=== PATIENT | male | born 1970 ===

== ENCOUNTER 2020-09-03 08:00 | Outpatient (REF) | payer OTHER, SELFPAY ==
[2020-09-03 10:47] LABS: Hematocrit 45.4 % (42-52); Hemoglobin 14.9 g/dl (14.0-18.0); Mean Corpuscular HGB Conc 32.8 g/dl (31.0-36.0); Mean Corpuscular Hemoglobin 30.5 pg (27.0-33.0); Platelet Count 221 X10*3/uL (160-400); Red Blood Count 4.88 X10*6/uL (4.60-5.80); Red Cell Distribution Width 11.9 % (11.0-16.0); White Blood Count 5.5 X10*3/uL (4.8-10.8)
[2020-09-03 11:13] LABS: Alanine Aminotransferase 34 U/L (0-40); Albumin Level 4.5 g/dL (3.5-5.0); Alkaline Phosphatase 68 U/L (39-117); Anion Gap 14 (12-20); Aspartate Amino Transferase 23 U/L (5-37); Bilirubin Direct 0.2 mg/dL (0.0-0.5); Bilirubin Total 0.5 mg/dL (0.0-1.0); Blood Urea Nitrogen 16 mg/dL (9-16); Calcium 9.6 mg/dL (8.4-10.2); Carbon Dioxide 28 mmol/L (22-29); Chloride 104 mmol/L (96-108); Cholesterol 218 mg/dL; Estimated Glomerular Filt Rate 57; Glucose Fasting 105 mg/dL (60-99); HDL Cholesterol 44 mg/dL; LDL Cholesterol Calculated 144 mg/dl; Potassium 4.7 mmol/l (3.3-5.1); Sodium 141 mmol/L (135-145); Total Protein 7.3 g/dL (6.5-8.0); Triglycerides 151 mg/dL
[2020-09-03 11:35] LABS: TSH reflex Free T4 0.81 mIU/mL (0.32-4.0)
== END 2020-09-03 08:01 | disposition home or self-care (01) ==
LOC: HO.WFDLDS 08:00
PROVIDERS: Visit Provider Hospitalist
DX: J45.20 Mild intermittent asthma, uncomplicated (principal); E78.00 Pure hypercholesterolemia, unspecified; E03.9 Hypothyroidism, unspecified
CPT/HCPCS: 36415; 80048; 80061; 80076; 84443; 85027

== ENCOUNTER 2020-09-11 11:48 | Day surgery (SDC) | payer OTHER, SELFPAY ==
--- NOTE | 2020-09-10 09:52 | P.CONAN_ITS ---
Documented by User: Caroline Mejía 09/10/20 09:54 HPI - Anesthesia Eval Consult details Narrative: 50yo M for Upper Endoscopy and Colonoscopy [facility] Past Medical History Medical History Asthma, mild intermittent, well-controlled Chronic GERD Elevated cholesterol Graves' disease Hypothyroidism (acquired) Family History Family History Father Hypertension Mother Family history of thyroid problem Family/Other Depression Bipolar 1 disorder Alcohol abuse Surgical History Surgical History History of tonsillectomy Social History Social History Smoking Status: Never smoker Have you been hit, kicked, punched, or otherwise hurt by someone within the past year? If so, by whom?: No Advance Directives: No Advance Directives Information Provided: Yes Recently lost weight without trying: No Meds Allergies Allergy/AdvReac Type Severity Reaction Status Date / Time latex Allergy Unknown Unknown Verified 09/10/20 10:24 Home Medications Medication Instructions Recorded Confirmed Type albuterol sulfate 90 mcg/actuation INHALATION 08/06/20 History aerosol inhaler atorvastatin 10 mg tablet 10 mg PO DAILY 08/06/20 History beclomethasone dipropionate 80 1 inh INHALATION BID 08/06/20 History mcg/actuation HFA breath activated aerosol levothyroxine 175 mcg tablet 175 mcg PO DAILY 08/06/20 History Exam Exam Date and Time: September 10, 2020 0952 Assessment and Plan Assessment Anesthesia Assessment: Chart Reviewed Documented by User: Iban Leon MD 09/11/20 13:03 [facility] Past Medical History Medical History Asthma, mild intermittent, well-controlled Chronic GERD Elevated cholesterol Graves' disease Hypothyroidism (acquired) Family History Family History Father Hypertension Mother Family history of thyroid problem Family/Other Depression Bipolar 1 disorder Alcohol abuse Surgical History Surgical History History of tonsillectomy Social History Social History Smoking Status: Never smoker Have you been hit, kicked, punched, or otherwise hurt by someone within the past year? If so, by whom?: No Advance Directives: No Advance Directives Information Provided: Yes Recently lost weight without trying: No Meds Allergies Allergy/AdvReac Type Severity Reaction Status Date / Time latex Allergy Unknown Unknown Verified 09/10/20 10:24 Home Medications Medication Instructions Recorded Confirmed Type albuterol sulfate 90 mcg/actuation INHALATION 08/06/20 History aerosol inhaler atorvastatin 10 mg tablet 10 mg PO DAILY 08/06/20 History beclomethasone dipropionate 80 1 inh INHALATION BID 08/06/20 History mcg/actuation HFA breath activated aerosol levothyroxine 175 mcg tablet 175 mcg PO DAILY 08/06/20 History Exam Airway Mallampati Class: II TM Dist: >3cm Neck ROM: Full Loose/Missing/Broken Teeth: No Heart: RRR Lungs: NL Other: AO Assessment and Plan Assessment Anesthesia Assessment: Anesthesia Plan Discussed and Chart Reviewed Final Anesthetic Review NPO: Yes ASA Class: III Final Preanesthetic Review: No Changes in Pt Med Stat, Meds/Allgs Chart Reviewed, Consent Obtained/Reviewed and Anes Risks/Benef Reviewed Patient Risk: Intermediate Procedure Risk: Low Anesthetic Plan Anesthetic Plan: MAC: Disposition: Standard PACU
[2020-09-11 11:58] VITALS: BP 147/78; PULSE 71; RESP 18; TEMP 36.1; O2SAT 99; BMI 34.1
[2020-09-11] MEDS: Lactated Ringers 1,000 ML 100 ML IVCONT (12:18)
--- NOTE | 2020-09-11 13:03 | MHC.SHP ---
Pre-Procedural Eval Section B Chief Complaint: reflux,screening Details of Present Illness: see H&P no changes Relevant Family History (Specify if Yes): No Relevant Social History: None Present Medications: see Short Stay Collaborative assessment Medical History: No relevant PMH History of Previous Operations: No relevant previous surgery Allergies: Allergies Allergy/AdvReac Type Severity Reaction Status Date / Time latex Allergy Unknown Unknown Verified 09/10/20 10:24 Review of Systems Sugical H&P ROS: Negative: Constitution, Cardiovascular, Respiratory, Neurological, Psychiatric, Hem-Onc, Allergic/Immunologic, Gastrointestinal, Genitourinary, Musculoskeletal, Integumentary, Endocrine and Eyes/Ears/Nose/Throat Exam Surgical H&P Exam: Normal: HEENT, Normal: Heart, Normal: Lungs, Normal: Extremities, Normal: Abdomen, Normal: Skin and Normal: Neurological Plan Diagnosis/Plan: Unchanged I have reviewed the history and physical and performed a pertinent physical examination on my patient. No changes have occurred unless specified.
[2020-09-11 13:45] VITALS: BP 86/45; PULSE 75; RESP 16; TEMP 37.5; O2SAT 94
--- NOTE | 2020-09-11 13:52 | PM.OP ---
Brief Operative Note Date of Service: 09/11/20 Pre-op diagnosis: gerd screening Post-op diagnosis: same (colon polyp) Procedure: egd, colon Surgeon: Mauricio Astudillo Anesthesia: MAC Estimated blood loss (mL): 5 Pathology: other (bx, antrum, egj, ti, polyp 40cm) Condition: stable Disposition: PACU
--- NOTE | 2020-09-13 16:03 | OP_ITS ---
SURGEON: Mauricio Astudillo MD INDICATIONS: Gastroesophageal reflux disease and colon cancer screening. PREOPERATIVE DIAGNOSIS: POSTOPERATIVE DIAGNOSIS: PROCEDURE PERFORMED: 1. Upper endoscopy with biopsy. 2. Colonoscopy to the terminal ileum with biopsy. ESTIMATED BLOOD LOSS: COMPLICATIONS: ANESTHESIA: ASSISTANTS: SPECIMENS: MEDICATIONS: Monitored anesthesia care. DESCRIPTION OF PROCEDURE: History and physical performed. The risks and benefits of the procedure were explained to the patient. Informed consent was obtained. The patient was placed in the left lateral decubitus position. The Olympus video gastroscope was introduced into the esophagus, stomach, and duodenum. Examination was performed and the scope was removed. He was repositioned for colonoscopy. A digital rectal exam was performed and was found to be normal. The Olympus pediatric video colonoscope was introduced into the rectum and advanced to the cecum without difficulty. The cecum was identified by transillumination, palpation, and identification of ileocecal valve. Examination was performed and the scope was removed. He tolerated both procedures well, was taken to recovery area in stable condition. FINDINGS: UPPER ENDOSCOPY: Esophagus: The esophagus was normal. There was no evidence of Agee's esophagus or esophagitis. Biopsies were obtained from the EG junction. Stomach: The stomach showed no evidence of masses, ulcers, or polyps. Antral biopsies were obtained to rule out H pylori. Duodenum: The bulb and second portion were normal. COLONOSCOPY: The terminal ileum was normal. There were few areas of mild erythema suspicious for backwash ileitis. Biopsies were obtained from the ileum. The visualized colonic mucosa was within normal limits without evidence of masses or ulcers. At 40 cm from the anal verge, was a less than 5 mm sessile polyp, which was removed with biopsy forceps. No other polyps were identified. Retroflexed examination showed small internal hemorrhoids and some hypertrophic anal papillae. IMPRESSION: 1. Gastroesophageal reflux disease. 2. Colon polyp. 3. Question of mild ileitis. RECOMMENDATION: Follow up the biopsy results. MD MARTA Oh/KATH / [id number]
== END 2020-09-11 23:59 | disposition home or self-care (01) ==
PROVIDERS: PCP Hospitalist; Visit Provider Internal Medicine Gastroenterology
PROC: (CPT 45380; principal; 2020-09-11 13:10)
DX: Z12.11 Encounter for screening for malignant neoplasm of colon (principal); D12.5 Benign neoplasm of sigmoid colon; K64.8 Other hemorrhoids; K62.89 Other specified diseases of anus and rectum; K21.9 Gastro-esophageal reflux disease without esophagitis; J45.20 Mild intermittent asthma, uncomplicated; E78.00 Pure hypercholesterolemia, unspecified; E03.9 Hypothyroidism, unspecified; E05.00 Thyrotoxicosis with diffuse goiter without thyrotoxic crisis or storm; Z79.899 Other long term (current) drug therapy; Z91.040 Latex allergy status
CPT/HCPCS: 45380; 43239; 88305; 88342; J3010

== ENCOUNTER 2021-07-08 10:44 | Outpatient (REF) | payer OTHER, SELFPAY ==
[2021-07-08 14:10] LABS: Hematocrit 43.8 % (42.0-52.0); Hemoglobin 14.3 g/dl (14.0-18.0); Mean Corpuscular HGB Conc 32.6 g/dl (31.0-36.0); Mean Corpuscular Hemoglobin 29.9 pg (27.0-33.0); Mean Corpuscular Volume 91.4 fL (80.0-98.0); Mean Platelet Volume 10.1 fL (9.4-12.4); Platelet Count 226 X10*3/uL (160-400); Red Blood Count 4.79 X10*6/uL (4.60-5.80); Red Cell Distribution Width 12.2 % (11.0-16.0)
[2021-07-08 14:40] LABS: Alanine Aminotransferase 42 U/L (0-40); Albumin Level 4.3 g/dL (3.5-5.0); Alkaline Phosphatase 76 U/L (39-117); Anion Gap 11 (12-20); Aspartate Amino Transferase 24 U/L (5-37); Bilirubin Direct < 0.2 mg/dL (0.0-0.5); Bilirubin Total 0.3 mg/dL (0.0-1.0); Blood Urea Nitrogen 10 mg/dL (9-16); Calcium 9.6 mg/dL (8.4-10.2); Carbon Dioxide 29 mmol/L (22-29); Chloride 103 mmol/L (96-108); Cholesterol 201 mg/dL; Estimated Glomerular Filt Rate > 60; Glucose Fasting 77 mg/dL (60-99); HDL Cholesterol 48 mg/dL; LDL Cholesterol Calculated 122 mg/dl; Potassium 4.8 mmol/L (3.3-5.1); Sodium 138 mmol/L (135-145); Total Protein 6.9 g/dL (6.5-8.0); Triglycerides 157 mg/dL
[2021-07-08 14:51] LABS: TSH reflex Free T4 0.38 uIU/mL (0.32-4.0)
== END 2021-07-08 10:45 | disposition home or self-care (01) ==
LOC: HO.WFDLDS 10:44
PROVIDERS: Visit Provider Hospitalist
DX: Z00.00 Encounter for general adult medical examination without abnormal findings (principal)
CPT/HCPCS: 36415; 80048; 80061; 80076; 84443; 85027

== ENCOUNTER 2023-04-14 10:08 | Outpatient (AMB) | payer OTHER, SELFPAY ==
[2023-04-14 10:13] VITALS: BP 118/62; PULSE 62; RESP 12; TEMP 36.3; O2SAT 99; BMI 31.7
--- NOTE | 2023-04-14 10:13 | MHC.PC.OV ---
Vital Signs 04/14/23 10:13 Height 5 ft 6 in Weight 196 lb 6 oz BMI 31.7 BP 118/62 Blood Pressure Location Rt brachial Position Sitting Respiration 12 Pulse 62 Pulse Source Pulse Oximeter Temp 97.4 F Temp Source Temporal Artery Scan Pulse Oximetry (%) 99 Oxygen Delivery Method Room Air Intake Visit Reasons: Follow up anxiety/depression/TSH Senior Sourcing Manager Required: No Accompanied by: Self / Same As Patient Allergies latex Allergy (Unknown, Verified 04/14/23 10:36) Unknown Medication List - Last Reconciled 04/14/23 by Tony Salazar CNP albuterol sulfate 90 mcg/actuation inhalation atorvastatin 10 mg PO DAILY beclomethasone dipropionate 80 mcg/actuation (Qvar RediHaler) 1 inh inhalation BID PRN 3 months cetirizine (Zyrtec) 10 mg PO DAILY PRN citalopram 20 mg PO DAILY 90 days citalopram 10 mg PO DAILY levothyroxine 175 mcg PO DAILY 1 month [id number] K-lycop 400-20-370 mcg (Men's 50 Plus Multivitamin) 1 tab PO DAILY omega-3 fatty acids (Fish Oil Concentrate) 1,000 mg PO DAILY omeprazole 20 mg PO DAILY Tobacco use date assessed: 04/14/23 Dental Screening Dental Screen Date: 04/14/23 Did you have a dental visit in the last 12 months?: Yes Did you have a dental problem in the last 6 months where you did not have access to dental care?: No Was dental information given to patient?: Patient has dentist HPI HPI Comments History of Present Illness Details 52-year-old male presents for hypothyroidism, anxiety, and depression follow-up. He is on levothyroxine and citalopram. He notes he has been taking his medications as prescribed. He notes that his anxiety and depression symptoms are controlled with Citalopram. He notes he is not followed by a therapist and declines a referral at this time. No acute symptoms at this time. He notes he did not get TSH/T4 blood work done. His last for physical exam and blood work was in 2020. [facility] Medical History Asthma, mild intermittent, well-controlled Chronic GERD Elevated cholesterol Graves' disease Hypothyroidism (acquired) Surgical History History of tonsillectomy Family History Father Hypertension Mother Family history of thyroid problem Family/Other Depression Bipolar 1 disorder Alcohol abuse Social History Housing: House Patient Tobacco Use Status: Former Tobacco user e-Cigarette/Vaping Use: Currently Using (THC Vape) Second Hand Smoke Exposure: No service: Yes Current occupational status: employed Current occupation: RN Current occupational exposures/hazards: No Cognitive needs: No Hearing needs: No Vision needs: No Questionnaire PHQ-9 Over the last 2 weeks, how often have you been bothered by any of the following problems? 1. Little interest or pleasure in doing things: several days 2. Feeling down, depressed, or hopeless: several days 3. Trouble falling or staying asleep, or sleeping too much: several days 4. Feeling tired or having little energy: more than half the days 5. Poor appetite or overeating: several days 6. Feeling bad about yourself - or that you are a failure or have let yourself or your family down: not at all 7. Trouble concentrating on things, such as reading the newspaper or watching television: several days 8. Moving or speaking so slowly that other people could have noticed. Or the opposite - being so fidgety or restless that you have been moving around a lot more than usual: several days 9. Thoughts that you would be better off or of hurting yourself in some way: not at all Total score: 8 Depression Screening Interpretation: Positive Depression Screening Follow-up: Existing condition and In treatment Source: Developed by Drs. Toan Peng, Lala Zeng, Hammad Gipson and colleagues, with an educational mami from [employer]. Thrive Questionnaire Date Thrive assessed: 04/14/23 I am a: Patient What is your living situation today?: I have a steady place to live Within the past 12 months, did the food you bought not last and you didn't have the money to get more?: Never true Within the past 12 months, did you worry whether your food would run out before you got money to buy more?: Never true Do you have trouble paying for medicines?: No Do you have trouble getting transportation to medical appointments?: No Do you have trouble paying your heating and electricity bill?: No Do you have trouble taking care of your child, family member or friend?: No Do you have trouble with day-to-day activities such as bathing, preparing meals, shopping, managing finances, etc.?: No Are you currently unemployed and looking for a job?: No Are you interested in more education?: No Please select the resources that you would like help with: None Currently or been in a relationship where the following occur: no concerns reported AUDIT C Alcohol Use Questionnaire (AUDIT-C) 1. How often do you have a drink containing alcohol?: 2-3 times a week 2. How many drinks containing alcohol do you have on a typical day when you are drinking?: 1 or 2 3. How often do you have six or more drinks on one occasion?: Never Total Score: 3 EMILEE-7 AMB Questionnaire EMILEE-7 Date EMILEE - 7 assessed: 04/14/23 Feeling nervous, anxious, or on edge: 2 = More than half the days Not being able to stop or control worryin = More than half the days Worrying too much about different things: 2 = More than half the days Trouble relaxin = More than half the days Being so restless that it is hard to sit still: 2 = More than half the days Becoming easily annoyed or irritable: 2 = More than half the days Feeling afraid as if something awful might happen: 2 = More than half the days Total EMILEE-7 score (0-4 normal; 5-9 mild; 10-14 moderate; 15-21 severe): 14 Source: Developed by Drs. Toan Peng, Lala Zeng, Hammad Gipson and colleagues, with an educational mami from [employer]. Review of Systems Const Details: Const Denies chills, Denies fatigue, Denies fever(s), Denies headache(s) and Denies weakness ENT Denies dizziness and Denies headache(s) Card Denies chest pain, Denies lightheadedness, Denies dyspnea and Denies other (Palpitations) Resp Denies cough, Denies dyspnea, Denies wheezing and Denies other ( shortness of breath) GI Denies abdominal pain, Denies melena, Denies hematochezia, Denies change in bowel habits, Denies dyspepsia and Denies nausea Denies hematuria and Denies dysuria Musc Denies abnormal gait, Denies myalgias, Denies arthralgias, Denies numbness and Denies tingling Skin/Breast Denies rash, Denies unusual bruising and Denies wounds Neuro Denies abnormal gait, Denies dizziness, Denies headache(s), Denies memory loss, Denies numbness, Denies Sensory deficit (Neuro), Denies tingling and Denies weakness Psych Denies anxiety, Denies depression, Denies memory loss Endo Denies cold intolerance, Denies fatigue, Denies heat intolerance, Denies polydipsia and Denies polyuria Aller/Immun Denies wheezing Physical exam (Primary Care) Vital Signs: Last Vital Signs Temp 97.4 F 04/14/23 10:13 Pulse 62 04/14/23 10:13 Resp 12 04/14/23 10:13 BP 118/62 04/14/23 10:13 Pulse Ox 99 04/14/23 10:13 Oxygen Delivery Method Room Air 04/14/23 10:13 BMI result Body Mass Index 31.7 Tobacco/Smoking Status: Tobacco use Status Tobacco use date assessed 04/14/23 04/14/23 10:24 Patient Tobacco Use Status Former Tobacco user 04/14/23 10:24 e-Cigarette/Vaping Use Currently Using (THC Vape) 04/14/23 10:24 PHQ-9: PHQ-9 Score PHQ-9: Total score 8 04/14/23 10:26 Depression Screening Interpretation: Positive Depression Screening Follow-up: Existing condition and In treatment Thrive Assessment: Date of Thrive Assessment Date Thrive assessed 04/14/23 04/14/23 10:24 Currently or been in a relationship where the following occur: no concerns reported Const Other: General: no acute distress and well developed Nutritional Appearance: well nourished Orientation/consciousness: patient oriented x3 HENMT Head: Yes normocephalic and Yes atraumatic Eyes General: appearance normal, both eyes and all related structures Pupils: Equal, round and reactive pupils present EOM: EOMs intact bilaterally Resp Effort & Inspection: normal respiratory effort Auscultation: clear to auscultation bilaterally Cardio Rate: regular rate Rhythm: regular rhythm Heart sounds: S1 normal heart sound present, S2 normal heart sound present, no gallops, no murmurs and no rubs GI Palpation (GI): No Abdominal aortic bruit present, Soft to palpation, nontender, No hepatosplenomegaly present and No Rebound tenderness present Auscultation: normal bowel sounds General: Yes no CVA tenderness Back/Spine/Pelvis Back: no CVA tenderness Cervical Spine: cervical ROM normal and No Cervical spine tenderness Thoracic/Lumbar Spine: thoraco-lumbar ROM normal, No pain with thoraco-lumbar ROM, No thoracic spinal tenderness and No lumbar spinal tenderness Extrem General: Yes normal to inspection, No edema and No calf tenderness Skin General: warm and dry. Normal skin color. Normal skin turgor Lesions: no lesions Rashes: no rashes Trauma: no lacerations or abrasions Wounds: no wounds Nails: normal Neuro General: patient oriented x3, gait normal and no focal neuro deficit Cranial nerves: Yes Equal, round and reactive pupils present Cognition (Neuro): normal cognition Gait exam (Neuro): Normal gait present Sensory Exam: No Sensory deficit (Neuro) Psych Appearance: grossly normal Affect: normal affect Attitude: cooperative Thought process: Normal thought process present Assessment and Plan Assessment & Plan (1) Anxiety associated with depression: Code(s): F41.8 - Other specified anxiety disorders Plan: PHQ-9 and EMILEE-7 scores revealed mild depression and moderate anxiety bilateral Citalopram as prescribed Declined talked therapy Routine exercise encouraged Advised to get fasting blood work done before next visit Follow-up in 1-2 months for complete physical exam or return sooner with worsening or new symptoms Verbalized understanding and agreed with treatment plan. (2) Hypothyroidism (acquired): Code(s): E03.9 - Hypothyroidism, unspecified Plan: TSH was normal 06/2021 Encouraged to get TSH/T4 blood work done Continue to take levothyroxine 175 mcg daily as prescribed Verbalized understanding and agreed with treatment plan. (3) Laboratory tests ordered as part of a complete physical exam (CPE): Code(s): Z00.00 - Encounter for general adult medical examination without abnormal findings Plan: Fasting labs ordered as part of a complete physical exam. Advised to fast for at least 10 hours before getting labs drawn. May drink water Verbalized understanding and agreed with treatment plan. Orders: Orders Comprehensive [place]. Panel Fast Today Z00.00 - Encounter for general adult medical examination without abnormal findings Lipid Panel Today Z00.00 - Encounter for general adult medical examination without abnormal findings Complete Blood Count Auto Diff Today Z00.00 - Encounter for general adult medical examination without abnormal findings Coding Level of Care Code Est Pt Level 3 (76051) Diagnoses Anxiety associated with depression F41.8 Hypothyroidism (acquired) E03.9 Laboratory tests ordered as part of a complete physical exam (CPE) Z00.00
== END 2023-04-14 10:53 | disposition home or self-care (01) ==
PROVIDERS: PCP Hospitalist; Visit Provider Nurse Practitioner Family
DX: F41.8 Other specified anxiety disorders (principal); E03.9 Hypothyroidism, unspecified; Z00.00 Encounter for general adult medical examination without abnormal findings
CPT/HCPCS: 99213

== ENCOUNTER 2023-10-18 10:00 | Outpatient (REF) | payer OTHER, SELFPAY ==
[2023-10-18 11:59] LABS: MANUAL DIFF FLAG NO
[2023-10-18 12:01] LABS: Basophils Percent Auto 0.4 % (0-2); Eosinophils Absolute Auto 0.2 X10*3/uL (0.0-0.4); Eosinophils Percent Auto 4.3 % (0-4); Hematocrit 42.9 % (42.0-52.0); Hemoglobin 14.5 g/dl (14.0-18.0); Imm Gran Abs Auto 0.01 X10*3/uL (0.00-0.03); Imm Gran Pct Auto 0.2 % (0.0-0.4); Lymphocytes Absolute Auto 1.5 X10*3/uL (1.2-4.9); Lymphocytes Percent Auto 27.6 % (20-40); Mean Corpuscular HGB Conc 33.8 g/dl (31.0-36.0); Mean Corpuscular Hemoglobin 31.4 pg (27.0-33.0); Mean Corpuscular Volume 92.9 fL (80.0-98.0); Mean Platelet Volume 10.2 fL (9.4-12.4); Monocytes Absolute Auto 0.3 X10*3/uL (0.1-1.2); Monocytes Percent Auto 6.3 % (2-11); Neutrophils Absolute Auto 3.3 x10*3/uL (2.0-8.3); Neutrophils Percent Auto 61.2 % (45-73); Platelet Count 209 X10*3/uL (160-400); Red Blood Count 4.62 X10*6/uL (4.60-5.80); Red Cell Distribution Width 11.9 % (11.0-16.0); White Blood Count 5.4 X10*3/uL (4.8-10.8)
[2023-10-18 12:25] LABS: Alanine Aminotransferase 21 U/L (0-40); Albumin Level 4.1 g/dL (3.5-5.0); Alkaline Phosphatase 56 U/L (39-117); Anion Gap 10 (12-20); Aspartate Amino Transferase 18 U/L (5-37); Bilirubin Total 0.5 mg/dL (0.0-1.0); Blood Urea Nitrogen 11 mg/dL (9-16); Calcium 9.4 mg/dL (8.4-10.2); Carbon Dioxide 27 mmol/L (22-29); Chloride 105 mmol/L (96-108); Cholesterol 186 mg/dL (<200); Estimated Glomerular Filt Rate > 60; Glucose Fasting 98 mg/dL (60-99); HDL Cholesterol 41 mg/dL (>40); LDL Cholesterol Calculated 111 mg/dL (<100); Sodium 138 mmol/L (135-145); Total Protein 7.1 g/dL (6.5-8.0); Triglycerides 172 mg/dL (<150)
[2023-10-18 12:33] LABS: TSH reflex Free T4 0.14 uIU/mL (0.32-4.0)
[2023-10-18 13:19] LABS: Free T4 (Free Thyroxine) 1.38 ng/dL (0.71-1.85)
== END 2023-10-18 10:01 | disposition home or self-care (01) ==
LOC: HO.WFDLDS 10:00
PROVIDERS: Visit Provider Nurse Practitioner Family
DX: Z00.00 Encounter for general adult medical examination without abnormal findings (principal); E03.9 Hypothyroidism, unspecified
CPT/HCPCS: 36415; 80053; 80061; 84439; 84443; 85025

== ENCOUNTER 2023-12-07 08:25 | Outpatient (AMB) | payer OTHER, SELFPAY ==
--- NOTE | 2023-12-07 08:27 | A.OFFPC_ITS ---
Vital Signs 12/07/23 08:42 Height 5 ft 6 in Weight 199 lb BMI 32.1 BP 98/70 Blood Pressure Location Lt brachial Position Sitting Respiration 14 Pulse 72 Pulse Source Pulse Oximeter Temp 98.4 F Temp Source Oral Pulse Oximetry (%) 98 Oxygen Delivery Method Room Air Oxygen Flow Rate 98 Intake Visit Reasons: CPE Intake Note: Physical. Intermittent rashes, and bowel issues. Pulmicort is ineffective, states Qvar worked in the past but insurance didn't cover. Lighter Required: No Allergies latex Allergy (Unknown, Verified 12/07/23 08:42) Unknown Medication List - Last Reconciled 12/07/23 by Tony Salazar CNP albuterol sulfate 90 mcg/actuation 2 puffs inhalation Q4-6H 30 days atorvastatin 10 mg PO DAILY budesonide 90 mcg/actuation (Pulmicort Flexhaler) 2 inhalations inhalation BID cetirizine (Zyrtec) 10 mg PO DAILY PRN citalopram 10 mg PO DAILY 90 days citalopram 20 mg PO DAILY 90 days levothyroxine 150 mcg PO DAILY 30 days zkfjarys-wcj-dzixa-vit K-lycop 400-20-370 mcg (Men's 50 Plus Multivitamin) 1 tab PO DAILY omeprazole 20 mg PO DAILY Tobacco use date assessed: 12/07/23 Dental Screening Dental Screen Date: 12/07/23 Did you have a dental visit in the last 12 months?: Yes Did you have a dental problem in the last 6 months where you did not have access to dental care?: No Was dental information given to patient?: Patient has dentist HPI HPI Comments History of Present Illness Details 53-year-old male presents for an extende d physical exam. He has past medical history significant for asthma, chronic GERD, hypothyroidism, hyperlipidemia, anxiety, and depression. He admits to taking his medications as prescribed without adverse reactions. He notes that is anxiety and depression symptoms are moderately controlled. He states that he has good and bad days. No SI/HI. He reports poorly control asthma after switching to Pulmicort. He notes that Pulmicort is ineffective, Qvar worked well but his health plan stopped covering the medication. He reports episodes of loose stool and diarrhea was twice monthly for the past 4 months; he notes associated ribbon-like stool and poor appetite. No abdominal pain, nausea, vomiting, fluctuance, or bloody stool. He states that he occasionally takes Metamucil capsule in the evenings. Last colonoscopy was with [facility] [place] 4 years ago: Benign polyp He states that he has not received the shingles vaccines He states that he is up-to-date on the flu and covid vaccines [facility] Medical History Asthma, mild intermittent, well-controlled Chronic GERD Elevated cholesterol Graves' disease Hypothyroidism (acquired) Surgical History History of tonsillectomy Family History Father Hypertension Mother Family history of thyroid problem Family/Other Depression Bipolar 1 disorder Alcohol abuse Social History Housing: House Patient Tobacco Use Status: Former Tobacco user Tobacco use type: Cigarette Years Smoked: 20 e-Cigarette/Vaping Use: Currently Using (THC Vape) Second Hand Smoke Exposure: No service: Yes Current occupational status: employed Current occupation: RN Current occupational exposures/hazards: No Cognitive needs: No Hearing needs: No Vision needs: No Questionnaire PHQ-9 Over the last 2 weeks, how often have you been bothered by any of the following problems? 1. Little interest or pleasure in doing things: more than half the days 2. Feeling down, depressed, or hopeless: several days 3. Trouble falling or staying asleep, or sleeping too much: nearly every day 4. Feeling tired or having little energy: nearly every day 5. Poor appetite or overeating: several days 6. Feeling bad about yourself - or that you are a failure or have let yourself or your family down: more than half the days 7. Trouble concentrating on things, such as reading the newspaper or watching television: more than half the days 8. Moving or speaking so slowly that other people could have noticed. Or the opposite - being so fidgety or restless that you have been moving around a lot more than usual: more than half the days 9. Thoughts that you would be better off or of hurting yourself in some way: not at all Total score: 16 Depression Screening Interpretation: Positive Depression Screening Follow-up: Existing condition Depression Screening Done: Yes 94868 - PHQ-9 Billing: Yes Source: Developed by Drs. Toan Peng, Lala Zeng, Hammad Gipson and colleagues, with an educational mami from [employer]. Thrive Questionnaire Date Thrive assessed: 12/07/23 I am a: Patient What is your living situation today?: I have a steady place to live Within the past 12 months, did the food you bought not last and you didn't have the money to get more?: Never true Within the past 12 months, did you worry whether your food would run out before you got money to buy more?: Never true Do you have trouble paying for medicines?: No Do you have trouble getting transportation to medical appointments?: No Do you have trouble paying your heating and electricity bill?: No Do you have trouble taking care of your child, family member or friend?: No Do you have trouble with day-to-day activities such as bathing, preparing meals, shopping, managing finances, etc.?: Yes Are you currently unemployed and looking for a job?: No Are you interested in more education?: No Please select the resources that you would like help with: None Currently or been in a relationship where the following occur: no concerns reported THRIVE Score: 0 AUDIT C Alcohol Use Questionnaire (AUDIT-C) 1. How often do you have a drink containing alcohol?: 2-3 times a week 2. How many drinks containing alcohol do you have on a typical day when you are drinking?: 1 or 2 3. How often do you have six or more drinks on one occasion?: Less than monthly Total Score: 4 EMILEE-7 AMB Questionnaire EMILEE-7 Date EMILEE - 7 assessed: 12/07/23 Feeling nervous, anxious, or on edge: 2 = More than half the days Not being able to stop or control worryin = Nearly every day Worrying too much about different things: 3 = Nearly every day Trouble relaxin = More than half the days Being so restless that it is hard to sit still: 2 = More than half the days Becoming easily annoyed or irritable: 3 = Nearly every day Feeling afraid as if something awful might happen: 2 = More than half the days Total EMILEE-7 score (0-4 normal; 5-9 mild; 10-14 moderate; 15-21 severe): 17 Source: Developed by Drs. Toan Peng, Lala Zeng, Hammad Gipson and colleagues, with an educational mami from [employer]. EMILEE-7 Assessment Billing EMILEE-7 Assessment Tool: EMILEE-7 Assessment 59733 ACT Questionnaire In the past 4 weeks, how much of the time did your asthma keep you from getting as much done at work, school or at home?: Most of the time During the past 4 weeks, how often have you had shortness of breath?: 3-6 times a week During the past 4 weeks, how often did your asthma symptoms wake you up at night or earlier than usual in the morning?: Not at all During the past 4 weeks, how often have you had to use your rescue inhaler or nebulizer medication?: More than 3 times per day (once or twice a day) How would you rate your asthma control during the past 4 weeks?: Poorly controlled ACT Interpretation: Positive Score: 13 Review of Systems Const Details: Denies chills, Denies fatigue, Denies fever(s), Denies headache(s) and Denies weakness HEENT Denies change in vision, Denies dizziness, Denies headache(s), Denies hearing loss, Denies nasal congestion, Denies sinus pain, Denies sinus pressure and Denies sore throat Card Denies chest pain, Denies lightheadedness, Denies dyspnea and Denies other (palpitations) Resp Denies cough, Denies dyspnea and Denies wheezing GI Reports as per HPI Denies hematuria and Denies dysuria Musc Denies abnormal gait, Denies myalgias, Denies arthralgias, Denies numbness and Denies tingling Skin/Breast Denies rash, Denies unusual bruising and Denies wounds Neuro Denies abnormal gait, Denies dizziness, Denies headache(s), Denies memory loss, Denies numbness, Denies Sensory deficit (Neuro), Denies tingling and Denies weak ness Psych Denies anxiety, Denies depression and Denies memory loss Endo Denies cold intolerance, Denies fatigue, Denies heat intolerance, Denies polydipsia and Denies polyuria Charanjit/Lymph Denies easy bleeding and Denies easy bruising Aller/Immun Denies wheezing Physical exam (Primary Care) Tobacco/Smoking Status: Tobacco use Status Tobacco use date assessed 12/07/23 12/07/23 08:41 Patient Tobacco Use Status Former Tobacco user 12/07/23 08:27 Tobacco use type Cigarette 12/07/23 08:41 e-Cigarette/Vaping Use Currently Using (THC Vape) 12/07/23 08:41 Depression Screening Interpretation: Positive Depression Screening Follow-up: Existing condition Thrive Assessment: Date of Thrive Assessment Date Thrive assessed 04/14/23 12/07/23 08:27 Currently or been in a relationship where the following occur: no concerns reported Const Other: General: no acute distress, well developed, alert and awake Nutritional Appearance: well nourished Orientation/consciousness: patient oriented x3 HENMT Head: Yes normocephalic and Yes atraumatic Ears: hearing grossly normal bilaterally and TM's normal bilaterally General nose exam: Normal external nose present and Normal nares present Mouth: Normal oral and palatal mucosa present and moist mucous membranes Teeth and gingiva: dentition normal Throat: Yes oropharynx normal Eyes Pupils: Equal, round and reactive pupils present and Pupil accommodation reflex normal EOM: EOMs intact bilaterally Neck Neck: Yes normal visual inspection, Yes no lymphadenopathy and Yes trachea midline Thyroid: Thyroid normal Carotids: no bruits Lymphatic: no lymphadenopathy noted Chest Chest palpation & inspection: normal inspection of the chest Resp Effort & Inspection: normal respiratory effort Auscultation: clear to auscultation bilaterally Cardio Rate: regular rate Rhythm: regular rhythm Heart sounds: S1 normal heart sound present, S2 normal heart sound present, no gallops, no murmurs and no rubs Bruits: no abdominal aortic bruits and no carotid bruits GI Palpation (GI): No Abdominal aortic bruit present, Soft to palpation, nontender, No hepatosplenomegaly present and No Rebound tenderness present Auscultation: normal bowel sounds General: Yes no CVA tenderness Back/Spine/Pelvis Back: no CVA tenderness Cervical Spine: cervical ROM normal and No Cervical spine tenderness Thoracic/Lumbar Spine: thoraco-lumbar ROM normal, No pain with thoraco-lumbar ROM, No thoracic spinal tenderness and No lumbar spinal tenderness Skin General: warm and dry. Normal skin color. Normal skin turgor Lesions: no lesions Rashes: no rashes Trauma: no lacerations or abrasions Wounds: no wounds Nails: normal Neuro General: patient oriented x3, gait normal and CN's II-XI intact bilaterally Cranial nerves: Yes Equal, round and reactive pupils present Cognition (Neuro): normal cognition Gait exam (Neuro): Normal gait present Motor exam (neuro): 5/5 motor strength present throughout Sensory Exam: No Sensory deficit (Neuro) Deep tendon reflexes (DTR's): Right patellar reflex intensity grade: 2+ and Left patellar reflex intensity grade: 2+ Extrem General: Yes normal to inspection, No edema and No calf tenderness Psych Appearance: grossly normal Affect: normal affect Attitude: cooperative Thought process: Normal thought process present Assessment and Plan Assessment & Plan (1) Normal physical examination, routine: Code(s): Z00.00 - Encounter for general adult medical examination without abnormal findings Plan: No significant physical restrictions or limitations noted Continue current treatment regimen Healthy diet and routine exercise encouraged Follow-up for anxiety and depression in 2 weeks Return sooner with worsening or new symptoms Verbalized understanding and agreed with treatment plan (2) Anxiety associated with depression: Code(s): F41.8 - Other specified anxiety disorders Plan: Reports moderately controlled anxiety and depression symptoms PHQ-9 and EMILEE-7 scores revealed moderately severe depression and severe anxiety respectively Buspirone 7.5 mg twice daily ordered. Advised to take as prescribed Continue to take citalopram 30 mg daily Routine exercise encouraged Follow-up in 2 weeks or return sooner with worsening or new symptoms Verbalized understanding and agreed with treatment plan (3) Poorly controlled intermittent asthma: Code(s): J45.20 - Mild intermittent asthma, uncomplicated Plan: Poorly control asthma after switching to Pulmicort. Pulmicort is ineffective. Qvar worked well but his health plan stopped covering the medication Will reorder Qvar with prior authorization Albuterol inhaler ordered via nebulizer. Advised to use as prescribed Continue use albuterol rescue inhaler as prescribed Continue to use Pulmicort as prescribed until Qvar is processed then discontinue Pulmicort and start Qvar Referred to pulmonology Follow-up with worsening or new symptoms Verbalized understanding and agreed with treatment plan (4) Hypothyroidism (acquired): Code(s): E03.9 - Hypothyroidism, unspecified Plan: Recent TSH level in September is low, 0.14. Levothyroxine was decreased from 175 mcg to 150 mcg daily. He has not gotten TSH blood work done Encouraged to continue to take levothyroxine 150 mcg as prescribed Advised to get TSH blood work done before his next visit Verbalized understanding and agreed with the plan (5) Loose stools: Code(s): R19.5 - Other fecal abnormalities Plan: Reports episodes of loose stool and diarrhea was twice monthly for the past 4 months; he notes associated ribbon-like stool and poor appetite. No abdominal pain, nausea, vomiting, or fluctuance May take Metamucil powder, 2 scoops mix in 8 oz of water 1-2 times daily based on symptoms severity Referred to Gastroenterology Follow-up with worsening or new symptoms Verbalized understanding and agreed with treatment plan (6) Vaccine counseling: Code(s): Z71.85 - Encounter for immunization safety counseling Plan: He has not been vaccinated for the shingles vaccines Instructed on the importance of vaccination and encouraged to get vaccinated for shingles. Informed that he may request the vaccines from the local pharmacy Verbalized understanding and agrees with the plan Orders: Referrals Gastroenterology Referral R19.5 - Other fecal abnormalities Pulmonology Referral J45.20 - Mild intermittent asthma, uncomplicated Medications: New buspirone 7.5 mg PO BID 30 days 60 tabs 3RF Refilled beclomethasone dipropionate 80 mcg/actuation (Qvar RediHaler) 1 inh inhalation BID PRN 31.8 grams 1RF for wheezing Coding Level of Care Code Est Pt Level 5 (53011) Est Pt Prev Care 40-64y(18557) Diagnoses Normal physical examination, routine Z00.00 Anxiety associated with depression F41.8 Poorly controlled intermittent asthma J45.20 Hypothyroidism (acquired) E03.9 Loose stools R19.5 Vaccine counseling Z71.85 Additional Codes EMILEE-7 Assessment Billing - EMILEE-7 Assessment Tool: EMILEE-7 Assessment 81907 ([id number])
[2023-12-07 08:42] VITALS: BP 98/70; PULSE 72; RESP 14; TEMP 36.9; O2SAT 98; BMI 32.1
== END 2023-12-07 09:12 | disposition home or self-care (01) ==
PROVIDERS: PCP Nurse Practitioner Family; Visit Provider Nurse Practitioner Family
DX: Z00.00 Encounter for general adult medical examination without abnormal findings (principal); F41.8 Other specified anxiety disorders; J45.20 Mild intermittent asthma, uncomplicated; E03.9 Hypothyroidism, unspecified; R19.5 Other fecal abnormalities; Z71.85 Encounter for immunization safety counseling
CPT/HCPCS: 99213; 99396

== ENCOUNTER 2023-12-22 10:14 | Outpatient (AMB) | payer OTHER, SELFPAY ==
--- NOTE | 2023-12-22 10:16 | MHC.OFFVIS ---
Vital Signs 12/22/23 10:18 Height 5 ft 6 in Weight 196 lb 4 oz BMI 31.7 BP 122/68 Blood Pressure Location Rt brachial Position Sitting Pulse 71 Pulse Source Pulse Oximeter Pulse Oximetry (%) 96 Oxygen Delivery Method Room Air Intake Visit Reasons: Mild intermittent asthma Allergies latex Allergy (Unknown, Verified 12/22/23 10:20) Unknown HPI HPI Mild intermittent asthma: Details: Jay is a pleasant 53 year old male, former smoker with 15 pack year history, quit 15 years ago with underlying asthma. He was referred by PCP for pulmonary evaluation. He reports diagnosis of asthma in his 20s, he denies any need for inbutation related to respiratory distress. Symptoms have been well controlled in the past on Qvar. Unfortunately, insurance denied coverage in the past and was placed on pulmicort. He reports poor control with pulmicort and notes persistent dyspnea, chest tightness, and intermittent dry cough. He denies any wheezing. He reports using albuterol frequently with moderate effect. He also notes seasonal allergies, using zyrtec and flonase with good effect. He has a cat and two dogs at home. 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 He reports maternal grandmother, heavy smoker, with lung cancer. [facility] Medical History Asthma, mild intermittent, well-controlled Chronic GERD Elevated cholesterol Graves' disease Hypothyroidism (acquired) Surgical History History of tonsillectomy Family History Father Hypertension Mother Family history of thyroid problem Family/Other Depression Bipolar 1 disorder Alcohol abuse Social History Housing: House Patient Tobacco Use Status: Former Tobacco user Tobacco use type: Cigarette Years Smoked: 20 e-Cigarette/Vaping Use: Currently Using (THC Vape) Second Hand Smoke Exposure: No service: Yes Current occupational status: employed Current occupation: RN Current occupational exposures/hazards: No Cognitive needs: No Hearing needs: No Vision needs: No Review of Systems Const Denies chills, Denies excessive sweating, Denies fever(s), Denies headache(s) and Denies night sweats Eyes Denies dry eyes, Denies irritation and Denies itchy eyes ENT Reports Normal hearing present and Denies headache(s) Card Denies chest pain, Denies chest pain at rest, Denies chest pain with activity, Denies claudication, Denies leg edema, Denies dyspnea, Denies orthopnea and Denies paroxysmal nocturnal dyspnea Resp Denies chest congestion, Denies excessive phlegm production, Denies pain on inspiration, Denies pain with cough, Denies dyspnea, Denies stridor and Denies wheezing Musc Denies myalgias Neuro Reports Normal hearing present and Denies headache(s) Endo Denies excessive sweating Charanjit/Lymph Denies lymphadenopathy Aller/Immun Denies itchy eyes, Denies seasonal rhinorrhea and Denies wheezing Physical Exam Vital Signs: Last Vital Signs Pulse 71 12/22/23 10:18 BP 122/68 12/22/23 10:18 Pulse Ox 96 12/22/23 10:18 Oxygen Delivery Method Room Air 12/22/23 10:18 BMI result Body Mass Index 31.7 Const General: cooperative, healthy appearing, comfortable, no acute distress, well developed and alert Nutritional Appearance: obese Orientation/consciousness: patient oriented x3 Limitations: no limitations HEENT Head: Yes normal to inspection, Yes normocephalic and Yes atraumatic Ears: hearing grossly normal bilaterally and external ears normal Eyes General: appearance normal, both eyes and all related structures Eyelids: Yes eyelids normal Sclerae: sclerae normal EOM: EOMs intact bilaterally Neck Neck: Yes normal visual inspection and Yes no lymphadenopathy Lymphatic: no lymphadenopathy noted Chest Chest palpation & inspection: normal inspection of the chest Resp Effort & Inspection: normal respiratory effort, able to speak in complete sentences, no audible wheezes, no cough, no stridor, not tachypneic, no tripod positioning and no use of accessory muscles Auscultation: clear to auscultation bilaterally Cardio Jugular venous distension: no JVD Rate: regular rate Rhythm: regular rhythm Skin Other: warm, dry General skin exam: no rashes or lesions noted Neuro General: patient oriented x3 Cranial nerves: Yes Normal hearing present Cognition (Neuro): normal cognition Gait exam (Neuro): Normal gait present Extrem General: Yes normal to inspection, Yes capillary refill normal, Yes no clubbing, cyanosis or edema and Yes no pedal edema Psych Appearance: grossly normal and well kempt Speech and movement: Normal speech and movement present and Clear speech present Affect: normal affect Attitude: cooperative Thought process: Normal thought process present Thought content: Normal thought content present Insight: Good insight present (Psych) Judgement: Good judgement present (Psych) Assessment & Plan Assessment & Plan (1) Environmental allergies: Code(s): Z91.09 - Other allergy status, other than to drugs and biological substances Category: Medical (2) Asthma: Code(s): J45.909 - Unspecified asthma, uncomplicated Category: Medical Plan Jay's symptoms are likely related to underlying asthma. Will send for PFT to throughly evaluate. Patient tried and failed pulmicort. Reports excellent control previously on Qvar, will attempt to send in. Will also send for RAST testing. All questions were answered and patient is in agreement of plan. Will follow up after to review response to inhaler and results. Orders: Orders Resp Allergy Profile Region I Today Z91.09 - Other allergy status, other than to drugs and biological substances Complete Blood Count Auto Diff Today Z91.09 - Other allergy status, other than to drugs and biological substances Immunoglobulin E Today Z91.09 - Other allergy status, other than to drugs and biological substances PFT pulmonary function test Today J45.909 - Unspecified asthma, uncomplicated Medications: Refilled beclomethasone dipropionate 80 mcg/actuation (Qvar RediHaler) 1 inh inhalation BID 1 ea 6RF Coding Level of Care Code New Pt Level 4 (99823) Diagnoses Environmental allergies Z91.09 Asthma J45.909
[2023-12-22 10:18] VITALS: BP 122/68; PULSE 71; O2SAT 96; BMI 31.7
== END 2023-12-22 10:45 | disposition home or self-care (01) ==
PROVIDERS: PCP Nurse Practitioner Family; Visit Provider Nurse Practitioner Family
DX: Z91.09 Other allergy status, other than to drugs and biological substances (principal); J45.909 Unspecified asthma, uncomplicated
CPT/HCPCS: 99204

== ENCOUNTER → 2023-12-22 10:14 | Outpatient (BNVA) | payer OTHER, SELFPAY | PROVIDERS: PCP Nurse Practitioner Family; Visit Provider Nurse Practitioner Family ==

== ENCOUNTER 2023-12-22 10:57 | Outpatient (REF) | payer OTHER, SELFPAY ==
[2023-12-22 14:34] LABS: MANUAL DIFF FLAG NO
[2023-12-22 14:43] LABS: Basophils Percent Auto 0.3 % (0-2); Eosinophils Absolute Auto 0.2 X10*3/uL (0.0-0.4); Eosinophils Percent Auto 2.8 % (0-4); Hematocrit 44.2 % (42.0-52.0); Hemoglobin 14.8 g/dl (14.0-18.0); Imm Gran Abs Auto 0.01 X10*3/uL (0.00-0.03); Imm Gran Pct Auto 0.2 % (0.0-0.4); Lymphocytes Absolute Auto 1.5 X10*3/uL (1.2-4.9); Lymphocytes Percent Auto 25.6 % (20-40); Mean Corpuscular HGB Conc 33.5 g/dl (31.0-36.0); Mean Corpuscular Hemoglobin 31.6 pg (27.0-33.0); Mean Corpuscular Volume 94.2 fL (80.0-98.0); Mean Platelet Volume 10.1 fL (9.4-12.4); Monocytes Absolute Auto 0.4 X10*3/uL (0.1-1.2); Monocytes Percent Auto 6.2 % (2-11); Neutrophils Absolute Auto 3.8 x10*3/uL (2.0-8.3); Neutrophils Percent Auto 64.9 % (45-73); Platelet Count 239 X10*3/uL (160-400); Red Blood Count 4.69 X10*6/uL (4.60-5.80); Red Cell Distribution Width 12.5 % (11.0-16.0); White Blood Count 5.8 X10*3/uL (4.8-10.8)
[2023-12-22 15:50] LABS: TSH reflex Free T4 0.62 uIU/mL (0.32-4.0)
[2023-12-23 20:28] LABS: Class Alternaria alternata 0; Class Aspergillus fumigatus 0; Class Bermuda Grass 0; Class Birch 0; Class Cat Dander 3; Class Cladosporium herbarum 0; Class Cockroach 0; Class Common Ragweed 0; Class Cottonwood 0; Class Derm. pterony 0; Class Dermatophagoides farinae 0; Class Dog Dander 0/1; Class Elm 0; Class Maple Box Elder 0; Class Mountain Cedar 0; Class Mouse Urine Protein 0; Class Mugwort 0; Class Oak 0; Class Penicillium crysogenum 0; Class Rough Pigweed 0; Class Sheep Sorrel 0; Class Sycamore 0; Class Timothy Grass 0; Class Walnut Tree 0; Class White Ash 0; Class White Mulberry 0; D001 IgE D pteronyssinus <0.10 kU/L; D002 - IgE D farinae <0.10 kU/L; E001 - IgE Cat Dander 4.48 kU/L; E005 - IgE Dog Dander 0.21 kU/L; E072-IgE Mouse Urine <0.10 kU/L; G002 IgE Bermuda Grass <0.10 kU/L; G006 - IgE Timothy Grass <0.10 kU/L; I006-IgE Cockroach, German <0.10 kU/L; Immunoglobulin E 115 kU/L (<OR=114); M001 IgE Penicillium chrysogen <0.10 kU/L; M002 - IgE Cladosporium herbar <0.10 kU/L; M003 - IgE Aspergillus fumigat <0.10 kU/L; M006 - IgE Alternaria alternat <0.10 kU/L; T001 IgE Maple/Box Elder <0.10 kU/L; T003 IgE Common Silver Birch <0.10 kU/L; T006 - IgE Cedar, Mountain <0.10 kU/L; T007 - IgE Oak, White <0.10 kU/L; T008 IgE Elm, American <0.10 kU/L; T010 - IgE Walnut <0.10 kU/L; T011 - IgE Maple Leaf Sycamore <0.10 kU/L; T014 - IgE Cottonwood <0.10 kU/L; T015 - IgE Ash, White <0.10 kU/L; T070 - IgE White Mulberry <0.10 kU/L; W001 - IgE Ragweed, Short <0.10 kU/L; W006 - IgE Mugwort <0.10 kU/L; W014 IgE Pigweed, Common <0.10 kU/L; W018 IgE Sheep Sorrel <0.10 kU/L
== END 2023-12-22 10:58 | disposition home or self-care (01) ==
LOC: HO.WFDLDS 10:57
PROVIDERS: Nurse Practitioner Family; Visit Provider Nurse Practitioner Family
DX: E03.9 Hypothyroidism, unspecified (principal); Z91.09 Other allergy status, other than to drugs and biological substances
CPT/HCPCS: 36415; 82785; 84443; 85025; 86003

== ENCOUNTER 2023-12-27 08:54 | Outpatient (AMB) | payer OTHER, SELFPAY ==
--- NOTE | 2023-12-27 09:03 | A.OFFPC_ITS ---
Vital Signs 12/27/23 09:04 Height 5 ft 6 in Weight 195 lb 6 oz BMI 31.5 BP 124/66 Blood Pressure Location Lt brachial Position Sitting Respiration 14 Pulse 66 Pulse Source Pulse Oximeter Temp 97.4 F Temp Source Temporal Artery Scan Pulse Oximetry (%) 99 Oxygen Delivery Method Room Air Intake Visit Reasons: 2 wks f/u anxiety, depression Game Producer Required: No Accompanied by: Self / Same As Patient Allergies latex Allergy (Unknown, Verified 12/27/23 09:13) Unknown Medication List - Last Reconciled 12/27/23 by Tony Salazar CNP albuterol sulfate 90 mcg/actuation 2 puffs inhalation Q4-6H 30 days atorvastatin 10 mg PO DAILY beclomethasone dipropionate 80 mcg/actuation (Qvar RediHaler) 1 inh inhalation BID buspirone 7.5 mg PO BID 30 days cetirizine (Zyrtec) 10 mg PO DAILY PRN citalopram 10 mg PO DAILY 90 days citalopram 20 mg PO DAILY 90 days levothyroxine 150 mcg PO DAILY 30 days qzirnrki-izb-kqqcf-vit K-lycop 400-20-370 mcg (Men's 50 Plus Multivitamin) 1 tab PO DAILY omeprazole 20 mg PO DAILY Tobacco use date assessed: 12/07/23 Dental Screening Dental Screen Date: 12/27/23 Did you have a dental visit in the last 12 months?: Yes Did you have a dental problem in the last 6 months where you did not have access to dental care?: No Was dental information given to patient?: Patient has dentist HPI HPI Comments History of Present Illness Details 53-year-old male presents for anxiety, d epression, and hypothyroidism follow-up He admits to taking his medications as prescribed without adverse reactions He reports significant anxiety and depression symptoms on current treatment regimen He offers no complaints and denies acute symtpoms at this time [facility] Medical History Asthma, mild intermittent, well-controlled Chronic GERD Elevated cholesterol Graves' disease Hypothyroidism (acquired) Surgical History History of tonsillectomy Family History (Updated 12/27/23 @ 09:10 by KIRTI Sher) Father Hypertension Mother Family history of thyroid problem Family/Other Depression Bipolar 1 disorder Alcohol abuse Other Mental health disorder Social History Household Members: Spouse Both parents involved: No Caregiver staying overnight: No Housing: House Are you a primary critical care specialist to a significant other at home: No Do you presently have visiting nurse or other home services: No 75 years or older and lives alone: No Alcohol intake: current Alcohol intake frequency: a few times a month Alcohol type: beer Patient Tobacco Use Status: Former Tobacco user Tobacco use type: Cigarette Years Smoked: 20 e-Cigarette/Vaping Use: Former Use (THC Vape) Second Hand Smoke Exposure: No service: Yes Current occupational status: employed Current occupation: RN Current occupational exposures/hazards: No Cognitive needs: No Hearing needs: No Vision needs: No Questionnaire PHQ-9 Over the last 2 weeks, how often have you been bothered by any of the following problems? 1. Little interest or pleasure in doing things: more than half the days 2. Feeling down, depressed, or hopeless: more than half the days 3. Trouble falling or staying asleep, or sleeping too much: more than half the days 4. Feeling tired or having little energy: several days 5. Poor appetite or overeating: several days 6. Feeling bad about yourself - or that you are a failure or have let yourself or your family down: several days 7. Trouble concentrating on things, such as reading the newspaper or watching television: several days 8. Moving or speaking so slowly that other people could have noticed. Or the opposite - being so fidgety or restless that you have been moving around a lot more than usual: more than half the days 9. Thoughts that you would be better off or of hurting yourself in some way: not at all Total score: 12 Depression Screening Interpretation: Positive Depression Screening Follow-up: Existing condition and In treatment Depression Screening Done: Yes 28300 - PHQ-9 Billing: Yes Source: Developed by Drs. Toan Peng, Lala Zeng, Hammad Gipson and colleagues, with an educational mami from [employer]. Thrive Questionnaire Date Thrive assessed: 12/07/23 EMILEE-7 AMB Questionnaire EMILEE-7 Date EMILEE - 7 assessed: 12/27/23 Feeling nervous, anxious, or on edge: 1 = Several days Not being able to stop or control worryin = More than half the days Worrying too much about different things: 2 = More than half the days Trouble relaxin = Several days Being so restless that it is hard to sit still: 2 = More than half the days Becoming easily annoyed or irritable: 3 = Nearly every day Feeling afraid as if something awful might happen: 1 = Several days Total EMILEE-7 score (0-4 normal; 5-9 mild; 10-14 moderate; 15-21 severe): 12 Source: Developed by Drs. Toan Peng, Lala Zeng, Hammad Gipson and colleagues, with an educational mami from [employer]. EMILEE-7 Assessment Billing EMILEE-7 Assessment Tool: EMILEE-7 Assessment 32042 Review of Systems Const Details: Const Denies chills, Denies fatigue, Denies fever(s), Denies headache(s) and Denies weakness ENT Denies dizziness and Denies headache(s) Card Denies chest pain, Denies lightheadedness, Denies dyspnea and Denies other (Palpitations) Resp Denies cough, Denies dyspnea, Denies wheezing and Denies other ( shortness of breath) GI Denies abdominal pain, Denies melena, Denies hematochezia, Denies change in bowel habits, Denies dyspepsia and Denies nausea Denies hematuria and Denies dysuria Musc Denies abnormal gait, Denies myalgias, Denies arthralgias, Denies numbness and Denies tingling Skin/Breast Denies rash, Denies unusual bruising and Denies wounds Neuro Denies abnormal gait, Denies dizziness, Denies headache(s), Denies memory loss, Denies numbness, Denies Sensory deficit (Neuro), Denies tingling and Denies weakness Psych Denies anxiety, Denies depression, Denies memory loss Endo Denies cold intolerance, Denies fatigue, Denies heat intolerance, Denies polydipsia and Denies polyuria Aller/Immun Denies wheezing Physical exam (Primary Care) Tobacco/Smoking Status: Tobacco use Status Tobacco use date assessed 12/07/23 12/07/23 08:41 Patient Tobacco Use Status Former Tobacco user 12/07/23 08:27 Tobacco use type Cigarette 04/16/24 08:41 e-Cigarette/Vaping Use Currently Using 12/07/23 08:41 Depression Screening Interpretation: Positive Depression Screening Follow-up: Existing condition and In treatment Thrive Assessment: Date of Thrive Assessment Date Thrive assessed 12/07/23 12/07/23 08:47 Const Other: General: no acute distress and well developed Nutritional Appearance: well nourished Orientation/consciousness: patient oriented x3 HENMT Head: Yes normocephalic and Yes atraumatic Eyes General: appearance normal, both eyes and all related structures Pupils: Equal, round and reactive pupils present EOM: EOMs intact bilaterally Resp Effort & Inspection: normal respiratory effort Auscultation: clear to auscultation bilaterally Cardio Rate: regular rate Rhythm: regular rhythm Heart sounds: S1 normal heart sound present, S2 normal heart sound present, no gallops, no murmurs and no rubs GI Palpation (GI): No Abdominal aortic bruit present, Soft to palpation, nontender, No hepatosplenomegaly present and No Rebound tenderness present Auscultation: normal bowel sounds General: Yes no CVA tenderness Back/Spine/Pelvis Back: no CVA tenderness Cervical Spine: cervical ROM normal and No Cervical spine tenderness Thoracic/Lumbar Spine: thoraco-lumbar ROM normal, No pain with thoraco-lumbar ROM, No thoracic spinal tenderness and No lumbar spinal tenderness Extrem General: Yes normal to inspection, No edema and No calf tenderness Skin General: warm and dry. Normal skin color. Normal skin turgor Neuro General: patient oriented x3, gait normal and no focal neuro deficit Cranial nerves: Yes Equal, round and reactive pupils present Cognition (Neuro): normal cognition Gait exam (Neuro): Normal gait present Sensory Exam: No Sensory deficit (Neuro) Psych Appearance: grossly normal Affect: normal affect Attitude: cooperative Thought process: Normal thought process present Assessment and Plan Assessment & Plan (1) Anxiety associated with depression: Code(s): F41.8 - Other specified anxiety disorders Plan: Reports controlled anxiety and depression symptoms PHQ-9 and EMILEE-7 scores revealed moderate depression and anxiety Continue to take citalopram 30 mg daily and buspirone 7.5 mg twice daily Routine exercise encouraged Follow-up in 4 weeks or return sooner with worsening or new symptoms Verbalized understanding and agreed with treatment plan (2) Hypothyroidism (acquired): Code(s): E03.9 - Hypothyroidism, unspecified Plan: Recent TSH is normal, 0.62 Continue to take levothyroxine as prescribed Will continue to monitor Verbalized understanding and agreed with treatment plan Coding Level of Care Code Est Pt Level 4 (46157) Complex EM visit Add On G2211 Diagnoses Anxiety associated with depression F41.8 Hypothyroidism (acquired) E03.9 Additional Codes EMILEE-7 Assessment Billing - EMILEE-7 Assessment Tool: EMILEE-7 Assessment 27874 ([id number])
[2023-12-27 09:04] VITALS: BP 124/66; PULSE 66; RESP 14; TEMP 36.3; O2SAT 99; BMI 31.5
== END 2023-12-27 09:27 | disposition home or self-care (01) ==
PROVIDERS: PCP Nurse Practitioner Family; Visit Provider Nurse Practitioner Family
DX: F41.8 Other specified anxiety disorders (principal); E03.9 Hypothyroidism, unspecified
CPT/HCPCS: 99214; G2211

== ENCOUNTER 2024-01-01 09:48 | Outpatient (REF) | payer OTHER, SELFPAY ==
[2024-01-01 10:31] VITALS: PULSE 97; RESP 16; O2SAT 98
--- NOTE | 2024-01-01 11:17 | PFT_ITS ---
Flows: FEV1: 104 % of predicted at 3.43 L FVC: 117 % of predicted at 4.88 L FEV1/FVC: 70 % Bronchodilator response: Present Volumes: Total lung capacity: 106 % of predicted at 6.71 L Residual volume: 118 % of predicted at 2.13 L Slow vital capacity: 100 % of predicted at 4.57 L Expiratory reserve volume: 135 % of predicted at 1.53 L Diffusion capacity: Normal Impression: Reversible mild obstructive ventilatory defect with positive bronchodilator response. MTDD
== END 2024-01-01 09:49 | disposition home or self-care (01) ==
LOC: HO.RESP 09:48
PROVIDERS: PCP Nurse Practitioner Family; Visit Provider Nurse Practitioner Family
DX: J45.909 Unspecified asthma, uncomplicated (principal)
CPT/HCPCS: 94010; 94640; 94727; 94729

== ENCOUNTER → 2024-01-01 11:17 | Outpatient (BNV) | payer OTHER, SELFPAY | PROVIDERS: PCP Nurse Practitioner Family; Visit Provider Internal Medicine Pulmonary Disease | DX: J45.909 Unspecified asthma, uncomplicated (principal) | CPT/HCPCS: 94060; 94727; 94729 ==

== ENCOUNTER 2024-02-09 10:30 | Outpatient (AMB) | payer OTHER, SELFPAY ==
--- NOTE | 2024-02-09 10:33 | A.OFFPC_ITS ---
Vital Signs 02/09/24 10:39 Height 5 ft 6 in Weight 193 lb 2 oz BMI 31.2 BP 118/64 Blood Pressure Location Rt brachial Position Sitting Respiration 14 Pulse 86 Pulse Source Pulse Oximeter Temp 97.7 F Temp Source Temporal Artery Scan Pulse Oximetry (%) 99 Oxygen Delivery Method Room Air Intake Visit Reasons: 1 mos anxiety, depression Multi Sensor Operator Required: No Accompanied by: Self / Same As Patient Allergies latex Allergy (Unknown, Verified 02/09/24 10:58) Unknown Medication List - Last Reconciled 02/09/24 by Sofiya Pichardo, [facility]- albuterol sulfate 90 mcg/actuation 2 puffs inhalation Q4-6H 30 days atorvastatin 10 mg PO DAILY beclomethasone dipropionate 80 mcg/actuation (Qvar RediHaler) 1 inh inhalation BID buspirone 7.5 mg PO BID 30 days cetirizine (Zyrtec) 10 mg PO DAILY PRN citalopram 10 mg PO DAILY 90 days citalopram 20 mg PO DAILY 90 days levothyroxine 150 mcg PO DAILY 30 days zlpenzga-tha-hgfpa-vit K-lycop 400-20-370 mcg (Men's 50 Plus Multivitamin) 1 tab PO DAILY omeprazole 20 mg PO DAILY Tobacco use date assessed: 12/07/23 Dental Screening Dental Screen Date: 12/27/23 HPI HPI Comments History of Present Illness Details MT patient here today for 1 month fu of MDD and EMILEE Previous PCP note reviewed Continue to take citalopram 30 mg daily and buspirone 7.5 mg twice daily Since last visit, he thinks the buspar has made a sig improvement Wonders if effecting sleep Only sleeping 5-6 hours at HS usually sleeps> 7 Now using melatonin 3mg OTC to help, tried last night for the first time unsure if really helped or not Denies SI/HI Is drinking 2-3 x week, which is reduction from previous Using cannabis to help mood Plan Continue medications at current doses. Refill sent in for buspirone. Did discuss potentially moving the 2nd dose of buspirone to earlier in the day to see if this will reduce or eliminate the effects on his sleep. At this time he reports that he feels so well he does not wish to do this and he had rather try the melatonin. Advised that that is okay to do. He can follow up with primary care for any adjustments. Reminded that should anything change or you need us sooner he should come back. Otherwise he can have a routine follow up with his primary care in April. [facility] Medical History Graves' disease Elevated cholesterol Asthma, mild intermittent, well-controlled Chronic GERD Hypothyroidism (acquired) Surgical History History of tonsillectomy Family History Father Hypertension Mother Family history of thyroid problem Family/Other Depression Bipolar 1 disorder Alcohol abuse Other Mental health disorder Social History Household Members: Spouse Both parents involved: No Caregiver staying overnight: No Housing: House Are you a primary health care marketing specialist to a significant other at home: No Do you presently have visiting nurse or other home services: No 75 years or older and lives alone: No Alcohol intake: current Alcohol intake frequency: a few times a month Alcohol type: beer Patient Tobacco Use Status: Former Tobacco user Tobacco use type: Cigarette Years Smoked: 20 e-Cigarette/Vaping Use: Former Use (THC Vape) Second Hand Smoke Exposure: No service: Yes Current occupational status: employed Current occupation: RN Current occupational exposures/hazards: No Cognitive needs: No Hearing needs: No Vision needs: No Questionnaire PHQ-9 Over the last 2 weeks, how often have you been bothered by any of the following problems? 1. Little interest or pleasure in doing things: several days 2. Feeling down, depressed, or hopeless: several days 3. Trouble falling or staying asleep, or sleeping too much: more than half the days 4. Feeling tired or having little energy: more than half the days 5. Poor appetite or overeating: several days 6. Feeling bad about yourself - or that you are a failure or have let yourself or your family down: several days 7. Trouble concentrating on things, such as reading the newspaper or watching television: several days 8. Moving or speaking so slowly that other people could have noticed. Or the opposite - being so fidgety or restless that you have been moving around a lot more than usual: several days 9. Thoughts that you would be better off or of hurting yourself in some way: not at all Total score: 10 Depression Screening Interpretation: Negative Depression Screening Done: Yes 58173 - PHQ-9 Billing: Yes Source: Developed by Drs. Toan Peng, Lala Zeng, Hammad Gipson and colleagues, with an educational mami from [employer]). Thrive Questionnaire Date Thrive assessed: 12/07/23 EMILEE-7 AMB Questionnaire EMILEE-7 Date EMILEE - 7 assessed: 02/09/24 Feeling nervous, anxious, or on edge: 2 = More than half the days Not being able to stop or control worryin = Several days Worrying too much about different things: 2 = More than half the days Trouble relaxin = Several days Being so restless that it is hard to sit still: 2 = More than half the days Becoming easily annoyed or irritable: 3 = Nearly every day Feeling afraid as if something awful might happen: 1 = Several days Total EMILEE-7 score (0-4 normal; 5-9 mild; 10-14 moderate; 15-21 severe): 12 Source: Developed by Drs. Toan Peng, Lala Zeng, Hammad Gipson and colleagues, with an educational mami from [employer] EMILEE-7 Assessment Billing EMILEE-7 Assessment Tool: EMILEE-7 Assessment 14227 Review of Systems Const All systems reviewed & are unremarkable except as noted in HPI and below Physical exam (Primary Care) Vital Signs: Last Vital Signs Temp 97.7 F 02/09/24 10:39 Pulse 86 02/09/24 10:39 Resp 14 02/09/24 10:39 BP 118/64 02/09/24 10:39 Pulse Ox 99 02/09/24 10:39 Oxygen Delivery Method Room Air 02/09/24 10:39 BMI result Body Mass Index 31.2 Tobacco/Smoking Status: Tobacco use Status Tobacco use date assessed 12/07/23 02/09/24 10:45 Patient Tobacco Use Status Former Tobacco user 02/09/24 10:45 Tobacco use type Cigarette 02/09/24 10:45 e-Cigarette/Vaping Use Former Use (THC Vape) 02/09/24 10:45 PHQ-9: PHQ-9 Score PHQ-9: Total score 10 02/09/24 10:45 Depression Screening Interpretation: Negative Thrive Assessment: Date of Thrive Assessment Date Thrive assessed 12/07/23 02/09/24 10:45 Const Other: Awake alert oriented Regular rate and rhythm Lung sounds clear to auscultation bilat Mood affect appropriate Assessment and Plan Assessment & Plan (1) Anxiety associated with depression: Code(s): F41.8 - Other specified anxiety disorders Plan: This note is constructed using voice recognition software. While every effort has been made to ensure accuracy in conveyor attendant, still errors may have been included Sometimes, these errors may affect the content or meaning of the given sentence . Total time spent caring for the patient today was 30 minutes. This includes time spent before the visit reviewing the chart, time spent during the visit, and time spent after the visit on documentation Medications: Refilled buspirone 7.5 mg PO BID 30 days 60 tabs 3RF Patient Instructions: Plan Continue medications at current doses. Refill sent in for buspirone. Did discuss potentially moving the 2nd dose of buspirone to earlier in the day to see if this will reduce or eliminate the effects on his sleep. At this time he reports that he feels so well he does not wish to do this and he had rather try the melatonin. Advised that that is okay to do. He can follow up with primary care for any adjustments. Reminded that should anything change or you need us sooner he should come back. Otherwise he can have a routine follow up with his primary care in April. Coding Level of Care Code Est Pt Level 4 (69948) Diagnoses Anxiety associated with depression F41.8 Additional Codes EMILEE-7 Assessment Billing - EMILEE-7 Assessment Tool: EMILEE-7 Assessment 86511 ([id number])
[2024-02-09 10:39] VITALS: BP 118/64; PULSE 86; RESP 14; TEMP 36.5; O2SAT 99; BMI 31.2
== END 2024-02-09 11:05 | disposition home or self-care (01) ==
PROVIDERS: PCP Nurse Practitioner Family; Visit Provider Nurse Practitioner Family
DX: F41.8 Other specified anxiety disorders (principal)
CPT/HCPCS: 99214

== ENCOUNTER 2024-04-11 10:53 | Outpatient (AMB) | payer OTHER, SELFPAY ==
[2024-04-11 11:01] VITALS: BP 110/62; PULSE 68; O2SAT 97; BMI 32.7
--- NOTE | 2024-04-11 11:01 | MHC.OFFVIS ---
Vital Signs 04/11/24 11:01 Height 5 ft 6 in Weight 202 lb 8 oz BMI 32.7 BP 110/62 Blood Pressure Location Lt brachial Position Sitting Pulse 68 Pulse Source Pulse Oximeter Pulse Oximetry (%) 97 Oxygen Delivery Method Room Air Intake Visit Reasons: mild intermittent asthma Allergies cat dander Allergy (Intermediate, Verified 04/11/24 11:05) Difficulty Breathing latex Allergy (Unknown, Verified 04/11/24 11:04) Unknown HPI HPI mild intermittent asthma: Details: Jay is a pleasant 53 year old male, former smoker with 15 pack year history, quit 15 years ago with underlying asthma. At the last vsit, he was switched from Flovent to Qvar with significant improvement in symptoms, using albuterol infrequently. He does note allergic symptoms have triggered his asthma, especially exposure to cat, using an antihistamine PRN. He denies any visits to urgent care or hospitalizations since the last visit. Today he presents to review PFT and RAST. [facility] Medical History Graves' disease Elevated cholesterol Asthma, mild intermittent, well-controlled Chronic GERD Hypothyroidism (acquired) Surgical History History of tonsillectomy Family History Father Hypertension Mother Family history of thyroid problem Family/Other Depression Bipolar 1 disorder Alcohol abuse Other Mental health disorder Social History Household Members: Spouse Both parents involved: No Caregiver staying overnight: No Housing: House Are you a primary day care aide to a significant other at home: No Do you presently have visiting nurse or other home services: No 75 years or older and lives alone: No Alcohol intake: current Alcohol intake frequency: a few times a month Alcohol type: beer Patient Tobacco Use Status: Former Tobacco user Tobacco use type: Cigarette Years Smoked: 20 e-Cigarette/Vaping Use: Former Use (THC Vape) Second Hand Smoke Exposure: No service: Yes Current occupational status: employed Current occupation: RN Current occupational exposures/hazards: No Cognitive needs: No Hearing needs: No Vision needs: No Review of Systems Const Denies chills, Denies excessive sweating, Denies fever(s), Denies headache(s) and Denies night sweats Eyes Denies dry eyes, Denies irritation and Denies itchy eyes ENT Reports Normal hearing present, Denies headache(s), Denies nasal congestion, Denies nasal discharge, Denies post nasal drip and Denies sore throat Card Denies chest pain, Denies chest pain at rest, Denies chest pain with activity, Denies claudication, Denies leg edema, Denies dyspnea, Denies dyspnea on exertion, Denies orthopnea and Denies paroxysmal nocturnal dyspnea Resp Denies chest congestion, Denies cough, Denies excessive phlegm production, Denies pain on inspiration, Denies pain with cough, Denies dyspnea, Denies dyspnea on exertion, Denies stridor and Denies wheezing Musc Denies myalgias Neuro Reports Normal hearing present and Denies headache(s) Endo Denies excessive sweating Charanjit/Lymph Denies lymphadenopathy Aller/Immun Denies itchy eyes and Denies wheezing Physical Exam Vital Signs: Last Vital Signs Pulse 68 04/11/24 11:01 BP 110/62 04/11/24 11:01 Pulse Ox 97 04/11/24 11:01 Oxygen Delivery Method Room Air 04/11/24 11:01 BMI result Body Mass Index 32.7 Const General: cooperative, healthy appearing, comfortable, no acute distress, well developed and alert Orientation/consciousness: patient oriented x3 Limitations: no limitations HEENT Head: Yes normal to inspection, Yes normocephalic and Yes atraumatic Ears: hearing grossly normal bilaterally and external ears normal Eyes General: appearance normal, both eyes and all related structures Eyelids: Yes eyelids normal Sclerae: sclerae normal EOM: EOMs intact bilaterally Neck Neck: Yes normal visual inspection and Yes no lymphadenopathy Lymphatic: no lymphadenopathy noted Chest Chest palpation & inspection: normal inspection of the chest Resp Effort & Inspection: normal respiratory effort, able to speak in complete sentences, no audible wheezes, no cough, no stridor, not tachypneic, no tripod positioning and no use of accessory muscles Auscultation: clear to auscultation bilaterally Cardio Jugular venous distension: no JVD Rate: regular rate Rhythm: regular rhythm Skin Other: warm, dry General skin exam: no rashes or lesions noted Neuro General: patient oriented x3 Cranial nerves: Yes Normal hearing present Cognition (Neuro): normal cognition Gait exam (Neuro): Normal gait present Extrem General: Yes normal to inspection, Yes capillary refill normal, Yes no clubbing, cyanosis or edema and Yes no pedal edema Psych Appearance: grossly normal and well kempt Speech and movement: Normal speech and movement present and Clear speech present Affect: normal affect Attitude: cooperative Thought process: Normal thought process present Thought content: Normal thought content present Insight: Good insight present (Psych) Judgement: Good judgement present (Psych) Assessment & Plan Assessment & Plan (1) Asthma: Code(s): J45.909 - Unspecified asthma, uncomplicated Category: Medical (2) Environmental allergies: Code(s): Z91.09 - Other allergy status, other than to drugs and biological substances Category: Medical Plan Reviewed PFT which revealed reversible mild obstructive ventilatory defect with positive bronchodilator response, suggestive of asthma. Symptoms have been well moderately controlled on current regimen, advised to continue. Will add singulair as patient with allergic triggers. Discussed possible adverse reactions. RAST + cat and dog. All questions were answered and patient is in agreement of plan. Will follow up in 3 months or sooner if needed. Medications: New montelukast (Singulair) 10 mg PO BEDTIME 30 tabs 4RF Coding Level of Care Code Est Pt Level 4 (70826) Diagnoses Asthma J45.909 Environmental allergies Z91.09
== END 2024-04-11 11:25 | disposition home or self-care (01) ==
PROVIDERS: PCP Nurse Practitioner Family; Visit Provider Nurse Practitioner Family
DX: J45.909 Unspecified asthma, uncomplicated (principal); Z91.09 Other allergy status, other than to drugs and biological substances
CPT/HCPCS: 99214

== ENCOUNTER → 2024-04-11 10:53 | Outpatient (BNVA) | payer OTHER, SELFPAY | PROVIDERS: PCP Nurse Practitioner Family; Visit Provider Nurse Practitioner Family ==

== ENCOUNTER 2024-04-28 10:40 | Outpatient (AMB) | payer OTHER, SELFPAY ==
--- NOTE | 2024-04-28 10:44 | A.OFFPC_ITS ---
Vital Signs 04/28/24 10:51 Height 5 ft 6 in Weight 195 lb 8 oz BMI 31.6 BP 128/78 Blood Pressure Location Rt brachial Position Sitting Respiration 16 Pulse 73 Pulse Source Pulse Oximeter Temp 98.1 F Temp Source Oral Pulse Oximetry (%) 96 Oxygen Delivery Method Room Air Intake Visit Reasons: 1 mos anxiety, depression Intake Note: patient here to follow up on anxiety and depression. 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 Allergies cat dander Allergy (Intermediate, Verified 04/28/24 10:58) Difficulty Breathing latex Allergy (Unknown, Verified 04/28/24 10:58) Unknown Medication List - Last Reconciled 04/28/24 by Tony Salazar CNP albuterol sulfate 90 mcg/actuation 2 puffs inhalation Q4-6H 30 days atorvastatin 10 mg PO DAILY beclomethasone dipropionate 80 mcg/actuation (Qvar RediHaler) 1 inh inhalation BID buspirone 7.5 mg PO BID 30 days cetirizine (Zyrtec) 10 mg PO DAILY PRN citalopram 10 mg PO DAILY 90 days citalopram 20 mg PO DAILY 90 days levothyroxine 150 mcg PO DAILY 30 days montelukast (Singulair) 10 mg PO BEDTIME mzibemtw-kuj-ahker-vit K-lycop 400-20-370 mcg (Men's 50 Plus Multivitamin) 1 tab PO DAILY omeprazole 20 mg PO DAILY Tobacco use date assessed: 04/28/24 Dental Screening Dental Screen Date: 04/28/24 Did you have a dental visit in the last 12 months?: Yes Did you have a dental problem in the last 6 months where you did not have access to dental care?: No Was dental information given to patient?: Patient has dentist HPI HPI Comments History of Present Illness Details 54-year-old male presents for anxiety, d epression, and hypothyroidism follow-up He admits to taking his medications as prescribed without adverse reactions He reports significant anxiety and depression symptoms on current treatment regimen He continues to feel anxious and depressed but his symptoms are more better controlled than in the past. He has difficulty falling asleep but able to maintain his sleep. He reports work related stressors. He sleeps an average of 5-6 hours nightly. He requests referral for psychotherapy He offers no complaints and denies acute symptoms at this time [facility] Medical History Graves' disease Elevated cholesterol Asthma, mild intermittent, well-controlled Chronic GERD Hypothyroidism (acquired) Surgical History History of tonsillectomy Family History Father Hypertension Mother Family history of thyroid problem Family/Other Depression Bipolar 1 disorder Alcohol abuse Other Mental health disorder Social History Household Members: Spouse Both parents involved: No Caregiver staying overnight: No Housing: House Are you a primary medicare sales executive to a significant other at home: No Do you presently have visiting nurse or other home services: No 75 years or older and lives alone: No Alcohol intake: current Alcohol intake frequency: a few times a month Alcohol type: beer Patient Tobacco Use Status: Former Tobacco user Tobacco use type: Cigarette Years Smoked: 20 e-Cigarette/Vaping Use: Former Use (THC Vape) Second Hand Smoke Exposure: No service: Yes Current occupational status: employed Current occupation: RN Current occupational exposures/hazards: No Cognitive needs: No Hearing needs: No Vision needs: No Questionnaire PHQ-9 Over the last 2 weeks, how often have you been bothered by any of the following problems? 1. Little interest or pleasure in doing things: several days 2. Feeling down, depressed, or hopeless: not at all 3. Trouble falling or staying asleep, or sleeping too much: several days 4. Feeling tired or having little energy: nearly every day 5. Poor appetite or overeating: several days 6. Feeling bad about yourself - or that you are a failure or have let yourself or your family down: several days 7. Trouble concentrating on things, such as reading the newspaper or watching television: several days 8. Moving or speaking so slowly that other people could have noticed. Or the opposite - being so fidgety or restless that you have been moving around a lot more than usual: several days 9. 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 Toan Peng, Lala Zeng, Hammad Gipson and colleagues, with an educational mami from [employer]. Thrive Questionnaire Date Thrive assessed: 12/07/23 EMILEE-7 AMB Questionnaire EMILEE-7 Date EMILEE - 7 assessed: 04/28/24 Feeling nervous, anxious, or on edge: 2 = More than half the days Not being able to stop or control worryin = Nearly every day Worrying too much about different things: 1 = Several days Trouble relaxin = More than half the days Being so restless that it is hard to sit still: 1 = Several days Becoming easily annoyed or irritable: 3 = Nearly every day Feeling afraid as if something awful might happen: 2 = More than half the days Total EMILEE-7 score (0-4 normal; 5-9 mild; 10-14 moderate; 15-21 severe): 14 Source: Developed by Drs. Toan Peng, Lala Zeng, Hammad Gipson and colleagues, with an educational mami from [employer]. EMILEE-7 Assessment Billing EMILEE-7 Assessment Tool: EMILEE-7 Assessment 10042 ACT Questionnaire In the past 4 weeks, how much of the time did your asthma keep you from getting as much done at work, school or at home?: All of the time During the past 4 weeks, how often have you had shortness of breath?: 1-2 times a week During the past 4 weeks, how often did your asthma symptoms wake you up at night or earlier than usual in the morning?: Not at all During the past 4 weeks, how often have you had to use your rescue inhaler or nebulizer medication?: 1-2 times a week How would you rate your asthma control during the past 4 weeks?: Well controlled Score: 16 Review of Systems Const Details: Const Denies chills, Denies fatigue, Denies fever(s), Denies headache(s) and Denies weakness ENT Denies dizziness and Denies headache(s) Card Denies chest pain, Denies lightheadedness, Denies dyspnea and Denies other (Palpitations) Resp Denies cough, Denies dyspnea, Denies wheezing and Denies other ( shortness of breath) GI Denies abdominal pain, Denies melena, Denies hematochezia, Denies change in bowel habits, Denies dyspepsia and Denies nausea Denies hematuria and Denies dysuria Musc Denies abnormal gait, Denies myalgias, Denies arthralgias, Denies numbness and Denies tingling Skin/Breast Denies rash, Denies unusual bruising and Denies wounds Neuro Denies abnormal gait, Denies dizziness, Denies headache(s), Denies memory loss, Denies numbness, Denies Sensory deficit (Neuro), Denies tingling and Denies weakness Psych Reports anxiety, Reports depression, Denies memory loss Endo Denies cold intolerance, Denies fatigue, Denies heat intolerance, Denies polydipsia and Denies polyuria Aller/Immun Denies wheezing Physical exam (Primary Care) Vital Signs: Last Vital Signs Temp 98.1 F 04/28/24 10:51 Pulse 73 04/28/24 10:51 Resp 16 04/28/24 10:51 BP 128/78 04/28/24 10:51 Pulse Ox 96 04/28/24 10:51 Oxygen Delivery Method Room Air 04/28/24 10:51 BMI result Body Mass Index 31.6 Tobacco/Smoking Status: Tobacco use Status Tobacco use date assessed 04/28/24 04/28/24 10:52 Patient Tobacco Use Status Former Tobacco user 04/28/24 10:52 Tobacco use type Cigarette 04/28/24 10:52 e-Cigarette/Vaping Use Former Use (THC Vape) 04/28/24 10:52 PHQ-9: PHQ-9 Score PHQ-9: Total score 9 04/28/24 10:52 Depression Screening Interpretation: Positive Depression Screening Follow-up: Existing condition, In treatment and Community Mental Health Worker F/U Thrive Assessment: Date of Thrive Assessment Date Thrive assessed 12/07/23 04/28/24 10:52 Const Other: General: no acute distress and well developed Nutritional Appearance: well nourished Orientation/consciousness: patient oriented x3 HENMT Head: Yes normocephalic and Yes atraumatic Eyes General: appearance normal, both eyes and all related structures Pupils: Equal, round and reactive pupils present EOM: EOMs intact bilaterally Resp Effort & Inspection: normal respiratory effort Auscultation: clear to auscultation bilaterally Cardio Rate: regular rate Rhythm: regular rhythm Heart sounds: S1 normal heart sound present, S2 normal heart sound present, no gallops, no murmurs and no rubs GI Palpation (GI): No Abdominal aortic bruit present, Soft to palpation, nontender, No hepatosplenomegaly present and No Rebound tenderness present Auscultation: normal bowel sounds General: Yes no CVA tenderness Back/Spine/Pelvis Back: no CVA tenderness Cervical Spine: cervical ROM normal and No Cervical spine tenderness Thoracic/Lumbar Spine: thoraco-lumbar ROM normal, No pain with thoraco-lumbar ROM, No thoracic spinal tenderness and No lumbar spinal tenderness Extrem General: Yes normal to inspection, No edema and No calf tenderness Skin General: warm and dry. Normal skin color. Normal skin turgor Neuro General: patient oriented x3, gait normal and no focal neuro deficit Cranial nerves: Yes Equal, round and reactive pupils present Cognition (Neuro): normal cognition Gait exam (Neuro): Normal gait present Sensory Exam: No Sensory deficit (Neuro) Psych Appearance: grossly normal Affect: normal affect Attitude: cooperative Thought process: Normal thought process present Assessment and Plan Assessment & Plan (1) Anxiety and depression: Code(s): F41.9 - Anxiety disorder, unspecified; F32.A - Depression, unspecified Plan: Continues to experience anxiety and depressive symptoms. However, his symptoms have improved compared to the past. Sleep has been an issue; he has trouble falling asleep but able to maintain sleep. He also experience significant amount of stress at work PHQ-9 and EMILEE-7 scores revealed mild depression and moderate anxiety respectively Will increase buspirone to 10 mg twice daily. Advised to take as prescribed Continue to take citalopram 30 mg daily Will start trazodone 25 mg daily to target sleep Routine exercise encouraged He met with the [facility] who will refer to a therapist lipid panel and TSH/T4 blood work done before h Advised to follow-up in 1 month for anxiety, depression, HLD, and hypothyroidism or sooner with worsening or new symptoms Verbalized understanding and agreed with the treatment plan (2) Sleep disturbances: Code(s): G47.9 - Sleep disorder, unspecified Plan: Plan as above Orders: Orders TSH reflex Free T4 Today E03.9 - Hypothyroidism, unspecified Lipid Panel Today E78.00 - Pure hypercholesterolemia, unspecified Medications: New buspirone 10 mg PO BID 30 days 60 tabs 3RF trazodone 25 mg (1/2 x 50 mg) PO BEDTIME 30 days 15 tabs 2RF Refilled levothyroxine 150 mcg PO DAILY 30 days 30 tabs 3RF omeprazole 20 mg PO DAILY 90 caps 1RF K21.9 - Gastro-esophageal reflux disease without esophagitis Discontinued buspirone Discontinued Reason: Doctor's Order 7.5 mg PO BID 30 days 60 tabs 3RF Coding Level of Care Code Est Pt Level 4 (07696) Complex EM visit Add On G2211 Diagnoses Anxiety and depression F41.9; F32.A Sleep disturbances G47.9 Additional Codes EMILEE-7 Assessment Billing - EMILEE-7 Assessment Tool: EMILEE-7 Assessment 33803 ([id number])
[2024-04-28 10:51] VITALS: BP 128/78; PULSE 73; RESP 16; TEMP 36.7; O2SAT 96; BMI 31.6
== END 2024-04-28 11:27 | disposition home or self-care (01) ==
PROVIDERS: PCP Nurse Practitioner Family; Visit Provider Nurse Practitioner Family
DX: F41.9 Anxiety disorder, unspecified (principal); F32.A Depression, unspecified; G47.9 Sleep disorder, unspecified
CPT/HCPCS: 96127; 99214

== ENCOUNTER 2024-06-02 10:43 | Outpatient (REF) | payer OTHER, SELFPAY ==
[2024-06-02 14:27] LABS: Cholesterol 192 mg/dL (<200); HDL Cholesterol 46 mg/dL (>40); LDL Cholesterol Calculated 120 mg/dL (<100); Triglycerides 130 mg/dL (<150)
[2024-06-02 14:45] LABS: TSH reflex Free T4 0.19 uIU/mL (0.32-4.0)
[2024-06-02 15:48] LABS: Free T4 (Free Thyroxine) 1.53 ng/dL (0.71-1.85)
== END 2024-06-02 10:44 | disposition home or self-care (01) ==
LOC: HO.WFDLDS 10:43
PROVIDERS: Referring Provider Nurse Practitioner Family; Visit Provider Nurse Practitioner Family
DX: F41.8 Other specified anxiety disorders (principal); E78.00 Pure hypercholesterolemia, unspecified; E03.9 Hypothyroidism, unspecified; Z91.09 Other allergy status, other than to drugs and biological substances
CPT/HCPCS: 36415; 80061; 84439; 84443; 96127

== ENCOUNTER 2024-06-02 10:49 | Outpatient (AMB) | payer OTHER, SELFPAY ==
--- NOTE | 2024-06-02 10:51 | A.OFFPC_ITS ---
Vital Signs 06/02/24 10:57 Height 5 ft 6 in Weight 197 lb 6 oz BMI 31.9 BP 110/70 Blood Pressure Location Rt brachial Position Sitting Respiration 16 Pulse 98 Pulse Source Pulse Oximeter Temp 98.2 F Temp Source Oral Pulse Oximetry (%) 96 Oxygen Delivery Method Room Air Intake Visit Reasons: hypothyroidism Intake Note: patient here for hypothyroidism. 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 Allergies cat dander Allergy (Intermediate, Verified 06/02/24 11:12) Difficulty Breathing latex Allergy (Unknown, Verified 06/02/24 11:12) Unknown Medication List - Last Reconciled 06/02/24 by Tony Salazar CNP albuterol sulfate 90 mcg/actuation 2 puffs inhalation Q4-6H 30 days atorvastatin 10 mg PO DAILY beclomethasone dipropionate 80 mcg/actuation (Qvar RediHaler) 1 inh inhalation BID buspirone 10 mg PO BID 30 days cetirizine (Zyrtec) 10 mg PO DAILY PRN citalopram 10 mg PO DAILY 90 days citalopram 20 mg PO DAILY 90 days levothyroxine 150 mcg PO DAILY 30 days montelukast (Singulair) 10 mg PO BEDTIME rphrmlzc-bdn-qsrly-vit K-lycop 400-20-370 mcg (Men's 50 Plus Multivitamin) 1 tab PO DAILY omeprazole 20 mg PO DAILY trazodone 25 mg (1/2 x 50 mg) PO BEDTIME 30 days Tobacco use date assessed: 06/02/24 Dental Screening Dental Screen Date: 06/02/24 Did you have a dental visit in the last 12 months?: Yes Did you have a dental problem in the last 6 months where you did not have access to dental care?: No Was dental information given to patient?: Patient has dentist HPI HPI Comments History of Present Illness Details 54-year-old male presents for anxiety, d epression, HLD, and hypothyroidism He admits to taking his medications as prescribed without adverse reactions He offers no complaints and denies acute symptoms at this time He notes that his mood is better overall. He is sleeping better since he start taking trazdone. He takes this medication as needed because it makes him sleep more than he desires. His sleep also improved after he recently stopped using edible gummies He walks/hikes routinely He has a appointment for psychotherapy later this month He did not get lipid panel and TSH blood work done as planned before this visit but did so this morning [facility] Medical History Graves' disease Elevated cholesterol Asthma, mild intermittent, well-controlled Chronic GERD Hypothyroidism (acquired) Surgical History History of tonsillectomy Family History Father Hypertension Mother Family history of thyroid problem Family/Other Depression Bipolar 1 disorder Alcohol abuse Other Mental health disorder Social History Household Members: Spouse Both parents involved: No Caregiver staying overnight: No Housing: House Are you a primary gericare aide to a significant other at home: No Do you presently have visiting nurse or other home services: No 75 years or older and lives alone: No Alcohol intake: current Alcohol intake frequency: a few times a month Alcohol type: beer Patient Tobacco Use Status: Former Tobacco user Tobacco use type: Cigarette Years Smoked: 20 e-Cigarette/Vaping Use: Former Use (THC Vape) Second Hand Smoke Exposure: No service: Yes Current occupational status: employed Current occupation: RN Current occupational exposures/hazards: No Cognitive needs: No Hearing needs: No Vision needs: No Questionnaire PHQ-9 Over the last 2 weeks, how often have you been bothered by any of the following problems? 1. Little interest or pleasure in doing things: several days 2. Feeling down, depressed, or hopeless: several days 3. Trouble falling or staying asleep, or sleeping too much: several days 4. Feeling tired or having little energy: several days 5. Poor appetite or overeating: several days 6. Feeling bad about yourself - or that you are a failure or have let yourself or your family down: several days 7. Trouble concentrating on things, such as reading the newspaper or watching television: several days 8. Moving or speaking so slowly that other people could have noticed. Or the opposite - being so fidgety or restless that you have been moving around a lot more than usual: more than half the days 9. Thoughts that you would be better off or of hurting yourself in some way: not at all Total score: 9 Depression Screening Interpretation: Positive Depression Screening Follow-up: Ex isting condition and In treatment Depression Screening Done: Yes 86656 - PHQ-9 Billing: Yes Source: Developed by Drs. Toan Peng, Lala Zeng, Hammad Gipson and colleagues, with an educational mami from [employer]. Thrive Questionnaire Date Thrive assessed: 12/07/23 EMILEE-7 AMB Questionnaire EMILEE-7 Date EMILEE - 7 assessed: 06/02/24 Feeling nervous, anxious, or on edge: 1 = Several days Not being able to stop or control worryin = More than half the days Worrying too much about different things: 2 = More than half the days Trouble relaxin = More than half the days Being so restless that it is hard to sit still: 1 = Several days Becoming easily annoyed or irritable: 2 = More than half the days Feeling afraid as if something awful might happen: 1 = Several days Total EMILEE-7 score (0-4 normal; 5-9 mild; 10-14 moderate; 15-21 severe): 11 Source: Developed by Drs. Toan Peng, Lala Zeng, Hammad Gipson and colleagues, with an educational mami from [employer]. EMILEE-7 Assessment Billing EMILEE-7 Assessment Tool: EMILEE-7 Assessment 51103 Review of Systems Const Details: Const Denies chills, Denies fatigue, Denies fever(s), Denies headache(s) and Denies weakness ENT Denies dizziness and Denies headache(s) Card Denies chest pain, Denies lightheadedness, Denies dyspnea and Denies other (Palpitations) Resp Denies cough, Denies dyspnea, Denies wheezing and Denies other ( shortness of breath) GI Denies abdominal pain, Denies melena, Denies hematochezia, Denies change in bowel habits, Denies dyspepsia and Denies nausea Denies hematuria and Denies dysuria Musc Denies abnormal gait, Denies myalgias, Denies arthralgias, Denies numbness and Denies tingling Skin/Breast Denies rash, Denies unusual bruising and Denies wounds Neuro Denies abnormal gait, Denies dizziness, Denies headache(s), Denies memory loss, Denies numbness, Denies Sensory deficit (Neuro), Denies tingling and Denies weakness Psych Denies anxiety, Denies depression, Denies memory loss Endo Denies cold intolerance, Denies fatigue, Denies heat intolerance, Denies polydipsia and Denies polyuria Aller/Immun Denies wheezing Physical exam (Primary Care) Vital Signs: Last Vital Signs Temp 98.2 F 06/02/24 10:57 Pulse 98 06/02/24 10:57 Resp 16 06/02/24 10:57 BP 110/70 06/02/24 10:57 Pulse Ox 96 06/02/24 10:57 Oxygen Delivery Method Room Air 06/02/24 10:57 BMI result Body Mass Index 31.9 Tobacco/Smoking Status: Tobacco use Status Tobacco use date assessed 06/02/24 06/02/24 10:54 Patient Tobacco Use Status Former Tobacco user 06/02/24 10:53 Tobacco use type Cigarette 06/02/24 10:53 e-Cigarette/Vaping Use Former Use (THC Vape) 06/02/24 10:53 Depression Screening Interpretation: Positive Depression Screening Follow-up: Existing condition and In treatment Thrive Assessment: Date of Thrive Assessment Date Thrive assessed 12/07/23 06/02/24 10:53 Const Other: General: no acute distress and well developed Nutritional Appearance: well nourished Orientation/consciousness: patient oriented x3 HENMT Head: Yes normocephalic and Yes atraumatic Eyes General: appearance normal, both eyes and all related structures Pupils: Equal, round and reactive pupils present EOM: EOMs intact bilaterally Resp Effort & Inspection: normal respiratory effort Auscultation: clear to auscultation bilaterally Cardio Rate: regular rate Rhythm: regular rhythm Heart sounds: S1 normal heart sound present, S2 normal heart sound present, no gallops, no murmurs and no rubs GI Palpation (GI): No Abdominal aortic bruit present, Soft to palpation, nontender, No hepatosplenomegaly present and No Rebound tenderness present Auscultation: normal bowel sounds General: Yes no CVA tenderness Extrem General: Yes normal to inspection, No edema and No calf tenderness Skin General: warm and dry. Normal skin color. Normal skin turgor Nails: normal Neuro General: patient oriented x3, gait normal and no focal neuro deficit Cranial nerves: Yes Equal, round and reactive pupils present Cognition (Neuro): normal cognition Gait exam (Neuro): Normal gait present Sensory Exam: No Sensory deficit (Neuro) Psych Appearance: grossly normal Affect: normal affect Attitude: cooperative Thought process: Normal thought process present Coding Level of Care Code Est Pt Level 3 (18641) Diagnoses Anxiety associated with depression F41.8 Elevated cholesterol E78.00 Hypothyroidism (acquired) E03.9 Additional Codes EMILEE-7 Assessment Billing - EMILEE-7 Assessment Tool: EMILEE-7 Assessment 23091 ([id number]) Assessment & Plan Assessment & Plan (1) Anxiety associated with depression: Code(s): F41.8 - Other specified anxiety disorders Category: Medical Plan: Reports improved anxiety and depressive symptoms. Sleep is also improved, however, he has been sleeping more than desired and has been taking trazodone as needed PHQ-9 and EMILEE-7 scores revealed mild depression and moderate anxiety respectively Continue current treatment regimen. May take trazodone as needed or break the medication in half to equal 12.5 mg every night Routine exercise encouraged Follow-up for psychotherapy as planned Return in 2 months or sooner with worsening or new symptoms Verbalized understanding and agreed with treatment plan (2) Elevated cholesterol: Code(s): E78.00 - Pure hypercholesterolemia, unspecified Category: Medical Plan: He had blood work done this morning Will review results and make changes as needed Verbalized understanding and agreed with the plan (3) Hypothyroidism (acquired): Code(s): E03.9 - Hypothyroidism, unspecified Category: Medical Plan: Plan as above
[2024-06-02 10:57] VITALS: BP 110/70; PULSE 98; RESP 16; TEMP 36.8; O2SAT 96; BMI 31.9
== END 2024-06-02 11:25 | disposition home or self-care (01) ==
PROVIDERS: PCP Nurse Practitioner Family; Visit Provider Nurse Practitioner Family
DX: F41.8 Other specified anxiety disorders (principal); E78.00 Pure hypercholesterolemia, unspecified; E03.9 Hypothyroidism, unspecified

== ENCOUNTER 2024-07-18 09:58 | Outpatient (AMB) | payer OTHER, SELFPAY ==
--- NOTE | 2024-07-18 10:01 | A.OFFVIS_ITS ---
Vital Signs 07/18/24 10:02 Height 5 ft 6 in Weight 198 lb 6 oz BMI 32.0 BP 110/58 L Blood Pressure Location Lt brachial Position Sitting Pulse 74 Pulse Source Pulse Oximeter Pulse Oximetry (%) 97 Oxygen Delivery Method Room Air Intake Visit Reasons: mild intermittent asthma Allergies cat dander Allergy (Intermediate, Verified 07/18/24 10:04) Difficulty Breathing latex Allergy (Unknown, Verified 07/18/24 10:04) Unknown HPI HPI mild intermittent asthma: Details: Jay is a pleasant 53 year old male, former smoker with 15 pack year history, quit 15 years ago with underlying asthma. He has trialed pulmicort and Qvar with suboptimal effect. He continues with intermittent respiratory symptoms, currently using singulair and albuterol MDI with moderate effect. He is also using zyrtec with suboptimal effect and rebound symptoms, currently tapering off. He reports his recently contracted COVID however he did not experience any respiratory symptoms. He denies any visits to urgent care or hospitalizations related to respiratory distress since the last visit. [facility] Medical History Graves' disease Elevated cholesterol Asthma, mild intermittent, well-controlled Chronic GERD Hypothyroidism (acquired) Surgical History History of tonsillectomy Family History Father Hypertension Mother Family history of thyroid problem Family/Other Depression Bipolar 1 disorder Alcohol abuse Other Mental health disorder Social History Household Members: Spouse Both parents involved: No Caregiver staying overnight: No Housing: House Are you a primary director of patient care to a significant other at home: No Do you presently have visiting nurse or other home services: No 75 years or older and lives alone: No Alcohol intake: current Alcohol intake frequency: a few times a month Alcohol type: beer Patient Tobacco Use Status: Former Tobacco user Tobacco use type: Cigarette Years Smoked: 20 e-Cigarette/Vaping Use: Former Use (THC Vape) Second Hand Smoke Exposure: No service: Yes Current occupational status: employed Current occupation: RN Current occupational exposures/hazards: No Cognitive needs: No Hearing needs: No Vision needs: No Review of Systems Const Denies chills, Denies excessive sweating, Denies fever(s), Denies headache(s) and Denies night sweats Eyes Denies dry eyes, Denies irritation and Denies itchy eyes ENT Reports Normal hearing present, Denies headache(s), Denies nasal congestion, Denies nasal discharge, Denies post nasal drip and Denies sore throat Card Denies chest pain, Denies chest pain at rest, Denies chest pain with activity, Denies claudication, Denies leg edema, Denies orthopnea and Denies paroxysmal nocturnal dyspnea Resp Denies chest congestion, Denies excessive phlegm production, Denies pain on inspiration, Denies pain with cough, Denies stridor and Denies wheezing Musc Denies myalgias Neuro Reports Normal hearing present and Denies headache(s) Endo Denies excessive sweating Charanjit/Lymph Denies lymphadenopathy Aller/Immun Denies itchy eyes and Denies wheezing Physical Exam Vital Signs: Last Vital Signs Pulse 74 07/18/24 10:02 BP 110/58 L 07/18/24 10:02 Pulse Ox 97 07/18/24 10:02 Oxygen Delivery Method Room Air 07/18/24 10:02 BMI result Body Mass Index 32.0 Const General: cooperative, healthy appearing, comfortable, no acute distress, well developed and alert Orientation/consciousness: patient oriented x3 Limitations: no limitations HEENT Head: Yes normal to inspection, Yes normocephalic and Yes atraumatic Ears: hearing grossly normal bilaterally and external ears normal Eyes General: appearance normal, both eyes and all related structures Eyelids: Yes eyelids normal Sclerae: sclerae normal EOM: EOMs intact bilaterally Neck Neck: Yes normal visual inspection and Yes no lymphadenopathy Lymphatic: no lymphadenopathy noted Chest Chest palpation & inspection: normal inspection of the chest Resp Effort & Inspection: normal respiratory effort, able to speak in complete sentences, no audible wheezes, no cough, no stridor, not tachypneic, no tripod positioning and no use of accessory muscles Auscultation: clear to auscultation bilaterally Cardio Jugular venous distension: no JVD Rate: regular rate Rhythm: regular rhythm Skin Other: warm, dry General skin exam: no rashes or lesions noted Neuro General: patient oriented x3 Cranial nerves: Yes Normal hearing present Cognition (Neuro): normal cognition Gait exam (Neuro): Normal gait present Extrem General: Yes normal to inspection, Yes capillary refill normal, Yes no clubbing, cyanosis or edema and Yes no pedal edema Psych Appearance: grossly normal and well kempt Speech and movement: Normal speech and movement present and Clear speech present Affect: normal affect Attitude: cooperative Thought process: Normal thought process present Thought content: Normal thought content present Insight: Good insight present (Psych) Judgement: Good judgement present (Psych) Assessment & Plan Assessment & Plan (1) Asthma: Code(s): J45.909 - Unspecified asthma, uncomplicated Category: Medical (2) Environmental allergies: Code(s): Z91.09 - Other allergy status, other than to drugs and biological substances Category: Medical Plan Will switch ICS to Wixela. Patient aware to call if there are any issues obtaining. Advised to continue singulair and albuterol MDI. All questions were answered and patient is in agreement of plan. Will follow up in 6-8 weeks or sooner if needed. Medications: New fluticasone propion-salmeterol 100-50 mcg/dose (Wixela Inhub) 1 inh inhalation BID 60 ea 6RF Refilled montelukast (Singulair) 10 mg PO BEDTIME 30 tabs 4RF Coding Level of Care Code Est Pt Level 4 (30346) Diagnoses Asthma J45.909 Environmental allergies Z91.09
[2024-07-18 10:02] VITALS: BP 110/58; PULSE 74; O2SAT 97; BMI 32.0
== END 2024-07-18 10:24 | disposition home or self-care (01) ==
PROVIDERS: PCP Nurse Practitioner Family; Visit Provider Nurse Practitioner Family
DX: J45.909 Unspecified asthma, uncomplicated (principal); Z91.09 Other allergy status, other than to drugs and biological substances
CPT/HCPCS: 99214

== ENCOUNTER → 2024-07-18 09:58 | Outpatient (BNVA) | payer OTHER, SELFPAY | PROVIDERS: PCP Nurse Practitioner Family; Visit Provider Nurse Practitioner Family ==

== ENCOUNTER 2024-07-26 11:48 | Outpatient (REF) | payer OTHER, SELFPAY ==
[2024-07-26 14:59] LABS: TSH reflex Free T4 0.34 uIU/mL (0.32-4.0)
--- OUTSIDE RECORDS SUMMARY | 2024-08-01 18:19 | XMS_ITS | Patient Health Record ---
Author Organization [facility] Address [address] [place] [id number] Care Team Providers Care Laborer Brush Clearing Name Role Phone SOUMYA LOYOLA, TANYA Primary Care Provider Mauricio Stringer Jr Unavailable ALLERGIES Allergen (clinical drug ingredient) Drug/Non Drug Allergy documented on EMR Reaction Allergy Type Onset Date Status Latex latex (uncoded) local reaction/rash Allergy Active REASON FOR REFERRAL No Information MEDICATIONS Medication SIG (Take, Route, Frequency, Duration) Notes Start Date End Date Status albuterol as directed Active MiraLax (colon prep) 8.3 ounce ((238) grams mixed with Gatorade or Crystal Light orally begin at 5:00 p.m. the day before the procedure for 1 day 08/09/2020 Active Qvar 80 MCG/ACT 1 puff Inhalation tw ice a day Active Multivitamin & Mineral Active Vitamin D 50 MCG (1999 UT) 1 tablet Oral ly Once a day for 30 day(s) Active Levothyroxine Sodium 175 MCG TAKE 1 TABL ET BY MOUTH EVERY DAY Oral Once a day with 1/2 tab on sundays Active Fish Oil 1000 MG 1 capsule Orally Onc e a day for 30 day(s) Active Fiber 600 MG as directed Orally Active Atorvastatin Calcium 10 MG TAKE 1 TABLET BY MOUTH EVERY DAY Oral for 90 Active Omeprazole 20 MG TAKE 1 CAPSULE BY MO UTH EVERY DAY Oral for 90 Active IMMUNIZATIONS Vaccine Route Administration Date Status Comme nts Influenza Unknown 05/23/2020 Administered SOCIAL HISTORY Tobacco Use: Social History Observation Description Date Details (start date - stop date) Former Smoker NA - NA Sex Assigned At : Social History Observation Description Sex Assigned At Unknown Tobacco Use/Smoking Question Answer Notes Patient is a former smoker When did you stop smoking? 13 years ago Alcohol Screen Question Answer Notes Did you have a drink contain ing alcohol in the past year? Yes How often did you have a dri nk containing alcohol in the past year? 2 to 4 times a month (2 points) How many drinks did you have on a typical day when you were drinking in the past year? 1 or 2 drinks (0 point) Points 2 Interpretation Negative PROBLEMS Problem Type ICD Code Onset Dates Problem Status W/U Status Risk SNOMED Code Notes Problem GERD without esophagitis (K21.9) Active confirmed 564112684 Problem Colon cancer screening (Z12.11) Active confirmed 983964406 PLAN OF TREATMENT Future Test Test Name Order Date UPPER GI ENDOSCOPY 08/09/2020 COLONOSCOPY 08/09/2020 Insurance Providers Payer Name Payer Address Payer Phone Subscriber Number Group Number Insured Name Patient Relationship to Insured Coverage Start Date Coverage End Date [facility] [address] [facility] [place] [phone] [id number] RONEY CHOI Self - patient is the insured MEDICAL (GENERAL) HISTORY Medical History History ICD Code asthma Graves' disease elevated cholesterol GERD Surgical History Surgery Date(Month/Year) tonsillectomy CLANCY ablation
== END 2024-07-26 11:49 | disposition home or self-care (01) ==
LOC: HO.WFDLDS 11:48
PROVIDERS: Visit Provider Nurse Practitioner Family
DX: E03.9 Hypothyroidism, unspecified (principal)
CPT/HCPCS: 36415; 84443

== ENCOUNTER 2024-08-03 09:56 | Outpatient (AMB) | payer OTHER, SELFPAY ==
--- NOTE | 2024-08-03 09:58 | MHC.PC.OV ---
Vital Signs 08/03/24 10:09 Height 5 ft 6 in Weight 195 lb 6 oz BMI 31.5 BP 118/70 Blood Pressure Location Rt brachial Position Sitting Respiration 16 Pulse 76 Pulse Source Pulse Oximeter Temp 97.5 F Temp Source Temporal Artery Scan Pulse Oximetry (%) 98 Oxygen Delivery Method Room Air Intake Visit Reasons: 2 mos anxiety, depression Intake Note: patient here for follow up on Anxiety and depression Striker Out Required: No Allergies cat dander Allergy (Intermediate, Verified 08/03/24 10:07) Difficulty Breathing latex Allergy (Unknown, Verified 08/03/24 10:07) Unknown Tobacco use date assessed: 08/03/24 Dental Screening Dental Screen Date: 08/03/24 Did you have a dental visit in the last 12 months?: Yes Did you have a dental problem in the last 6 months where you did not have access to dental care?: No Was dental information given to patient?: Patient has dentist HPI HPI Comments History of Present Illness Details 54-year-old male presents for anxiety and depression follow-up. He started weekly psychotherapy and has had 3 sessions so far. He notes increased anxiety and depressive symptoms since starting therapy. He attributes his anxiety and depressive symptoms to uncovering past issues during therapy; he thinks the process is not negative and his symptoms will improve over time. He finds therapy effective. He denies functional limitations but missed work recently. He inquires about [facility] paperwork for future work absences due to his mental illness. Request an increase of his buspirone. He denies suicide or homicidal ideation. [facility] Medical History Graves' disease Elevated cholesterol Asthma, mild intermittent, well-controlled Chronic GERD Hypothyroidism (acquired) Surgical History History of tonsillectomy Family History Father Hypertension Mother Family history of thyroid problem Family/Other Depression Bipolar 1 disorder Alcohol abuse Other Mental health disorder Social History Household Members: Spouse Both parents involved: No Caregiver staying overnight: No Housing: House Are you a primary family member caretaker to a significant other at home: No Do you presently have visiting nurse or other home services: No 75 years or older and lives alone: No Alcohol intake: current Alcohol intake frequency: a few times a month Alcohol type: beer Patient Tobacco Use Status: Former Tobacco user Tobacco use type: Cigarette Years Smoked: 20 e-Cigarette/Vaping Use: Former Use (THC Vape) Second Hand Smoke Exposure: No service: Yes Current occupational status: employed Current occupation: RN Current occupational exposures/hazards: No Cognitive needs: No Hearing needs: No Vision needs: No Questionnaire PHQ-9 Over the last 2 weeks, how often have you been bothered by any of the following problems? 1. Little interest or pleasure in doing things: more than half the days 2. Feeling down, depressed, or hopeless: more than half the days 3. Trouble falling or staying asleep, or sleeping too much: more than half the days 4. Feeling tired or having little energy: more than half the days 5. Poor appetite or overeating: more than half the days 6. Feeling bad about yourself - or that you are a failure or have let yourself or your family down: more than half the days 7. Trouble concentrating on things, such as reading the newspaper or watching television: more than half the days 8. Moving or speaking so slowly that other people could have noticed. Or the opposite - being so fidgety or restless that you have been moving around a lot more than usual: more than half the days 9. Thoughts that you would be better off or of hurting yourself in some way: not at all Total score: 16 Depression Screening Interpretation: Positive Depression Screening Follow-up: Existing condition and In treatment Depression Screening Done: Yes 87311 - PHQ-9 Billing: Yes Source: Developed by Drs. Toan Peng, Lala Zeng, Hammad Gipson and colleagues, with an educational mami from [employer]. Thrive Questionnaire Date Thrive assessed: 08/03/24 I am a: Patient What is your living situation today?: I have a steady place to live Within the past 12 months, did the food you bought not last and you didn't have the money to get more?: I choose not to answer this question Within the past 12 months, did you worry whether your food would run out before you got money to buy more?: I choose not to answer this question Do you have trouble paying for medicines?: I choose not to answer this question Do you have trouble getting transportation to medical appointments?: I choose not to answer this question Do you have trouble paying your heating and electricity bill?: I choose not to answer this question Do you have trouble taking care of your child, family member or friend?: I choose not to answer this question Do you have trouble with day-to-day activities such as bathing, preparing meals, shopping, managing finances, etc.?: I choose not to answer this question Are you currently unemployed and looking for a job?: I choose not to answer this question Are you interested in more education?: I choose not to answer this question Please select the resources that you would like help with: None Currently or been in a relationship where the following occur: I choose not to answer THRIVE Score: 0 AUDIT C Alcohol Use Questionnaire (AUDIT-C) 1. How often do you have a drink containing alcohol?: 2-3 times a week 2. How many drinks containing alcohol do you have on a typical day when you are drinking?: 1 or 2 3. How often do you have six or more drinks on one occasion?: Less than monthly Total Score: 4 Score Reviewed/Action Taken: Yes EMILEE-7 AMB Questionnaire EMILEE-7 Date EMILEE - 7 assessed: 08/03/24 Feeling nervous, anxious, or on edge: 3 = Nearly every day Not being able to stop or control worryin = Nearly every day Worrying too much about different things: 3 = Nearly every day Trouble relaxin = More than half the days Being so restless that it is hard to sit still: 2 = More than half the days Becoming easily annoyed or irritable: 3 = Nearly every day Feeling afraid as if something awful might happen: 2 = More than half the days Total EMILEE-7 score (0-4 normal; 5-9 mild; 10-14 moderate; 15-21 severe): 18 Source: Developed by Drs. Toan Peng, Laal Zeng, Hammad Gipson and colleagues, with an educational mami from [employer]. EMILEE-7 Assessment Billing EMILEE-7 Assessment Tool: EMILEE-7 Assessment 43125 Review of Systems Const Details: Const Denies chills, Denies fatigue, Denies fever(s), Denies headache(s) and Denies weakness ENT Denies dizziness and Denies headache(s) Card Denies chest pain, Denies lightheadedness, Denies dyspnea and Denies other (Palpitations) Resp Denies cough, Denies dyspnea, Denies wheezing and Denies other ( shortness of breath) GI Denies abdominal pain, Denies melena, Denies hematochezia, Denies change in bowel habits, Denies dyspepsia and Denies nausea Denies hematuria and Denies dysuria Musc Denies abnormal gait, Denies myalgias, Denies arthralgias, Denies numbness and Denies tingling Skin/Breast Denies rash, Denies unusual bruising and Denies wounds Neuro Denies abnormal gait, Denies dizziness, Denies headache(s), Denies memory loss, Denies numbness, Denies Sensory deficit (Neuro), Denies tingling and Denies weakness Psych Denies anxiety, Denies depression, Denies memory loss Endo Denies cold intolerance, Denies fatigue, Denies heat intolerance, Denies polydipsia and Denies polyuria Aller/Immun Denies wheezing Physical exam (Primary Care) Vital Signs: Last Vital Signs Temp 97.5 F 08/03/24 10:09 Pulse 76 08/03/24 10:09 Resp 16 08/03/24 10:09 BP 118/70 08/03/24 10:09 Pulse Ox 98 08/03/24 10:09 Oxygen Delivery Method Room Air 08/03/24 10:09 BMI result Body Mass Index 31.5 Tobacco/Smoking Status: Tobacco use Status Tobacco use date assessed 08/03/24 08/03/24 10:11 Patient Tobacco Use Status Former Tobacco user 08/03/24 09:59 Tobacco use type Cigarette 08/03/24 09:59 e-Cigarette/Vaping Use Former Use (THC Vape) 08/03/24 09:59 PHQ-9: PHQ-9 Score PHQ-9: Total score 16 08/03/24 10:09 Depression Screening Interpretation: Positive Depression Screening Follow-up: Existing condition and In treatment Thrive Assessment: Date of Thrive Assessment Date Thrive assessed 08/03/24 08/03/24 10:06 Currently or been in a relationship where the following occur: I choose not to answer Const Other: General: no acute distress and well developed Nutritional Appearance: well nourished Orientation/consciousness: patient oriented x3 [facility] Head: Yes normocephalic and Yes atraumatic Eyes General: appearance normal, both eyes and all related structures Pupils: Equal, round and reactive pupils present EOM: EOMs intact bilaterally Resp Effort & Inspection: normal respiratory effort Auscultation: clear to auscultation bilaterally Cardio Rate: regular rate Rhythm: regular rhythm Heart sounds: S1 normal heart sound present, S2 normal heart sound present, no gallops, no murmurs and no rubs GI Palpation (GI): No Abdominal aortic bruit present, Soft to palpation, nontender, No hepatosplenomegaly present and No Rebound tenderness present Auscultation: normal bowel sounds General: Yes no CVA tenderness Back/Spine/Pelvis Back: no CVA tenderness Cervical Spine: cervical ROM normal and No Cervical spine tenderness Thoracic/Lumbar Spine: thoraco-lumbar ROM normal, No pain with thoraco-lumbar ROM, No thoracic spinal tenderness and No lumbar spinal tenderness Extrem General: Yes normal to inspection, No edema and No calf tenderness Skin General: warm and dry. Normal skin color. Normal skin turgor Neuro General: patient oriented x3, gait normal and no focal neuro deficit Cranial nerves: Yes Equal, round and reactive pupils present Cognition (Neuro): normal cognition Gait exam (Neuro): Normal gait present Sensory Exam: No Sensory deficit (Neuro) Psych Appearance: grossly normal Affect: normal affect Attitude: cooperative Thought process: Normal thought process present Coding Level of Care Code Est Pt Level 4 (39874) Diagnoses Anxiety and depression F41.9; F32.A Hypothyroidism (acquired) E03.9 Elevated cholesterol E78.00 Additional Codes EMILEE-7 Assessment Billing - EMILEE-7 Assessment Tool: EMILEE-7 Assessment 46087 ([id number]) PHQ-9 - 77706 - PHQ-9 Billing: Yes ([id number]) Assessment & Plan Assessment & Plan (1) Anxiety and depression: Code(s): F41.9 - Anxiety disorder, unspecified; F32.A - Depression, unspecified Category: Medical Plan: PHQ-9 and EMILEE-7 scores revealed moderately severe depression and severe anxiety respectively. Citalopram increased to 40 mg daily and buspirone increased to 50 mg twice daily; advised to take as prescribed. Continue psychotherapy as planned. Routine exercise encouraged. He may bring FMLA paperwork and will process for him to have 1 or 2 days off work, monthly, as needed for mental health. Advised to get lab work done before his next visit. Follow-up in 3 months or sooner with worsening or new symptoms. Verbalized understanding and agreed with the treatment plan. (2) Hypothyroidism (acquired): Code(s): E03.9 - Hypothyroidism, unspecified Category: Medical Plan: Continue current treatment regimen. Advised to get TSH/T4 blood work done a few days before his next visit. (3) Elevated cholesterol: Code(s): E78.00 - Pure hypercholesterolemia, unspecified Category: Medical Plan: Continue current treatment regimen. Advised to get fasting lipid panel blood work done a few days before his next visit; fast for 10-12 hours, may drink water only. Orders: Orders TSH reflex Free T4 3 Months E03.9 - Hypothyroidism, unspecified Lipid Panel 3 Months E78.00 - Pure hypercholesterolemia, unspecified Medications: New buspirone 15 mg PO BID 90 days 180 tabs 1RF citalopram 40 mg PO DAILY 90 days 90 tabs 1RF Discontinued citalopram Take with citalopram 20 mg daily to equal 30 mg daily Discontinued Reason: Doctor's Order 10 mg PO DAILY 90 days 90 tabs 1RF F41.8 - Other specified anxiety disorders citalopram Take with citalopram 10 mg daily to equal 30 mg daily Discontinued Reason: Doctor's Order 20 mg PO DAILY 90 days 90 tabs 1RF buspirone Discontinued Reason: Doctor's Order 10 mg PO BID 180 tabs 1RF
--- OUTSIDE RECORDS SUMMARY | 2024-08-03 10:03 | XMS_ITS | Patient Health Record ---
Author Organization [facility] Address [address] [place] [id number] Care Team Providers Care Degreaser Operator Name Role Phone SOUMYA LOYOLA, TANYA Primary [...] Problem GERD without esophagitis (K21.9) Active confirmed [id number] Problem Colon cancer screening (Z12.11) Active confirmed [id number] PLAN OF TREATMENT Future Test Test Name Order Date UPPER GI ENDOSCOPY 08/09/2020 COLONOSCOPY 08/09/2020 Insurance Providers Payer Name Payer Address Payer Phone Subscriber Number Group Number Insured Name Patient Relationship to Insured Coverage Start Date Coverage End Date [facility] [address] [facility] [place] [phone] [id number] RONEY CHOI Self - patient is the insured MEDICAL (GENERAL) HISTORY Medical History History ICD Code asthma Graves' disease elevated cholesterol GERD Surgical History Surgery Date(Month/Year) tonsillectomy CLANCY ablation
[2024-08-03 10:09] VITALS: BP 118/70; PULSE 76; RESP 16; TEMP 36.4; O2SAT 98; BMI 31.5
== END 2024-08-03 10:31 | disposition home or self-care (01) ==
PROVIDERS: PCP Nurse Practitioner Family; Visit Provider Nurse Practitioner Family
DX: F41.9 Anxiety disorder, unspecified (principal); F32.A Depression, unspecified; E03.9 Hypothyroidism, unspecified; E78.00 Pure hypercholesterolemia, unspecified

== ENCOUNTER → 2024-08-03 09:56 | Outpatient (BNVA) | payer OTHER, SELFPAY | PROVIDERS: PCP Nurse Practitioner Family; Visit Provider Nurse Practitioner Family | DX: F41.9 Anxiety disorder, unspecified (principal); F32.A Depression, unspecified; E03.9 Hypothyroidism, unspecified; E78.00 Pure hypercholesterolemia, unspecified | CPT/HCPCS: 96127 ==

== ENCOUNTER 2024-10-16 15:03 | Outpatient (AMB) | payer OTHER, SELFPAY ==
--- NOTE | 2024-10-16 15:18 | MHC.PC.OV ---
Vital Signs 10/16/24 15:22 Height 5 ft 6 in Weight 197 lb 6 oz BMI 31.9 BP 119/72 Blood Pressure Location Rt brachial Position Sitting Respiration 16 Pulse 74 Pulse Source Pulse Oximeter Temp 98.1 F Temp Source Oral Pulse Oximetry (%) 97 Oxygen Delivery Method Room Air Intake Visit Reasons: [facility] UC/diag.concussion Intake Note: patient here to follow up on concussion he is still having headaches some dizziness and sensitive to light. Paper Sample Clerk Required: No Allergies cat dander Allergy (Intermediate, Verified 10/16/24 15:58) Difficulty Breathing latex Allergy (Unknown, Verified 10/16/24 15:58) Unknown Medication List - Last Reconciled 10/16/24 by Tony Salazar CNP albuterol sulfate 90 mcg/actuation 2 puffs inhalation Q4-6H 30 days atorvastatin 10 mg PO DAILY buspirone 15 mg PO BID 90 days cetirizine (Zyrtec) 10 mg PO DAILY PRN citalopram 40 mg PO DAILY 90 days fluticasone propion-salmeterol 100-50 mcg/dose (Wixela Inhub) 1 inh inhalation BID fluticasone propionate 50 mcg/actuation (Flonase Allergy Relief) 1 spray intranasal BID levothyroxine 137 mcg PO DAILY montelukast (Singulair) 10 mg PO BEDTIME [id number]-vit K-lycop 400-20-370 mcg (Men's 50 Plus Multivitamin) 1 tab PO DAILY omeprazole 20 mg PO DAILY trazodone 25 mg (1/2 x 50 mg) PO BEDTIME 90 days Tobacco use date assessed: 10/16/24 Dental Screening Dental Screen Date: 10/16/24 Did you have a dental visit in the last 12 months?: Yes Did you have a dental problem in the last 6 months where you did not have access to dental care?: No Was dental information given to patient?: Patient has dentist HPI HPI Comments History of Present Illness Details 54-year-old male presents with complaints of generalized headaches. He notes that he fell on ice at work and stuck the left side of his head, left shoulder, and left hip last Wednesday. He has been experiencing generalized headaches, trouble falling and staying asleep, difficulty concentrating, forgetfulness, light sensitivity, and fatigue, poor appetite. He initially had left shoulder and hip pain with completely resolved. He has been taking ibuprofen as needed without improvement of his headache. He was evaluated at this workplace immediately after the fall and was diagnosed with concussion. His drove him to this visit and currently in the waiting room. [facility] Medical History Graves' disease Elevated cholesterol Asthma, mild intermittent, well-controlled Chronic GERD Hypothyroidism (acquired) Surgical History History of tonsillectomy Family History Father Hypertension Mother Family history of thyroid problem Family/Other Depression Bipolar 1 disorder Alcohol abuse Other Mental health disorder Social History Household Members: Spouse Both parents involved: No Caregiver staying overnight: No Housing: House Are you a primary disabilities caregiver to a significant other at home: No Do you presently have visiting nurse or other home services: No 75 years or older and lives alone: No Alcohol intake: current Alcohol intake frequency: a few times a month Alcohol type: beer Patient Tobacco Use Status: Former Tobacco user Tobacco use type: Cigarette Years Smoked: 20 e-Cigarette/Vaping Use: Former Use Second Hand Smoke Exposure: No service: Yes Current occupational status: employed Current occupation: RN Current occupational exposures/hazards: No Cognitive needs: No Hearing needs: No Vision needs: No Questionnaire PHQ-9 Over the last 2 weeks, how often have you been bothered by any of the following problems? 1. Little interest or pleasure in doing things: more than half the days 2. Feeling down, depressed, or hopeless: more than half the days 3. Trouble falling or staying asleep, or sleeping too much: more than half the days 4. Feeling tired or having little energy: nearly every day 5. Poor appetite or overeating: more than half the days 6. Feeling bad about yourself - or that you are a failure or have let yourself or your family down: more than half the days 7. Trouble concentrating on things, such as reading the newspaper or watching television: nearly every day 8. Moving or speaking so slowly that other people could have noticed. Or the opposite - being so fidgety or restless that you have been moving around a lot more than usual: nearly every day 9. Thoughts that you would be better off or of hurting yourself in some way: not at all Total score: 19 Depression Screening Interpretation: Positive Depression Screening Follow-up: Existing condition and In treatment Depression Screening Done: Yes Source: Developed by Drs. Toan Peng, Lala Zeng, Hammad Gipson and colleagues, with an educational mami from [employer] Thrive Questionnaire Date Thrive assessed: 08/03/24 I am a: Patient What is your living situation today?: I have a steady place to live Within the past 12 months, did the food you bought not last and you didn't have the money to get more?: Never true Within the past 12 months, did you worry whether your food would run out before you got money to buy more?: Never true Do you have trouble paying for medicines?: No Do you have trouble getting transportation to medical appointments?: No Do you have trouble paying your heating and electricity bill?: No Do you have trouble taking care of your child, family member or friend?: No Do you have trouble with day-to-day activities such as bathing, preparing meals, shopping, managing finances, etc.?: Yes Are you currently unemployed and looking for a job?: No Are you interested in more education?: No Please select the resources that you would like help with: None Currently or been in a relationship where the following occur: No concerns reported THRIVE Score: 0 AUDIT C Alcohol Use Questionnaire (AUDIT-C) 1. How often do you have a drink containing alcohol?: 2-4 times a month 2. How many drinks containing alcohol do you have on a typical day when you are drinking?: 1 or 2 3. How often do you have six or more drinks on one occasion?: Less than monthly Total Score: 3 EMILEE-7 AMB Questionnaire EMILEE-7 Date EMILEE - 7 assessed: 08/03/24 Feeling nervous, anxious, or on edge: 2 = More than half the days Not being able to stop or control worryin = More than half the days Worrying too much about different things: 2 = More than half the days Trouble relaxin = More than half the days Being so restless that it is hard to sit still: 3 = Nearly every day Becoming easily annoyed or irritable: 2 = More than half the days Feeling afraid as if something awful might happen: 2 = More than half the days Total EMILEE-7 score (0-4 normal; 5-9 mild; 10-14 moderate; 15-21 severe): 15 Source: Developed by Drs. Toan Peng, Lala Zeng, Hammad Gipson and colleagues, with an educational mami from [employer] Review of Systems Const Details: Const Denies chills, Reports fatigue, Denies fever(s), Reports headache(s) and Denies weakness ENT Denies dizziness and Reports headache(s) Card Denies chest pain, Denies lightheadedness, Denies dyspnea and Denies other (Palpitations) Resp Denies cough, Denies dyspnea, Denies wheezing and Denies other ( shortness of breath) GI Reports loss of appetite, Denies abdominal pain, Denies melena, Denies hematochezia, Denies change in bowel habits, Denies dyspepsia and Denies nausea Denies hematuria and Denies dysuria Musc Denies abnormal gait, Denies myalgias, Denies arthralgias, Denies numbness and Denies tingling Skin/Breast Denies rash, Denies unusual bruising and Denies wounds Neuro Denies abnormal gait, Denies dizziness, Reports headache(s), Reports memory loss, Denies numbness, Denies Sensory deficit (Neuro), Denies tingling and Denies weakness Psych Reports anxiety, Reports depression, Reports memory loss Endo Denies cold intolerance, Reports fatigue, Denies heat intolerance, Denies polydipsia and Denies polyuria Aller/Immun Denies wheezing Physical exam (Primary Care) Vital Signs: Last Vital Signs Temp 98.1 F 10/16/24 15:22 Pulse 74 10/16/24 15:22 Resp 16 10/16/24 15:22 BP 119/72 10/16/24 15:22 Pulse Ox 97 10/16/24 15:22 Oxygen Delivery Method Room Air 10/16/24 15:22 BMI result Body Mass Index 31.9 Tobacco/Smoking Status: Tobacco use Status Tobacco use date assessed 10/16/24 10/16/24 15:25 Patient Tobacco Use Status Former Tobacco user 10/16/24 15:20 Tobacco use type Cigarette 10/16/24 15:20 e-Cigarette/Vaping Use Former Use 10/16/24 15:20 PHQ-9: PHQ-9 Score PHQ-9: Total score 19 10/16/24 15:20 Depression Screening Interpretation: Positive Depression Screening Follow-up: Existing condition and In treatment Thrive Assessment: Date of Thrive Assessment Date Thrive assessed 08/03/24 10/16/24 15:20 Currently or been in a relationship where the following occur: No concerns reported Const Other: General: no acute distress and well developed Nutritional Appearance: well nourished Orientation/consciousness: patient oriented x3 HENMT Head: Yes normocephalic and Yes atraumatic Eyes General: appearance normal, both eyes and all related structures Pupils: Equal, round and reactive pupils present EOM: EOMs intact bilaterally Resp Effort & Inspection: normal respiratory effort Auscultation: clear to auscultation bilaterally Cardio Rate: regular rate Rhythm: regular rhythm Heart sounds: S1 normal heart sound present, S2 normal heart sound present, no gallops, no murmurs and no rubs GI Palpation (GI): No Abdominal aortic bruit present, Soft to palpation, nontender, No hepatosplenomegaly present and No Rebound tenderness present Auscultation: normal bowel sounds General: Yes no CVA tenderness Back/Spine/Pelvis Back: no CVA tenderness Cervical Spine: cervical ROM normal and No Cervical spine tenderness Thoracic/Lumbar Spine: thoraco-lumbar ROM normal, No pain with thoraco-lumbar ROM, No thoracic spinal tenderness and No lumbar spinal tenderness Extrem General: Yes normal to inspection, No edema and No calf tenderness Skin General: warm and dry. Normal skin color. Normal skin turgor Neuro General: patient oriented x3, gait normal, Slow memory recall, otherwise no focal neuro deficit Cranial nerves: Yes Equal, round and reactive pupils present Cognition (Neuro): normal cognition Gait exam (Neuro): Normal gait present Sensory Exam: No Sensory deficit (Neuro) Psych Appearance: grossly normal Affect: normal affect Attitude: cooperative Thought process: Normal thought process present Coding Level of Care Code Est Pt Level 3 (98417) Diagnoses Concussion S06.0X9A Anxiety and depression F41.9; F32.A Assessment & Plan Assessment & Plan (1) Concussion: Code(s): S06.0X9A - Concussion with loss of consciousness of unspecified duration, initial encounter Category: Medical Plan: Generalized headaches, trouble falling and staying asleep, difficulty concentrating, forgetfulness, light sensitivity, and fatigue, poor appetite after a fall on ice at his work place struck the left side of his head, left shoulder, and left hip. Left shoulder pain and left hip pain have completely resolved. Slow memory recall, otherwise no focal neuro deficit. No overt injury or trauma. Recommended by his practices to go to the ED which he agreed. His will drive him to the ED. The nurse called [facility] and gave report that the patient is on his way for concussion. Encouraged to follow-up for an ED follow-up visit. Verbalized understanding and agreed with the plan. (2) Anxiety and depression: Code(s): F41.9 - Anxiety disorder, unspecified; F32.A - Depression, unspecified Category: Medical Plan: PHQ-9 and EMILEE-7 scores revealed moderately severe depression and severe anxiety respectively. Continue current treatment regimen. Follow-up with worsening or new symptoms. Verbalized understanding and agreed with the treatment plan.
[2024-10-16 15:22] VITALS: BP 119/72; PULSE 74; RESP 16; TEMP 36.7; O2SAT 97; BMI 31.9
--- OUTSIDE RECORDS SUMMARY | 2024-10-16 17:23 | XMS_ITS | Patient Health Record ---
Author Organization [facility] Address [address] [place] [id number] Care Team Providers Care Produce Shipper Name Role Phone SOUMYA LOYOLA, TANYA Primary [...] W/U Status Risk SNOMED Code Notes Problem Colon cancer screening (Z12.11) Active confirmed 290034031 Problem GERD without esophagitis (K21.9) Active confirmed [id number] PLAN OF TREATMENT Future Test Test Name Order Date UPPER GI ENDOSCOPY 08/09/2020 COLONOSCOPY 08/09/2020 Insurance Providers Payer Name Payer Address Payer Phone Subscriber Number Group Number Insured Name Patient Relationship to Insured Coverage Start Date Coverage End Date [facility] [address] [facility] [place] [phone] [id number] RONEY CHOI Self - patient is the insured MEDICAL (GENERAL) HISTORY Medical History History ICD Code asthma Graves' disease elevated cholesterol GERD Surgical History Surgery Date(Month/Year) tonsillectomy CLANCY ablation
== END 2024-10-16 16:13 | disposition home or self-care (01) ==
PROVIDERS: PCP Nurse Practitioner Family; Visit Provider Nurse Practitioner Family
DX: S06.0X9A Concussion with loss of consciousness of unspecified duration, initial encounter (principal); F41.9 Anxiety disorder, unspecified; F32.A Depression, unspecified

== ENCOUNTER → 2024-10-16 15:03 | Outpatient (BNVA) | payer OTHER, SELFPAY | PROVIDERS: PCP Nurse Practitioner Family; Visit Provider Nurse Practitioner Family ==

== ENCOUNTER 2024-10-16 16:31 | Emergency (ER) | payer OTHER, SELFPAY ==
--- NOTE | ~2024-10-16 | CT_ITS ---
CLINICAL HISTORY: fall w head strke CT cervical spine without contrast Comparison: None Findings: Straightening of the cervical spine is likely positional. No significant degenerative change. No acute fractures or dislocations. No acute findings on limited view of the intracranial contents. No cervical fluid collections or masses. No consolidation or effusion at the lung apices. IMPRESSION: No acute findings. This document has been electronically signed by: Carolyn Adam MD on 10/16/2024 18:56:37
--- NOTE | ~2024-10-16 | CT_ITS ---
CLINICAL HISTORY: fall w head strike, confused CT head without contrast Comparison: None Findings: No intra-axial mass, midline shift, hydrocephalus, or acute hemorrhage. No significant atrophy-like change or white matter disease. Mucosal thickening in the maxillary sinuses and ethmoid air cells. The orbits are unremarkable. There is no acute fracture. IMPRESSION: 1. No acute intracranial findings. This document has been electronically signed by: Carolyn Adam MD on 10/16/2024 18:58:18
[2024-10-16 17:07] VITALS: BP 122/72; PULSE 74; RESP 16; O2SAT 99; BMI 32.3
--- NOTE | 2024-10-16 17:10 | ED.HEATRA ---
HPI - Head Injury General Chief complaint: Fall Stated complaint: concussion 10/10/ H/A today Time Seen by Provider: 10/16/24 21:44 Source: patient Mode of arrival: ambulatory Limitations: no limitations History of Present Illness ED Provider: HPI Narrative: Patient apparently slipped and fell about a week ago hit his head to the ground was seen in the hospital no CT scan was done comes here as still having the headache PCP sent the patient here for CT scan does have poor concentration and headache with slight confusion feeling no memory loss no vomiting no seizures Related Data Home Medications ?Medication ?Instructions ?Recorded ?Confirmed cetirizine 10 mg tablet (Zyrtec) 10 mg PO DAILY PRN 06/03/21 10/16/24 kwkayzhrusst-qyd-zewti acid-vit 1 tab PO DAILY 06/03/21 10/16/24 K-lycop 400 mcg-20 mcg-370 mcg tablet (Men's 50 Plus Multivitamin) fluticasone propionate 50 1 spray intranasal BID 07/18/24 10/16/24 mcg/actuation nasal spray,suspension (Flonase Allergy Relief) Previous Rx's ?Medication ?Instructions ?Recorded albuterol sulfate 90 mcg/actuation 2 puff inhalation Q4-6H 30 days 09/20/23 aerosol inhaler #8.5 grams omeprazole 20 mg capsule,delayed 20 mg PO DAILY #90 caps 04/28/24 release trazodone 50 mg tablet 25 mg (1/2 x 50 mg) PO BEDTIME 90 07/25/24 days #45 tabs buspirone 15 mg tablet 15 mg PO BID 90 days #180 tabs 08/03/24 citalopram 40 mg tablet 40 mg PO DAILY 90 days #90 tabs 08/03/24 atorvastatin 10 mg tablet 10 mg PO DAILY #90 tabs 09/11/24 fluticasone 100 mcg-salmeterol 50 1 inh inhalation BID #3 ea 09/11/24 mcg/dose blistr powdr for inhalation (Wixela Inhub) levothyroxine 137 mcg tablet 137 mcg PO DAILY #90 tabs 09/11/24 montelukast 10 mg tablet 10 mg PO BEDTIME #30 tabs 10/16/24 (Singulair) Allergies Allergy/AdvReac Type Severity Reaction Status Date / Time cat dander Allergy Intermediate Difficulty Verified 10/16/24 17:09 Breathing latex Allergy Unknown Unknown Verified 10/16/24 17:09 Review of Systems Review of Systems: Yes all other systems are reviewed and are negative [facility] Past Medical History Medical History Graves' disease Elevated cholesterol Asthma, mild intermittent, well-controlled Chronic GERD Hypothyroidism (acquired) Surgical History History of tonsillectomy Family History Family History Father Hypertension Mother Family history of thyroid problem Family/Other Depression Bipolar 1 disorder Alcohol abuse Other Mental health disorder Social History Social History Household Members: Spouse Housing: House Are you a primary healthcare risk control consultant to a significant other at home: No Do you presently have visiting nurse or other home services: No Alcohol intake: current Alcohol intake frequency: a few times a month Alcohol type: beer Patient Tobacco Use Status: Former Tobacco user Tobacco use type: Cigarette Years Smoked: 20 e-Cigarette/Vaping Use: Former Use Second Hand Smoke Exposure: No Advance Directives: No Advance Directives Information Provided: No service: Yes Current occupational status: employed Current occupation: RN Current occupational exposures/hazards: No Cognitive needs: No Hearing needs: No Vision needs: No Physical Exam Vital Signs: Vital Signs: Last Vital Signs Temp 98.1 F 10/16/24 22:14 Pulse 76 10/16/24 22:14 Resp 20 10/16/24 22:14 BP 128/81 10/16/24 22:14 Pulse Ox 98 10/16/24 22:14 O2 Del Method Room Air 10/16/24 22:14 BMI result Body Mass Index 32.3 Appearance: Alert. Oriented X3. No acute distress. Eyes: PERRLA, No Nystagmus ENT: Pharynx normal. Oral Mucosa moist Neck: Normal inspection. Neck supple. CVS: Normal heart rate and rhythm. Pulses normal. Respiratory: No respiratory distress. Equal air entry bilateral, no wheezing/rales/rhonchi Abdomen: Soft and nontender. Bowel sounds are present, no mass palpable, no CVA tenderness Skin: Skin warm and dry. Normal skin color. Normal skin turgor. Extremities: No lower extremity edema. No calf tenderness Neuro: Oriented X 3. No motor deficit. No sensory deficit.No cerebellar signs , cranial nerves II-XII intact Course Course Course Narrative: This is a Rapid Medical Examination (RME) performed by Delroy Burgess PA-C in triage. Full HPI, ROS, assessment and treatment plan per primary provider in the Main ED. 54 yo male here for eval s/p slip and fall on ice last week. reports head strike, unknown LOC, not on thinners. was evaluated at at that time and cleared. reports continued poor concentration and confusion. called PCP, advised to come to ED for scans. Plan: ct head/c spine Medical Decision Making Medical Decision Making [facility] Narrative: Patient after minor head injury CT scan C-spine and head is negative for acute advised to take Tylenol/Motrin Differential Diagnosis Differential Diagnoses: The differential diagnosis associated with the presentation includes Intracranial hemorrhage/subdural hematoma/skull fracture Independent Interpretation I performed an independent interpretation of an: CT Scan Radiology Impression Discussion of test interpretation with radiology: I have reviewed the radiologist's reading. Radiologist Impression: Negative head and C-spine CT scan Discharge Plan Discharge Clinical Impression: Minor closed head injury Patient Disposition: Home, Self-Care Instructions: Head Injury (ED) Additional Instructions: Care and cautions as advised Report to the ER if increased headache/vomiting/change in mental status Prescriptions: No Action albuterol sulfate 90 mcg/actuation HFA aerosol inhaler 2 puff inhalation Q4-6H 30 Days Qty: 8.5 3RF trazodone 50 mg tablet 25 mg PO BEDTIME 90 Days Qty: 45 1RF fluticasone propion-salmeterol [Wixela Inhub] 100-50 mcg/dose blister with device 1 inh inhalation BID Qty: 3 1RF levothyroxine 137 mcg tablet 137 mcg PO DAILY Qty: 90 1RF atorvastatin 10 mg tablet 10 mg PO DAILY Qty: 90 0RF montelukast [Singulair] 10 mg tablet 10 mg PO BEDTIME Qty: 30 1RF omeprazole 20 mg capsule,delayed release(DR/EC) 20 mg PO DAILY Qty: 90 1RF cetirizine [Zyrtec] 10 mg tablet 10 mg PO DAILY PRN Men's 50 Plus Multivitamin 400-20-370 mcg tablet 1 tab PO DAILY fluticasone propionate [Flonase Allergy Relief] 50 mcg/actuation spray,suspension 1 spray intranasal BID Rx Instructions: administer into each nostril citalopram 40 mg tablet 40 mg PO DAILY 90 Days Qty: 90 1RF buspirone 15 mg tablet 15 mg PO BID 90 Days Qty: 180 1RF Interventions: ED Discharge Assessment Last Done: 10/16/24 22:14 Discharge Date/Time: 10/16/24 22:14 Print Language: Tamazight
[2024-10-16 22:00] VITALS: BP 128/81; PULSE 76; RESP 20; TEMP 36.7; O2SAT 98
[2024-10-16 22:14] VITALS: BP 128/81; PULSE 76; RESP 20; TEMP 36.7; O2SAT 98
== END 2024-10-16 22:14 | disposition home or self-care (01) ==
PROVIDERS: Emergency Provider Internal Medicine; PCP Nurse Practitioner Family
DX: S06.0X0A Concussion without loss of consciousness, initial encounter (principal); R51.9 Headache, unspecified; M54.2 Cervicalgia; W01.0XXA Fall on same level from slipping, tripping and stumbling without subsequent striking against object, initial encounter; Y93.9 Activity, unspecified; Y92.9 Unspecified place or not applicable; Y99.8 Other external cause status; Z87.891 Personal history of nicotine dependence; Z79.899 Other long term (current) drug therapy
CPT/HCPCS: 70450; 72125; 99282; 99284

== ENCOUNTER → 2024-10-16 17:08 | Outpatient (BNV) | payer OTHER, SELFPAY | PROVIDERS: PCP Nurse Practitioner Family; Visit Provider Radiology Diagnostic Radiology | DX: S09.90XA Unspecified injury of head, initial encounter (principal); W19.XXXA Unspecified fall, initial encounter | CPT/HCPCS: 70450; 72125 ==

== ENCOUNTER 2024-10-23 15:22 | Outpatient (AMB) | payer OTHER, SELFPAY ==
--- NOTE | 2024-10-23 14:46 | MHC.PC.OV ---
Intake Visit Reasons: Ed F/U head ache/[phone] Intake Note: patient here for ED follow up headache Milieu Manager Required: No Allergies cat dander Allergy (Intermediate, Verified 10/23/24 15:19) Difficulty Breathing latex Allergy (Unknown, Verified 10/23/24 15:19) Unknown Tobacco use date assessed: 10/23/24 Dental Screening Dental Screen Date: 10/23/24 Did you have a dental visit in the last 12 months?: Yes Did you have a dental problem in the last 6 months where you did not have access to dental care?: No Was dental information given to patient?: Patient has dentist HPI HPI Comments History of Present Illness Details 54-year-old male presents for a telehealth visit for ED discharge follow-up. He was evaluated by his PCP on 10/19/2024 s/p slip and fall and associated headaches, poor concentration, and confusion. He was sent to [facility] same day and was evaluated there. Neuro exam was normal. CT head/C-spine was unremarkable. He continues to experience headaches which has been ongoing for the past 2 weeks. He notes associated lack of appetite and sleep disturbance at night; however, he take naps during the day to make up for sleep disturbance at night. He was schedule for an office visit today. However, he requested a telehealth visit due to worsening headache after a short walk under the sun today with his sunglasses. He is concerned about driving a long distance for today's appointment. His is unavailable to drive him to this appointment. [facility] Medical History Graves' disease Elevated cholesterol Asthma, mild intermittent, well-controlled Chronic GERD Hypothyroidism (acquired) Surgical History History of tonsillectomy Family History Father Hypertension Mother Family history of thyroid problem Family/Other Depression Bipolar 1 disorder Alcohol abuse Other Mental health disorder Social History Household Members: Spouse Both parents involved: No Caregiver staying overnight: No Housing: House Are you a primary critical care specialist to a significant other at home: No Do you presently have visiting nurse or other home services: No 75 years or older and lives alone: No Alcohol intake: current Alcohol intake frequency: a few times a month Alcohol type: beer Patient Tobacco Use Status: Former Tobacco user Tobacco use type: Cigarette Years Smoked: 20 e-Cigarette/Vaping Use: Former Use Second Hand Smoke Exposure: No service: Yes Current occupational status: employed Current occupation: RN Current occupational exposures/hazards: No Cognitive needs: No Hearing needs: No Vision needs: No Questionnaire Thrive Questionnaire Date Thrive assessed: 08/03/24 EMILEE-7 AMB Questionnaire EMILEE-7 Date EMILEE - 7 assessed: 08/03/24 Source: Developed by Drs. Toan Peng, Lala Zeng, Hammad Gipson and colleagues, with an educational mami from [employer]. Review of Systems Const Details: Denies chills, Denies fatigue, Denies fever(s), Reports headache(s) and Denies weakness Cardiac Denies chest pain, Denies claudication, Denies leg edema, Denies lightheadedness, Denies palpitations, Denies dyspnea, Denies dyspnea on exertion, Denies orthopnea and Denies other (Loss of consciousness) Resp Denies cough, Denies excessive phlegm production, Denies dyspnea, Denies dyspnea on exertion, Denies snoring and Denies wheezing GI Reports as per HPI Physical exam (Primary Care) Tobacco/Smoking Status: Tobacco use Status Tobacco use date assessed 10/23/24 10/23/24 15:21 Patient Tobacco Use Status Former Tobacco user 10/23/24 14:49 Tobacco use type Cigarette 10/23/24 14:49 e-Cigarette/Vaping Use Former Use 10/23/24 14:49 Thrive Assessment: Date of Thrive Assessment Date Thrive assessed 08/03/24 10/23/24 14:49 Const Other: Neuro General: patient oriented x3 Telehealth Telehealth Telehealth Platform: Telephone Location of provider rendering services: practice address Location of patient: address on file Patient Identification confirmed using: Name, : Yes Telehealth method: voice only Patient verbally consented to treatment: Yes Patient verbally consented to billing insurance company: Yes Patient informed of any privacy concerns related to visit: Yes Coding Level of Care Code Tele Est Pt Level 3 (51914) Diagnoses Concussion S06.0X9A Time Spent (min) 15 Assessment & Plan Assessment & Plan (1) Concussion: Code(s): S06.0X9A - Concussion with loss of consciousness of unspecified duration, initial encounter Category: Medical Plan: Ongoing headaches, loss of appetite, and sleep disturbance. Alert and oriented x3. Recent head/C-spine CT is normal. May take Tylenol or ibuprofen as needed for pain or discomfort. Adequate rest, less screen time, and hydration encouraged. Informed that mild concussion May take 7 to 14 days to resolve and moderate concussion may take 1-3 months for resolution of symptoms. Follow-up as planned this month for anxiety, depression and labs review. Return sooner with symptoms or concerns. Verbalized understanding and agreed with treatment plan.
--- OUTSIDE RECORDS SUMMARY | 2024-10-23 18:18 | XMS_ITS | Patient Health Record ---
Author Organization [facility] Address [address] [place] [id number] Care Team Providers Care Scrap Charger Name Role Phone SOUMYA LOYOLA, TANYA Primary [...] Problem Colon cancer screening (Z12.11) Active confirmed [id number] Problem GERD without esophagitis (K21.9) Active confirmed [id number] PLAN OF TREATMENT Future Test Test Name Order Date UPPER GI ENDOSCOPY 08/09/2020 COLONOSCOPY 08/09/2020 Insurance Providers Payer Name Payer Address Payer Phone Subscriber Number Group Number Insured Name Patient Relationship to Insured Coverage Start Date Coverage End Date [facility] [address] [facility] [place] [phone] [id number] RONEY CHOI Self - patient is the insured MEDICAL (GENERAL) HISTORY Medical History History ICD Code asthma Graves' disease elevated cholesterol GERD Surgical History Surgery Date(Month/Year) tonsillectomy CLANCY ablation
== END 2024-10-23 15:59 | disposition home or self-care (01) ==
LOC: HO.HMCFM 15:22
PROVIDERS: PCP Nurse Practitioner Family; Visit Provider Nurse Practitioner Family
DX: S06.0X9A Concussion with loss of consciousness of unspecified duration, initial encounter (principal)

== ENCOUNTER → 2024-10-23 15:22 | Outpatient (BNVA) | payer OTHER, SELFPAY | PROVIDERS: PCP Nurse Practitioner Family; Visit Provider Nurse Practitioner Family ==

== ENCOUNTER 2024-11-01 09:23 | Outpatient (REF) | payer OTHER, SELFPAY ==
--- OUTSIDE RECORDS SUMMARY | 2024-11-01 10:10 | XMS_ITS | Patient Health Record ---
Author Organization [facility] Address [address] [place] [id number] Care Team Providers Care School Vocational Educator Name Role Phone SOUMYA LOYOLA, TANYA Primary Care Provider Mauricio Stringer Jr Unavailable [phone] Allergies Allergen (clinical drug ingredient) Drug/Non Drug Allergy documented on EMR Reaction Allergy Type Onset Date Status Latex latex (uncoded) local reaction/rash Allergy Active Reason For Referral No Information Medications Medication SIG (Take, Route, Frequency, Duration) Notes [...] UTH EVERY DAY Oral for 90 Active Immunizations Vaccine Route Administration Date Status Comme nts Influenza Unknown 05/23/2020 Administered Social History Tobacco Use: Social History Observation Description Date Details (start date - stop date) Former Smoker NA - NA Tobacco Use/Smoking Question Answer Notes Patient is [...] drinks (0 point) Points 2 Interpretation Negative Section Notes: There is a former history of heavy alcohol use Problems Problem Type SNOMED Code ICD Code Onset Dates Problem Status W/U Status Risk Notes Problem 475216780 Colon cancer screening (Z12.11) Active confirmed Problem 106390761 GERD without esophagitis (K21.9) Active confirmed Plan Of Treatment Future Test Test Name Order Date UPPER GI ENDOSCOPY 08/09/2020 COLONOSCOPY 08/09/2020 Insurance Providers Payer Name Payer Address Payer Phone Subscriber Number Group Number Insured Name Patient Relationship to Insured Coverage Start Date Coverage End Date [facility] [address] [facility] [place] [phone] [id number] RONEY CHOI Self - patient is the insured Medical (General) History Medical History History ICD Code asthma Graves' disease elevated cholesterol GERD Surgical History Surgery Date(Month/Year) tonsillectomy CLANCY ablation
[2024-11-01 12:34] LABS: Cholesterol 205 mg/dL (<200); HDL Cholesterol 50 mg/dL (>40); LDL Cholesterol Calculated 127 mg/dL (<100); Triglycerides 143 mg/dL (<150)
[2024-11-01 12:49] LABS: TSH reflex Free T4 2.04 uIU/mL (0.32-4.0)
== END 2024-11-01 09:24 | disposition home or self-care (01) ==
LOC: HO.WFDLDS 09:23
PROVIDERS: Visit Provider Nurse Practitioner Family
DX: E78.00 Pure hypercholesterolemia, unspecified (principal); E03.9 Hypothyroidism, unspecified
CPT/HCPCS: 36415; 80061; 84443

== ENCOUNTER 2024-11-03 09:58 | Outpatient (AMB) | payer OTHER, SELFPAY ==
--- NOTE | 2024-11-03 10:01 | A.OFFPC_ITS ---
Vital Signs 11/03/24 10:05 Height 5 ft 6 in Weight 195 lb BMI 31.5 BP 139/77 Blood Pressure Location Rt brachial Position Sitting Respiration 16 Pulse 76 Pulse Source Pulse Oximeter Temp 98.0 F Temp Source Oral Pulse Oximetry (%) 97 Oxygen Delivery Method Room Air Intake Visit Reasons: mos anxiety, depression, labs review Intake Note: patient here for follow up on anxiety, depression and lab review Hearing Consultant Required: No Allergies cat dander Allergy (Intermediate, Verified 11/03/24 10:14) Difficulty Breathing latex Allergy (Unknown, Verified 11/03/24 10:14) Unknown Medication List - Last Reconciled 11/03/24 by Tony Salazar CNP albuterol sulfate 90 mcg/actuation 2 puffs inhalation Q4-6H 30 days atorvastatin 10 mg PO DAILY buspirone 15 mg PO BID 90 days citalopram 40 mg PO DAILY 90 days fluticasone propion-salmeterol 100-50 mcg/dose (Wixela Inhub) 1 inh inhalation BID fluticasone propionate 50 mcg/actuation (Flonase Allergy Relief) 1 spray intranasal BID levothyroxine 137 mcg PO DAILY montelukast (Singulair) 10 mg PO BEDTIME xtowccfd-zkw-qotav-vit K-lycop 400-20-370 mcg (Men's 50 Plus Multivitamin) 1 tab PO DAILY omeprazole 20 mg PO DAILY trazodone 25 mg (1/2 x 50 mg) PO BEDTIME 90 days Tobacco use date assessed: 11/03/24 Dental Screening Dental Screen Date: 11/03/24 Did you have a dental visit in the last 12 months?: Yes Did you have a dental problem in the last 6 months where you did not have access to dental care?: No Was dental information given to patient?: Patient has dentist HPI HPI Comments History of Present Illness Details 54-year-old male presents for anxiety, d epression, and review of recent lab results follow-up. He admits to taking his medications as prescribed without adverse reactions. He reports intermittent generalized headache, Sleeping poorly, decreased appetite, trouble concentrating and light sensitivity is improving. He has been taking tylenol and ibuprofen with some relief. He has not been working since he fell and his symptoms started 3 weeks ago. He is able to drive and drove to this visit. He reports anxiety and depressive symptoms and notes that his anxiety is through the roof. He is worries about work and everything. [facility] Medical History Graves' disease Elevated cholesterol Asthma, mild intermittent, well-controlled Chronic GERD Hypothyroidism (acquired) Surgical History History of tonsillectomy Family History Father Hypertension Mother Family history of thyroid problem Family/Other Depression Bipolar 1 disorder Alcohol abuse Other Mental health disorder Social History Household Members: Spouse Both parents involved: No Caregiver staying overnight: No Housing: House Are you a primary overnight caregiver to a significant other at home: No Do you presently have visiting nurse or other home services: No 75 years or older and lives alone: No Alcohol intake: current Alcohol intake frequency: a few times a month Alcohol type: beer Patient Tobacco Use Status: Former Tobacco user Tobacco use type: Cigarette Years Smoked: 20 e-Cigarette/Vaping Use: Former Use Second Hand Smoke Exposure: No service: Yes Current occupational status: employed Current occupation: RN Current occupational exposures/hazards: No Cognitive needs: No Hearing needs: No Vision needs: No Questionnaire PHQ-9 Over the last 2 weeks, how often have you been bothered by any of the following problems? 1. Little interest or pleasure in doing things: more than half the days 2. Feeling down, depressed, or hopeless: several days 3. Trouble falling or staying asleep, or sleeping too much: nearly every day 4. Feeling tired or having little energy: nearly every day 5. Poor appetite or overeating: nearly every day 6. Feeling bad about yourself - or that you are a failure or have let yourself or your family down: several days 7. Trouble concentrating on things, such as reading the newspaper or watching television: nearly every day 8. Moving or speaking so slowly that other people could have noticed. Or the opposite - being so fidgety or restless that you have been moving around a lot more than usual: nearly every day 9. Thoughts that you would be better off or of hurting yourself in some way: not at all Total score: 19 Depression Screening Interpretation: Positive Depression Screening Follow-up: Existing condition and In treatment Depression Screening Done: Yes 30367 - PHQ-9 Billing: Yes Source: Developed by Drs. Toan Peng, Lala Zeng, Hammad Gipson and colleagues, with an educational mami from [employer]. Thrive Questionnaire Date Thrive assessed: 11/03/24 I am a: Patient What is your living situation today?: I have a steady place to live Within the past 12 months, did the food you bought not last and you didn't have the money to get more?: Never true Within the past 12 months, did you worry whether your food would run out before you got money to buy more?: Never true Do you have trouble paying for medicines?: No Do you have trouble getting transportation to medical appointments?: No Do you have trouble paying your heating and electricity bill?: No Do you have trouble taking care of your child, family member or friend?: No Do you have trouble with day-to-day activities such as bathing, preparing meals, shopping, managing finances, etc.?: Yes Are you currently unemployed and looking for a job?: No Are you interested in more education?: No Please select the resources that you would like help with: None Currently or been in a relationship where the following occur: No concerns reported THRIVE Score: 0 AUDIT C Alcohol Use Questionnaire (AUDIT-C) 1. How often do you have a drink containing alcohol?: 2-3 times a week 2. How many drinks containing alcohol do you have on a typical day when you are drinking?: 1 or 2 3. How often do you have six or more drinks on one occasion?: Never Total Score: 3 EMILEE-7 AMB Questionnaire EMILEE-7 Date EMILEE - 7 assessed: 11/03/24 Feeling nervous, anxious, or on edge: 3 = Nearly every day Not being able to stop or control worryin = Nearly every day Worrying too much about different things: 3 = Nearly every day Trouble relaxin = Nearly every day Being so restless that it is hard to sit still: 3 = Nearly every day Becoming easily annoyed or irritable: 3 = Nearly every day Feeling afraid as if something awful might happen: 3 = Nearly every day Total EMILEE-7 score (0-4 normal; 5-9 mild; 10-14 moderate; 15-21 severe): 21 Source: Developed by Drs. Toan Peng, Lala Zeng, Hammad Gipson and colleagues, with an educational mami from [employer]. EMILEE-7 Assessment Billing EMILEE-7 Assessment Tool: EMILEE-7 Assessment 05321 Review of Systems Const Details: Const Denies chills, Denies fatigue, Denies fever(s), Reports headache(s) and Denies weakness ENT Denies dizziness and Reports headache(s) Card Denies chest pain, Denies lightheadedness, Denies dyspnea and Denies other (Palpitations) Resp Denies cough, Denies dyspnea, Denies wheezing and Denies other ( shortness of breath) GI Denies abdominal pain, Denies melena, Denies hematochezia, Denies change in bowel habits, Denies dyspepsia and Denies nausea Denies hematuria and Denies dysuria Musc Denies abnormal gait, Denies myalgias, Denies arthralgias, Denies numbness and Denies tingling Skin/Breast Denies rash, Denies unusual bruising and Denies wounds Neuro Denies abnormal gait, Denies dizziness, Reports headache(s), Denies memory loss, Denies numbness, Denies Sensory deficit (Neuro), Denies tingling and Denies weakness Psych Reports anxiety, Reports depression, Denies memory loss Endo Denies cold intolerance, Denies fatigue, Denies heat intolerance, Denies polydipsia and Denies polyuria Aller/Immun Denies wheezing Physical exam (Primary Care) Vital Signs: Last Vital Signs Temp 98.0 F 11/03/24 10:05 Pulse 76 11/03/24 10:05 Resp 16 11/03/24 10:05 BP 139/77 11/03/24 10:05 Pulse Ox 97 11/03/24 10:05 Oxygen Delivery Method Room Air 11/03/24 10:05 BMI result Body Mass Index 31.5 Tobacco/Smoking Status: Tobacco use Status Tobacco use date assessed 11/03/24 11/03/24 10:09 Patient Tobacco Use Status Former Tobacco user 11/03/24 10:09 Tobacco use type Cigarette 11/03/24 10:09 e-Cigarette/Vaping Use Former Use 11/03/24 10:09 PHQ-9: PHQ-9 Score PHQ-9: Total score 19 11/03/24 10:17 Depression Screening Interpretation: Positive Depression Screening Follow-up: Existing condition and In treatment Thrive Assessment: Date of Thrive Assessment Date Thrive assessed 11/03/24 11/03/24 10:12 Currently or been in a relationship where the following occur: No concerns reported Const Other: General: no acute distress and well developed Nutritional Appearance: well nourished Orientation/consciousness: patient oriented x3 HENMT Head: Yes normocephalic and Yes atraumatic Eyes General: appearance normal, both eyes and all related structures Pupils: Equal, round and reactive pupils present EOM: EOMs intact bilaterally Resp Effort & Inspection: normal respiratory effort Auscultation: clear to auscultation bilaterally Cardio Rate: regular rate Rhythm: regular rhythm Heart sounds: S1 normal heart sound present, S2 normal heart sound present, no gallops, no murmurs and no rubs GI Palpation (GI): No Abdominal aortic bruit present, Soft to palpation, nontender, No hepatosplenomegaly present and No Rebound tenderness present Auscultation: normal bowel sounds General: Yes no CVA tenderness Back/Spine/Pelvis Back: no CVA tenderness Cervical Spine: cervical ROM normal and No Cervical spine tenderness Thoracic/Lumbar Spine: thoraco-lumbar ROM normal, No pain with thoraco-lumbar ROM, No thoracic spinal tenderness and No lumbar spinal tenderness Extrem General: Yes normal to inspection, No edema and No calf tenderness Skin General: warm and dry. Normal skin color. Normal skin turgor Neuro General: patient oriented x3, gait normal and no focal neuro deficit Cranial nerves: Yes Equal, round and reactive pupils present Cognition (Neuro): normal cognition Gait exam (Neuro): Normal gait present Sensory Exam: No Sensory deficit (Neuro) Psych Appearance: grossly normal Affect: normal affect Attitude: cooperative Thought process: Normal thought process present Coding Level of Care Code Est Pt Level 4 (89395) Diagnoses Anxiety and depression F41.9; F32.A Post concussion syndrome F07.81 Additional Codes EMILEE-7 Assessment Billing - EMILEE-7 Assessment Tool: EMILEE-7 Assessment 34945 ([id number]) PHQ-9 - 06580 - PHQ-9 Billing: Yes ([id number]) Assessment & Plan Assessment & Plan (1) Anxiety and depression: Code(s): F41.9 - Anxiety disorder, unspecified; F32.A - Depression, unspecified Category: Medical Plan: Continued anxiety and depressive symptoms. His anxiety is through the roof. He is worries about work and everything. PHQ-9 and EMILEE-7 scores revealed moderately severe depression and severe anxiety respectively. His anxiety and depressive symptoms may be attributed to postconcussion syndrome. Advised to continue to take citalopram as prescribed. Will increase buspirone to 15 mg 3 times daily; advised to take as prescribed. Continue to take Tylenol ibuprofen for pain or discomfort. Referred to Neurology for further workup. Follow-up in 1 month or sooner with worsening or new symptoms. Verbalized understanding and agreed with treatment plan. (2) Post concussion syndrome: Code(s): F07.81 - Postconcussional syndrome Category: Medical Plan: Intermittent generalized headache, Sleeping poorly, decreased appetite, trouble concentrating and light sensitivity is improving. He has been taking tylenol and ibuprofen with some relief. He has not been working since he fell and his symptoms started 3 weeks ago. He is able to drive and drove to this visit. No focal neuro deficit. CT head/C-spine at [facility] on 10/16/2024 was unremarkable. Continue to take Tylenol ibuprofen as needed for pain or discomfort. Instructed on sleep hygiene. Stat referral made to Neurology. Follow-up in 1 month or sooner with worsening or new symptoms. Go to the ED for severe symptoms. Verbalized understanding and agreed with treatment plan. Orders: Referrals Neurology Referral F07.81 - Postconcussional syndrome Medications: Changed From buspirone 15 mg PO BID 90 days 180 tabs 1RF To buspirone 15 mg PO TID 270 tabs 1RF 90 days
[2024-11-03 10:05] VITALS: BP 139/77; PULSE 76; RESP 16; TEMP 36.7; O2SAT 97; BMI 31.5
--- OUTSIDE RECORDS SUMMARY | 2024-11-03 11:11 | XMS_ITS | Patient Health Record ---
Author Organization [facility] Address [address] [place] [phone] Care Team Providers Care Claims Consultant Name Role Phone SOUMYA LOYOLA, TANYA Primary Care Provider Mauricio Stringer Jr Unavailable Allergies Allergen (clinical drug ingredient) Drug/Non Drug [...] Problem Status W/U Status Risk Notes Problem [id number] Colon cancer screening (Z12.11) Active confirmed Problem [id number] GERD without esophagitis (K21.9) Active confirmed Plan Of Treatment Future Test Test Name Order Date UPPER GI ENDOSCOPY 08/09/2020 COLONOSCOPY 08/09/2020 Insurance Providers Payer Name Payer Address Payer Phone Subscriber Number Group Number Insured Name Patient Relationship to Insured Coverage Start Date Coverage End Date [facility] [address] [facility] [place] [phone] [id number] RONEY CHOI Self - patient is the insured Medical (General) History Medical History History ICD Code asthma Graves' disease elevated cholesterol GERD Surgical History Surgery Date(Month/Year) tonsillectomy CLANCY ablation
== END 2024-11-03 10:29 | disposition home or self-care (01) ==
LOC: HO.HMCFM 09:59
PROVIDERS: PCP Nurse Practitioner Family; Visit Provider Nurse Practitioner Family
DX: F41.9 Anxiety disorder, unspecified (principal); F32.A Depression, unspecified; F07.81 Postconcussional syndrome

== ENCOUNTER → 2024-11-03 09:58 | Outpatient (BNVA) | payer OTHER, SELFPAY | PROVIDERS: PCP Nurse Practitioner Family; Visit Provider Nurse Practitioner Family | DX: F41.9 Anxiety disorder, unspecified (principal); F32.A Depression, unspecified; F07.81 Postconcussional syndrome; Z79.899 Other long term (current) drug therapy | CPT/HCPCS: 96127 ==

== ENCOUNTER 2024-11-10 10:46 | Outpatient (AMB) | payer OTHER, SELFPAY ==
--- NOTE | 2024-11-10 11:03 | A.OFFVIS_ITS ---
Vital Signs 11/10/24 11:04 Height 5 ft 6 in Weight 192 lb BMI 31.0 Pulse 74 Pulse Oximetry (%) 97 Oxygen Delivery Method Room Air Intake Visit Reasons: Asthma Casino Host Required: No Advertising Agent: Advertising Agent offered & declined Accompanied by: Self / Same As Patient Allergies cat dander Allergy (Intermediate, Verified 11/10/24 11:10) Difficulty Breathing latex Allergy (Unknown, Verified 11/10/24 11:10) Unknown Medication List - Last Reconciled 11/10/24 by Miya Sue LPN albuterol sulfate 90 mcg/actuation 2 puffs inhalation Q4-6H 30 days atorvastatin 10 mg PO DAILY buspirone 15 mg PO TID 90 days citalopram 40 mg PO DAILY 90 days fluticasone propion-salmeterol 100-50 mcg/dose (Wixela Inhub) 1 inh inhalation BID fluticasone propionate 50 mcg/actuation (Flonase Allergy Relief) 1 spray intranasal BID levothyroxine 137 mcg PO DAILY montelukast (Singulair) 10 mg PO BEDTIME bikkcrvj-rxb-qllsr-vit K-lycop 400-20-370 mcg (Men's 50 Plus Multivitamin) 1 tab PO DAILY omeprazole 20 mg PO DAILY psyllium husk (Fiber (psyllium husk)) 0.52 grams PO DAILY trazodone 25 mg (1/2 x 50 mg) PO BEDTIME 90 days HPI HPI Asthma: Details: Jay is a pleasant 54 year old male, former smoker with 15 pack year history, quit 15 years ago with underlying asthma. At the last visit, he was started on Wixela in addition to Singulair with significant improvement in respiratory symptoms. He unfortunately has been without Wixela for the last few weeks and has had to use albuterol MDI more frequently. He also notes having influenza since the last visit, however able to recover at home. [facility] Medical History Graves' disease Elevated cholesterol Asthma, mild intermittent, well-controlled Chronic GERD Hypothyroidism (acquired) Surgical History History of tonsillectomy Family History Father Hypertension Mother Family history of thyroid problem Family/Other Depression Bipolar 1 disorder Alcohol abuse Other Mental health disorder Social History Household Members: Spouse Both parents involved: No Caregiver staying overnight: No Housing: House Are you a primary special needs child caregiver to a significant other at home: No Do you presently have visiting nurse or other home services: No 75 years or older and lives alone: No Alcohol intake: current Alcohol intake frequency: a few times a month Alcohol type: beer Patient Tobacco Use Status: Former Tobacco user Tobacco use type: Cigarette Years Smoked: 20 e-Cigarette/Vaping Use: Former Use Second Hand Smoke Exposure: No service: Yes Current occupational status: employed Current occupation: RN Current occupational exposures/hazards: No Cognitive needs: No Hearing needs: No Vision needs: No Review of Systems Const Denies chills, Denies excessive sweating, Denies fever(s), Denies headache(s) and Denies night sweats Eyes Denies dry eyes, Denies irritation and Denies itchy eyes ENT Reports Normal hearing present, Denies headache(s), Denies nasal congestion, Denies nasal discharge, Denies post nasal drip and Denies sore throat Card Denies chest pain, Denies chest pain at rest, Denies chest pain with activity, Denies claudication, Denies leg edema, Denies dyspnea, Denies dyspnea on exertion, Denies orthopnea and Denies paroxysmal nocturnal dyspnea Resp Denies chest congestion, Denies cough, Denies excessive phlegm production, Denies pain on inspiration, Denies pain with cough, Denies dyspnea, Denies dyspnea on exertion, Denies stridor and Denies wheezing Musc Denies myalgias Neuro Reports Normal hearing present and Denies headache(s) Endo Denies excessive sweating Charanjit/Lymph Denies lymphadenopathy Aller/Immun Denies itchy eyes, Denies seasonal rhinorrhea and Denies wheezing Physical Exam Vital Signs: Last Vital Signs Pulse 74 11/10/24 11:04 Pulse Ox 97 11/10/24 11:04 Oxygen Delivery Method Room Air 11/10/24 11:04 BMI result Body Mass Index 31.0 Const General: cooperative, healthy appearing, comfortable, no acute distress, well developed and alert Orientation/consciousness: patient oriented x3 Limitations: no limitations HEENT Head: Yes normal to inspection, Yes normocephalic and Yes atraumatic Ears: hearing grossly normal bilaterally and external ears normal Eyes General: appearance normal, both eyes and all related structures Eyelids: Yes eyelids normal Sclerae: sclerae normal EOM: EOMs intact bilaterally Neck Neck: Yes normal visual inspection and Yes no lymphadenopathy Lymphatic: no lymphadenopathy noted Chest Chest palpation & inspection: normal inspection of the chest Resp Effort & Inspection: normal respiratory effort, able to speak in complete sentences, no audible wheezes, no cough, no stridor, not tachypneic, no tripod positioning and no use of accessory muscles Auscultation: clear to auscultation bilaterally Cardio Jugular venous distension: no JVD Rate: regular rate Rhythm: regular rhythm Skin Other: warm, dry General skin exam: no rashes or lesions noted Neuro General: patient oriented x3 Cranial nerves: Yes Normal hearing present Cognition (Neuro): normal cognition Gait exam (Neuro): Normal gait present Extrem General: Yes normal to inspection, Yes capillary refill normal, Yes no clubbing, cyanosis or edema and Yes no pedal edema Psych Appearance: grossly normal and well kempt Speech and movement: Normal speech and movement present and Clear speech present Affect: normal affect Attitude: cooperative Thought process: Normal thought process present Thought content: Normal thought content present Insight: Good insight present (Psych) Judgement: Good judgement present (Psych) Assessment & Plan Assessment & Plan (1) Asthma: Code(s): J45.909 - Unspecified asthma, uncomplicated Category: Medical (2) Environmental allergies: Code(s): Z91.09 - Other allergy status, other than to drugs and biological substances Category: Medical Plan At this time, patient reports good control of respiratory symptoms on Wixela, Singular and albuterol MDI. Advised to continue. All questions were answered and patient is in agreement of plan. Will follow up in 3-6 months or sooner if needed. Medications: Refilled montelukast (Singulair) 10 mg PO BEDTIME 30 tabs 1RF fluticasone propion-salmeterol 100-50 mcg/dose (Wixela Inhub) 1 inh inhalation BID 3 ea 1RF montelukast (Singulair) 10 mg PO BEDTIME 30 tabs 6RF Coding Level of Care Code Est Pt Level 4 (73218) Diagnoses Asthma J45.909 Environmental allergies Z91.09
[2024-11-10 11:04] VITALS: PULSE 74; O2SAT 97; BMI 31.0
== END 2024-11-10 11:37 | disposition home or self-care (01) ==
PROVIDERS: PCP Nurse Practitioner Family; Visit Provider Nurse Practitioner Family
DX: J45.909 Unspecified asthma, uncomplicated (principal); Z91.09 Other allergy status, other than to drugs and biological substances
CPT/HCPCS: 99214

== ENCOUNTER 2024-12-05 09:07 | Outpatient (AMB) | payer OTHER, SELFPAY ==
--- NOTE | 2024-12-05 09:17 | MHC.PC.OV ---
Vital Signs 12/05/24 09:21 Height 5 ft 6 in Weight 189 lb 6 oz BMI 30.6 BP 130/62 Blood Pressure Location Rt brachial Position Sitting Respiration 16 Pulse 88 Pulse Source Pulse Oximeter Temp 98.2 F Temp Source Oral Pulse Oximetry (%) 97 Oxygen Delivery Method Room Air Intake Visit Reasons: 1 mos anxiety, depression, neuro symptoms Intake Note: patient here for 1 month anxiety, depression and neuro symptoms Filtering Machine Tender Helper Required: No Allergies cat dander Allergy (Intermediate, Verified 12/05/24 09:42) Difficulty Breathing latex Allergy (Unknown, Verified 12/05/24 09:42) Unknown Medication List - Last Reconciled 12/05/24 by Tony Salazar CNP albuterol sulfate 90 mcg/actuation 2 puffs inhalation Q4-6H 30 days atorvastatin 10 mg PO DAILY buspirone 15 mg PO TID 90 days citalopram 40 mg PO DAILY 90 days fluticasone propion-salmeterol 100-50 mcg/dose (Wixela Inhub) 1 inh inhalation BID fluticasone propionate 50 mcg/actuation (Flonase Allergy Relief) 1 spray intranasal BID levothyroxine 137 mcg PO DAILY montelukast (Singulair) 10 mg PO BEDTIME djrudbfy-phy-hlxrf-vit K-lycop 400-20-370 mcg (Men's 50 Plus Multivitamin) 1 tab PO DAILY omeprazole 20 mg PO DAILY psyllium husk (Fiber (psyllium husk)) 0.52 grams PO DAILY trazodone 25 mg (1/2 x 50 mg) PO BEDTIME 90 days Tobacco use date assessed: 12/05/24 Dental Screening Dental Screen Date: 12/05/24 Did you have a dental visit in the last 12 months?: Yes Did you have a dental problem in the last 6 months where you did not have access to dental care?: No Was dental information given to patient?: Patient has dentist HPI HPI Comments History of Present Illness Details 54-year-old male presents for anxiety, depression, and postconcussion syndrome follow-up. He reports controlled anxiety and depressive symptoms. He notes that his postconcussion symptoms have significantly improved. He is not able to focus and think clearly. He continues to experience headache that waxes and wanes and some sleep disturbances. His saw neurology at [facility] and was advised to rest. He was given a work excuse letter for 2 months. He has a follow-up with Neurology in January. He admits to taking his medications as prescribed without adverse reactions. [facility] Medical History Graves' disease Elevated cholesterol Asthma, mild intermittent, well-controlled Chronic GERD Hypothyroidism (acquired) Surgical History History of tonsillectomy Family History Father Hypertension Mother Family history of thyroid problem Family/Other Depression Bipolar 1 disorder Alcohol abuse Other Mental health disorder Social History Household Members: Spouse Both parents involved: No Caregiver staying overnight: No Housing: House Are you a primary pet care assistant to a significant other at home: No Do you presently have visiting nurse or other home services: No 75 years or older and lives alone: No Alcohol intake: current Alcohol intake frequency: a few times a month Alcohol type: beer Patient Tobacco Use Status: Former Tobacco user Tobacco use type: Cigarette Years Smoked: 20 e-Cigarette/Vaping Use: Former Use Second Hand Smoke Exposure: No service: Yes Current occupational status: employed Current occupation: RN Current occupational exposures/hazards: No Cognitive needs: No Hearing needs: No Vision needs: No Questionnaire PHQ-9 Over the last 2 weeks, how often have you been bothered by any of the following problems? 1. Little interest or pleasure in doing things: several days 2. Feeling down, depressed, or hopeless: several days 3. Trouble falling or staying asleep, or sleeping too much: nearly every day 4. Feeling tired or having little energy: more than half the days 5. Poor appetite or overeating: more than half the days 6. Feeling bad about yourself - or that you are a failure or have let yourself or your family down: several days 7. Trouble concentrating on things, such as reading the newspaper or watching television: nearly every day 8. Moving or speaking so slowly that other people could have noticed. Or the opposite - being so fidgety or restless that you have been moving around a lot more than usual: several days 9. Thoughts that you would be better off or of hurting yourself in some way: not at all Total score: 14 Depression Screening Interpretation: Positive Depression Screening Follow-up: Existing condition and In treatment Depression Screening Done: Yes 66863 - PHQ-9 Billing: Yes Source: Developed by Drs. Toan Peng, Lala Zeng, Hammad Gipson and colleagues, with an educational mami from [employer]. Thrive Questionnaire Date Thrive assessed: 10/16/24 I am a: Patient What is your living situation today?: I have a steady place to live Within the past 12 months, did the food you bought not last and you didn't have the money to get more?: Never true Within the past 12 months, did you worry whether your food would run out before you got money to buy more?: Never true Do you have trouble paying for medicines?: No Do you have trouble getting transportation to medical appointments?: No Do you have trouble paying your heating and electricity bill?: No Do you have trouble taking care of your child, family member or friend?: No Do you have trouble with day-to-day activities such as bathing, preparing meals, shopping, managing finances, etc.?: Yes Are you currently unemployed and looking for a job?: No Are you interested in more education?: No Please select the resources that you would like help with: None Currently or been in a relationship where the following occur: No concerns reported THRIVE Score: 0 EMILEE-7 AMB Questionnaire EMILEE-7 Date EMILEE - 7 assessed: 12/05/24 Feeling nervous, anxious, or on edge: 1 = Several days Not being able to stop or control worryin = Several days Worrying too much about different things: 2 = More than half the days Trouble relaxin = Several days Being so restless that it is hard to sit still: 3 = Nearly every day Becoming easily annoyed or irritable: 2 = More than half the days Feeling afraid as if something awful might happen: 2 = More than half the days Total EMILEE-7 score (0-4 normal; 5-9 mild; 10-14 moderate; 15-21 severe): 12 Source: Developed by Lala Hagen Kurt Kroenke and colleagues, with an educational mami from [employer]. EMILEE-7 Assessment Billing EMILEE-7 Assessment Tool: EMILEE-7 Assessment 50955 Review of Systems Const Details: Const Denies chills, Denies fatigue, Denies fever(s), Denies headache(s) and Denies weakness ENT Denies dizziness and Denies headache(s) Card Denies chest pain, Denies lightheadedness, Denies dyspnea and Denies other (Palpitations) Resp Denies cough, Denies dyspnea, Denies wheezing and Denies other ( shortness of breath) GI Denies abdominal pain, Denies melena, Denies hematochezia, Denies change in bowel habits, Denies dyspepsia and Denies nausea Denies hematuria and Denies dysuria Musc Denies abnormal gait, Denies myalgias, Denies arthralgias, Denies numbness and Denies tingling Skin/Breast Denies rash, Denies unusual bruising and Denies wounds Neuro Denies abnormal gait, Denies dizziness, Denies headache(s), Denies memory loss, Denies numbness, Denies Sensory deficit (Neuro), Denies tingling and Denies weakness Psych Denies anxiety, Denies depression, Denies memory loss Endo Denies cold intolerance, Denies fatigue, Denies heat intolerance, Denies polydipsia and Denies polyuria Aller/Immun Denies wheezing Physical exam (Primary Care) Vital Signs: Last Vital Signs Temp 98.2 F 12/05/24 09:21 Pulse 88 12/05/24 09:21 Resp 16 12/05/24 09:21 BP 130/62 12/05/24 09:21 Pulse Ox 97 12/05/24 09:21 Oxygen Delivery Method Room Air 12/05/24 09:21 BMI result Body Mass Index 30.6 Tobacco/Smoking Status: Tobacco use Status Tobacco use date assessed 12/05/24 12/05/24 09:24 Patient Tobacco Use Status Former Tobacco user 12/05/24 09:19 Tobacco use type Cigarette 12/05/24 09:19 e-Cigarette/Vaping Use Former Use 12/05/24 09:19 PHQ-9: PHQ-9 Score PHQ-9: Total score 14 12/05/24 09:28 Depression Screening Interpretation: Positive Depression Screening Follow-up: Existing condition and In treatment Thrive Assessment: Date of Thrive Assessment Date Thrive assessed 10/16/24 12/05/24 09:19 Currently or been in a relationship where the following occur: No concerns reported Const Other: General: no acute distress and well developed Nutritional Appearance: well nourished Orientation/consciousness: patient oriented x3 [facility] Head: Yes normocephalic and Yes atraumatic Eyes General: appearance normal, both eyes and all related structures Pupils: Equal, round and reactive pupils present EOM: EOMs intact bilaterally Resp Effort & Inspection: normal respiratory effort Auscultation: clear to auscultation bilaterally Cardio Rate: regular rate Rhythm: regular rhythm Heart sounds: S1 normal heart sound present, S2 normal heart sound present, no gallops, no murmurs and no rubs GI Palpation (GI): No Abdominal aortic bruit present, Soft to palpation, nontender, No hepatosplenomegaly present and No Rebound tenderness present Auscultation: normal bowel sounds General: Yes no CVA tenderness Back/Spine/Pelvis Back: no CVA tenderness Cervical Spine: cervical ROM normal and No Cervical spine tenderness Thoracic/Lumbar Spine: thoraco-lumbar ROM normal, No pain with thoraco-lumbar ROM, No thoracic spinal tenderness and No lumbar spinal tenderness Extrem General: Yes normal to inspection, No edema and No calf tenderness Skin General: warm and dry. Normal skin color. Normal skin turgor Nails: normal Neuro General: patient oriented x3, gait normal and no focal neuro deficit Cranial nerves: Yes Equal, round and reactive pupils present Cognition (Neuro): normal cognition Gait exam (Neuro): Normal gait present Sensory Exam: No Sensory deficit (Neuro) Psych Appearance: grossly normal Affect: normal affect Attitude: cooperative Thought process: Normal thought process present Coding Level of Care Code Est Pt Level 4 (54097) Diagnoses Anxiety and depression F41.9; F32.A Post concussion syndrome F07.81 Elevated cholesterol E78.00 Hypothyroidism (acquired) E03.9 Laboratory tests ordered as part of a complete physical exam (CPE) Z00.00 Additional Codes EMILEE-7 Assessment Billing - EMILEE-7 Assessment Tool: EMILEE-7 Assessment 66447 ([id number]) PHQ-9 - 01236 - PHQ-9 Billing: Yes ([id number]) Assessment & Plan Assessment & Plan (1) Anxiety and depression: Code(s): F41.9 - Anxiety disorder, unspecified; F32.A - Depression, unspecified Category: Medical Plan: Reports controlled anxiety and depressive symptoms. PHQ-9 and EMILEE-7 scores revealed moderate depression and anxiety. Continue current treatment regimen. Routine exercise encouraged. Advised to perform fasting blood work 2-3 days before next visit. Follow-up in 1 month for an extended physical exam and labs review. Return sooner with symptoms or concerns. Verbalized understanding and agreed with treatment plan (2) Post concussion syndrome: Code(s): F07.81 - Postconcussional syndrome Category: Medical Plan: His postconcussion symptoms have significantly improved. He is not able to focus and think clearly. He continues to experience headache that waxes and wanes and some sleep disturbances. His saw neurology at [facility] and was advised to rest. He was given a work excuse letter for 2 months. He has a follow-up with Neurology in January. Continue current treatment regimen. Follow-up with Neurology as planned. Verbalized understanding and agreed with treatment plan. (3) Elevated cholesterol: Code(s): E78.00 - Pure hypercholesterolemia, unspecified Category: Medical Plan: Recent total cholesterol and LDL levels a slightly elevated, 205 and 127 respectively. Declines recommended atorvastatin dose increased to 20 mg daily. He notes that he has been making healthy dietary changes and exercising routinely. Advised to limit foods high in saturated fat and avoid foods high in trans fat. Routine exercise encouraged. Will recheck lipid panel levels a month. Verbalized understanding and agreed with the plan. (4) Hypothyroidism (acquired): Code(s): E03.9 - Hypothyroidism, unspecified Category: Medical Plan: Seen recent TSH is normal. Continue current treatment regimen. (5) Laboratory tests ordered as part of a complete physical exam (CPE): Code(s): Z00.00 - Encounter for general adult medical examination without abnormal findings Category: Medical Plan: Fasting labs ordered as part of a complete physical exam. Advised to fast for at least 10 hours before getting labs drawn. May drink water Verbalized understanding and agreed with treatment plan. Orders: Orders Microalbumin, Random (w Creat) Today Z00.00 - Encounter for general adult medical examination without abnormal findings PSA, Ultra Sensitive Today Z00.00 - Encounter for general adult medical examination without abnormal findings Vitamin D 25-OH Total Today Z00.00 - Encounter for general adult medical examination without abnormal findings Complete Blood Count Auto Diff Today Z00.00 - Encounter for general adult medical examination without abnormal findings Comprehensive [place]. Panel Fast Today Z00.00 - Encounter for general adult medical examination without abnormal findings Lipid Panel Today Z00.00 - Encounter for general adult medical examination without abnormal findings UA CC w/rflx Micro + Cult Today Z00.00 - Encounter for general adult medical examination without abnormal findings
[2024-12-05 09:21] VITALS: BP 130/62; PULSE 88; RESP 16; TEMP 36.8; O2SAT 97; BMI 30.6
--- OUTSIDE RECORDS SUMMARY | 2024-12-05 10:05 | XMS_ITS | Patient Health Record ---
Author Organization [facility] Address [address] [place] [id number] Care Team Providers Care Manager Wound Care Name Role Phone SOUMYA LOYOLA, TANYA Primary Care Provider Mauricio Stringer Jr Unavailable [phone] Allergies Allergen (clinical drug ingredient) Drug/Non Drug [...] Problem Status W/U Status Risk Notes Problem [id number] Colon cancer screening (Z12.11) Active confirmed Problem [id number] GERD without esophagitis (K21.9) Active confirmed Plan Of Treatment Future Test Test Name Order Date UPPER GI ENDOSCOPY 08/09/2020 COLONOSCOPY 08/09/2020 Insurance Providers Payer Name Payer Address Payer Phone Subscriber Number Group Number Insured Name Patient Relationship to Insured Coverage Start Date Coverage End Date [facility] [address] [facility] [place] [phone] [id number] RONEY CHOI Self - patient is the insured Medical (General) History Medical History History ICD Code asthma Graves' disease elevated cholesterol GERD Surgical History Surgery Date(Month/Year) tonsillectomy CLANCY ablation
== END 2024-12-05 09:54 | disposition home or self-care (01) ==
LOC: HO.HMCFM 09:15
PROVIDERS: PCP Nurse Practitioner Family; Visit Provider Nurse Practitioner Family
DX: F41.9 Anxiety disorder, unspecified (principal); F32.A Depression, unspecified; F07.81 Postconcussional syndrome; E78.00 Pure hypercholesterolemia, unspecified; E03.9 Hypothyroidism, unspecified; Z00.00 Encounter for general adult medical examination without abnormal findings

== ENCOUNTER → 2024-12-05 09:07 | Outpatient (BNVA) | payer OTHER, SELFPAY | PROVIDERS: PCP Nurse Practitioner Family; Visit Provider Nurse Practitioner Family | DX: F41.9 Anxiety disorder, unspecified (principal); F32.A Depression, unspecified; F07.81 Postconcussional syndrome; E78.00 Pure hypercholesterolemia, unspecified; E03.9 Hypothyroidism, unspecified | CPT/HCPCS: 96127 ==

== ENCOUNTER 2025-01-01 09:34 | Outpatient (REF) | payer OTHER, SELFPAY ==
--- OUTSIDE RECORDS SUMMARY | 2025-01-01 09:52 | XMS_ITS | Patient Health Record ---
Author Organization [facility] Address [address] [place] [id number] Care Team Providers Care Emergency Man Name Role Phone SOUMYA LOYOLA, TANYA Primary [...] Problem Status W/U Status Risk Notes Problem [id number] Colon cancer screening (Z12.11) Active confirmed Problem [id number] GERD without esophagitis (K21.9) Active confirmed Plan Of Treatment Future Test Test Name Order Date UPPER GI ENDOSCOPY 08/09/2020 COLONOSCOPY 08/09/2020 Insurance Providers Payer Name Payer Address Payer Phone Subscriber Number Group Number Insured Name Patient Relationship to Insured Coverage Start Date Coverage End Date [facility] [address] [facility] [place] [phone] [id number] RONEY CHOI Self - patient is the insured Medical (General) History Medical History History ICD Code asthma Graves' disease elevated cholesterol GERD Surgical History Surgery Date(Month/Year) tonsillectomy CLANCY ablation
[2025-01-01 11:19] LABS: MANUAL DIFF FLAG NO
[2025-01-01 11:24] LABS: Basophils Percent Auto 0.6 % (0-2); Eosinophils Absolute Auto 0.2 X10*3/uL (0.0-0.4); Hematocrit 41.7 % (42.0-52.0); Imm Gran Abs Auto 0.02 X10*3/uL (0.00-0.03); Imm Gran Pct Auto 0.4 % (0.0-0.4); Lymphocytes Absolute Auto 1.2 X10*3/uL (1.2-4.9); Lymphocytes Percent Auto 23.1 % (20-40); Mean Corpuscular HGB Conc 33.6 g/dl (31.0-36.0); Mean Corpuscular Hemoglobin 31.3 pg (27.0-33.0); Mean Corpuscular Volume 93.1 fL (80.0-98.0); Mean Platelet Volume 9.8 fL (9.4-12.4); Monocytes Absolute Auto 0.3 X10*3/uL (0.1-1.2); Monocytes Percent Auto 5.8 % (2-11); Neutrophils Absolute Auto 3.6 x10*3/uL (2.0-8.3); Neutrophils Percent Auto 67.1 % (45-73); Platelet Count 235 X10*3/uL (160-400); Red Blood Count 4.48 X10*6/uL (4.60-5.80); Red Cell Distribution Width 12.6 % (11.0-16.0); White Blood Count 5.3 X10*3/uL (4.8-10.8)
[2025-01-01 12:06] LABS: Alanine Aminotransferase 26 U/L (0-40); Albumin Level 4.2 g/dL (3.5-5.0); Anion Gap 10 (12-20); Aspartate Amino Transferase 37 U/L (5-37); Bilirubin Total 0.5 mg/dL (0.0-1.0); Blood Urea Nitrogen 10 mg/dL (9-16); Calcium 9.2 mg/dL (8.4-10.2); Carbon Dioxide 27 mmol/L (22-29); Chloride 105 mmol/L (96-108); Cholesterol 187 mg/dL (<200); Estimated Glomerular Filt Rate > 60; Glucose Fasting 102 mg/dL (60-99); HDL Cholesterol 49 mg/dL (>40); LDL Cholesterol Calculated 109 mg/dL (<100); Potassium 4.3 mmol/L (3.3-5.1); Sodium 138 mmol/L (135-145); Total Protein 6.9 g/dL (6.5-8.0); Triglycerides 148 mg/dL (<150)
[2025-01-01 12:15] LABS: Vitamin D 25-OH Total 65.8 ng/mL (>30)
[2025-01-01 12:24] LABS: Alkaline Phosphatase 62 U/L (39-117)
[2025-01-01 14:34] LABS: Appearance Urine Clear; Color Urine Yellow; Glucose Urine UA Negative (Negative); Leukocyte Esterase Urine Negative (Negative); Nitrite Urine Negative (Negative); Urine Blood Negative (Negative); Urine Ketones Negative (Negative); Urine Protein Negative (Neg-Trace)
[2025-01-02 13:35] LABS: Creatinine Urine 165.18 mg/dL; Microalbum/Creatinine Ratio Ur 5.4 ug/mg cr (<30)
[2025-01-05 00:28] LABS: PSA, Ultra Sensitive 1.97 ng/mL
[2025-01-05 09:14] LABS: Immunoglobulin E 153 kU/L (<OR=114)
== END 2025-01-01 09:35 | disposition home or self-care (01) ==
LOC: HO.WFDLDS 09:34
PROVIDERS: Referring Provider Nurse Practitioner Family; Visit Provider Nurse Practitioner Family
DX: Z00.00 Encounter for general adult medical examination without abnormal findings (principal); Z91.09 Other allergy status, other than to drugs and biological substances; Z12.5 Encounter for screening for malignant neoplasm of prostate; Z13.6 Encounter for screening for cardiovascular disorders
CPT/HCPCS: 36415; 80053; 80061; 81003; 82043; 82306; 82570; 82785; 84153; 85025

== ENCOUNTER 2025-05-18 09:55 | Outpatient (AMB) | payer OTHER, SELFPAY ==
[2025-05-18 09:57] VITALS: BP 118/62; PULSE 75; O2SAT 98; BMI 30.7
--- NOTE | 2025-05-18 09:57 | A.OFFVIS_ITS ---
Vital Signs 05/18/25 09:57 Height 5 ft 6 in Weight 190 lb 8 oz BMI 30.7 BP 118/62 Blood Pressure Location Rt brachial Position Sitting Pulse 75 Pulse Source Pulse Oximeter Pulse Oximetry (%) 98 Oxygen Delivery Method Room Air Intake Visit Reasons: Asthma Allergies cat dander Allergy (Intermediate, Verified 05/18/25 09:59) Difficulty Breathing latex Allergy (Unknown, Verified 05/18/25 09:59) Unknown HPI HPI Asthma: Details: Jay is a pleasant 54 year old male, former 15 pack smoker, quit 15 years ago with underlying asthma. Since the last visit he reports good control of respiratory symptoms with the use of Wixela 100 mcg BID and Singulair, infrequently requiring albuterol MDI. He also notes that his cat recently and has noticed improvements since no further exposure, prior RAST + cat. At this time he denies any respiratory symptoms. He denies any visits to urgent care or hospitalizations related to respiratory distress since the last visit. [facility], LAT[facility] Medical History Graves' disease Elevated cholesterol Asthma, mild intermittent, well-controlled Chronic GERD Hypothyroidism (acquired) Surgical History History of tonsillectomy Family History Father Hypertension Mother Family history of thyroid problem Family/Other Depression Bipolar 1 disorder Alcohol abuse Other Mental health disorder Social History Household Members: Spouse Both parents involved: No Caregiver staying overnight: No Housing: House Are you a primary childcare teacher to a significant other at home: No Do you presently have visiting nurse or other home services: No 75 years or older and lives alone: No Alcohol intake: current Alcohol intake frequency: a few times a month Alcohol type: beer Patient Tobacco Use Status: Former Tobacco user Tobacco use type: Cigarette Years Smoked: 20 e-Cigarette/Vaping Use: Former Use Second Hand Smoke Exposure: No service: Yes Current occupational status: employed Current occupation: RN Current occupational exposures/hazards: No Cognitive needs: No Hearing needs: No Vision needs: No Review of Systems Const Denies chills, Denies excessive sweating, Denies fever(s), Denies headache(s) and Denies night sweats Eyes Denies dry eyes, Denies irritation and Denies itchy eyes ENT Reports Normal hearing present, Denies headache(s), Denies nasal congestion, Denies nasal discharge, Denies post nasal drip and Denies sore throat Card Denies chest pain, Denies chest pain at rest, Denies chest pain with activity, Denies claudication, Denies leg edema, Denies dyspnea, Denies dyspnea on exertion, Denies orthopnea and Denies paroxysmal nocturnal dyspnea Resp Denies chest congestion, Denies cough, Denies excessive phlegm production, Denies pain on inspiration, Denies pain with cough, Denies dyspnea, Denies dyspnea on exertion, Denies stridor and Denies wheezing Musc Denies myalgias Neuro Reports Normal hearing present and Denies headache(s) Endo Denies excessive sweating Charanjit/Lymph Denies lymphadenopathy Aller/Immun Denies itchy eyes, Denies seasonal rhinorrhea and Denies wheezing Physical Exam Vital Signs: Last Vital Signs Pulse 75 05/18/25 09:57 Pulse Ox 98 05/18/25 09:57 Oxygen Delivery Method Room Air 05/18/25 09:57 BMI result Body Mass Index 30.7 Const General: cooperative, healthy appearing, comfortable, no acute distress, well developed and alert Orientation/consciousness: patient oriented x3 Limitations: no limitations HEENT Head: Yes normal to inspection, Yes normocephalic and Yes atraumatic Ears: hearing grossly normal bilaterally and external ears normal Eyes General: appearance normal, both eyes and all related structures Eyelids: Yes eyelids normal Sclerae: sclerae normal EOM: EOMs intact bilaterally Neck Neck: Yes normal visual inspection and Yes no lymphadenopathy Lymphatic: no lymphadenopathy noted Chest Chest palpation & inspection: normal inspection of the chest Resp Effort & Inspection: normal respiratory effort, able to speak in complete sentences, no audible wheezes, no cough, no stridor, not tachypneic, no tripod positioning and no use of accessory muscles Auscultation: clear to auscultation bilaterally Cardio Jugular venous distension: no JVD Rate: regular rate Rhythm: regular rhythm Skin Other: warm, dry General skin exam: no rashes or lesions noted Neuro General: patient oriented x3 Cranial nerves: Yes Normal hearing present Cognition (Neuro): normal cognition Gait exam (Neuro): Normal gait present Extrem General: Yes normal to inspection, Yes capillary refill normal, Yes no clubbing, cyanosis or edema and Yes no pedal edema Psych Appearance: grossly normal and well kempt Speech and movement: Normal speech and movement present and Clear speech present Affect: normal affect Attitude: cooperative Thought process: Normal thought process present Thought content: Normal thought content present Insight: Good insight present (Psych) Judgement: Good judgement present (Psych) Assessment & Plan Assessment & Plan (1) Asthma: Code(s): J45.909 - Unspecified asthma, uncomplicated Category: Medical (2) Environmental allergies: Code(s): Z91.09 - Other allergy status, other than to drugs and biological substances Category: Medical Plan At this time, patient reports good control of respiratory symptoms on Wixela, Singular and albuterol MDI. Advised to continue. He is aware to call if symptoms change. All questions were answered and patient is in agreement of plan. Will follow up in 6-9 months or sooner if needed. Medications: Refilled albuterol sulfate 90 mcg/actuation 2 puffs inhalation Q4-6H 8.5 grams 3RF 30 days Coding Level of Care Code Est Pt Level 3 (47067) Diagnoses Asthma J45.909 Environmental allergies Z91.09
--- OUTSIDE RECORDS SUMMARY | 2025-05-18 11:08 | XMS_ITS | Patient Health Record ---
Author Organization [facility] Address [address] [place] [id number] Care Team Providers Care Field Crew Chief Name Role Phone SOUMYA LOYOLA, TANYA Primary Care Provider Mauricio Stringer Jr Unavailable [phone] Allergies Allergen (clinical drug ingredient) Drug/Non Drug [...] Problem Status W/U Status Risk Notes Problem [id number] Colon cancer screening (Z12.11) Active confirmed Problem [id number] GERD without esophagitis (K21.9) Active confirmed Plan Of Treatment Future Test Test Name Order Date UPPER GI ENDOSCOPY 08/09/2020 COLONOSCOPY 08/09/2020 Insurance Providers Payer Name Payer Address Payer Phone Subscriber Number Group Number Insured Name Patient Relationship to Insured Coverage Start Date Coverage End Date [facility] [address] [facility] [place] [phone] [id number] RONEY CHOI Self - patient is the insured Medical (General) History Medical History History ICD Code asthma Graves' disease elevated cholesterol GERD Surgical History Surgery Date(Month/Year) tonsillectomy CLANCY ablation
== END 2025-05-18 10:09 | disposition home or self-care (01) ==
LOC: HO.HPSW 09:56
PROVIDERS: PCP Nurse Practitioner Family; Visit Provider Nurse Practitioner Family
DX: J45.909 Unspecified asthma, uncomplicated (principal); Z91.09 Other allergy status, other than to drugs and biological substances
CPT/HCPCS: 99213